=== PATIENT | female | born 1995 | race Caucasian/White ===

== ENCOUNTER 2021-11-15 15:19 | Observation (INO) ==
[~2021-11-15 15:19] MED LIST: SODIUM CHLORIDE 0.9% 1000ML 1,000 ML IV SCH
[2021-11-15] MEDS ORDERED: SODIUM CHLORIDE 0.9% 250 ML IV PRN (15:27)
[2021-11-15] MEDS ORDERED: SODIUM CHLORIDE 0.9% 1000ML 1,000 ML IV ONE (15:27)
--- NOTE | 2021-11-15 15:30 | ED Triage Note ---
Date of Service November 15, 2021 History of Present Illness This patient was briefly evaluated while in triage. An abbreviated physical exam was performed. This patient is a 26-year-old Female who presents to the ED for evaluation of heavy vaginal bleeding. Patient was seen here earlier for a miscarriage. Bleeding has become heavy. She had a syncopal episode in triage. Physical Exam VITALS: Vitals are noted on the nurse's note and reviewed by myself. Vital signs stable. GENERAL: This is a 26-year-old female, pale, diaphoretic. HEART: Tachycardic, rhythm without murmurs gallops or rubs. LUNGS: Clear to auscultation bilaterally without wheezes, rales or rhonchi. NEURO: Patient was alert and oriented to person place and time. Initial orders for labs and / or imaging were placed and patient was placed in the waiting area until a bed is available. Please see further documentation for the full ED course.
[2021-11-15] MEDS ORDERED: SODIUM CHLORIDE 0.9% 1000ML 1,000 ML IV SCH (15:45)
[2021-11-15 16:13] LABS: Partial Thromboplastin Ratio 0.9; Partial Thromboplastin Time 24.7 Seconds (21.0-31.0); Prothrombin Time 10.7 Seconds (9.0-12.0)
--- NOTE | 2021-11-15 16:18 | Emergency Department Note ---
Impression & Plan Vaginal bleeding, Missed , Syncope, Acute hypotension, Anemia ED Provider Note NAME: SAM MCGOWAN AGE: 26 SEX: F : 1995 ARRIVES VIA: Walk-In INFORMANT: Patient, ED PROVIDER(S): Feroz Carmona DO CHIEF COMPLAINT: Vaginal bleeding HPI: Patient is a 26-year-old female who presented to the emergency department f or an evaluation of vaginal bleeding. The patient was seen in our facility earlier today. She was diagnosed with threatened miscarriage. She has an ultrasound from her previous [employer] visit that showed an intrauterine gestation but on her visit to our emergency department today her ultrasound showed a thickened endometrium but no intrauterine gestation. The patient started having worsening bleeding. She started passing clots and became very dizzy. She returned to the emergency department for further evaluation. The patient had a syncopal episode in triage. She was found to be significantly hypotensive. The patient states the bleeding has slowed down but continues. She has pelvic cr amping. ROS: See above HPI for pertinent positives & negatives. A total of 10 systems reviewed and were otherwise negative. PAST MEDICAL HISTORY: See Below PAST SURGICAL HISTORY: See Below FAMILY HISTORY: See Below SOCIAL HISTORY: See Below HOME MEDICATIONS: See Below ALLERGIES: See Below VITALS: See Below PHYSICAL EXAMINATION: GENERAL: The patient is awake and alert. The patient somewhat anxious appearing EYES: The conjunctivae are clear. The pupils are round and reactive. EARS, NOSE, MOUTH AND THROAT: The nose is without any evidence of any deformity. NECK: The neck is nontender and supple. RESPIRATORY: Normal respiratory effort is noted there is no evidence of wheezing rhonchi or rales CARDIOVASCULAR: Regular rate and rhythm noted there no murmurs rubs or gallops normal S1 normal S2. GASTROINTESTINAL: Abdomen is soft and mildly distended. There is no specific tenderness guarding or rigidity. MUSCULOSKELETAL/EXTREMITIES: There is no evidence of gross deformity full range of motion is noted in the hips and shoulders. SKIN: There is no obvious evidence of any rash. There are no petechiae, pallor or cyanosis noted. NEUROLOGIC: Patient is awake alert and oriented x3. MEDICAL DECISION MAKING: The patient is a 26-year-old female who presented to the emergency department for an evaluation of vaginal bleeding. The patient was recently seen in our facility. She was diagnosed with a likely inevitable miscarriage. She was able to be discharged to home last evening. Her case was discussed with [employer]. The patient returns emergency department this evening because of worsening bleeding as well as syncope. The patient was brought directly to a room. She was treated with IV fluids. I discussed the patient's laboratory results with her. She had another syncopal episode with continued vaginal bleeding. For this reason I discussed her case with the on-call [facility] [employer] physician. She was evaluated in the emergency department and was felt to be a better candidate for management in the OR. The patient's hemoglobin was significantly decreased from her hemoglobin last evening. Triage Nursing notes reviewed. Prior medical records reviewed Vital Signs: reviewed and remarkable for elevated blood pressure and tachycardia. The patient was found to have episodes of hypotension as well. Differential diagnosis: Etiologies such as threatened AB, miscarriage, ectopic , dysfunction uterine bleeding, bleeding dyscrasia, trauma, infection, as well as others were entertained. ER treatment provided: See below Diagnostics interpreted by me: ECG: none Cardiac Monitoring: An order was placed for continuous cardiac monitoring. The monitor shows a rate of 96 bpm with sinus rhythm. Laboratory studies: As stated above and show below. Imaging studies: See below Consultation(s): I discussed his case with Dr Vizcaino is on-call for [facility] [employer]. 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 Current Living Situation: Spouse Feels Safe at Home: Yes Assistive Devices: None Allergies Allergies Allergy/AdvReac Type Severity Reaction Status Date / Time No Known Allergies Allergy Mild Unverified 11/15/21 15:33 Home Meds Home Medications Medication Instructions Recorded Confirmed labetalol 100 mg tablet 100 mg PO BID 11/15/21 11/15/21 Previous Rx's Medication Instructions Recorded ferrous sulfate 325 mg (65 mg 325 mg PO DAILY #30 tabs 11/15/21 iron) tablet methylergonovine 0.2 mg tablet 0.2 mg PO QID 24 hours #4 tabs 11/15/21 (Methergine) oxycodone-acetaminophen 5 mg-325 1 tab PO Q4H #12 tabs 11/15/21 mg tablet (Percocet) Results & Data (ED) Vital Signs Vital Signs - 24 hr 11/15/21 15:25 11/15/21 17:22 11/15/21 16:00 Temperature 36 C L Temperature Source Temporal Artery Scan Pulse Rate 107 H Pulse Rate [Apical] Pulse Rate from SpO2 Sensor Pulse Rhythm [Apical] Respiratory Rate 16 Respiratory Effort / Characteristics Non-Labored Respiratory Depth Normal Respiratory Pattern Regular Blood Pressure 65/44 L 140/86 Blood Pressure [Right Arm] Blood Pressure Mean 51 104 Blood Pressure Mean [Right Arm] Blood Pressure Position [Right Arm] Pulse Oximetry 100 98 Oxygen Delivery Method Room Air Room Air Sepsis Recent Fever Within 48 Hours No Sepsis New/Unexplained Change in Mental Status N/A Sepsis Action Taken by Nursing Physician Notified 11/15/21 16:00 11/15/21 16:30 11/15/21 16:30 Temperature Temperature Source Pulse Rate 92 H 97 H Pulse Rate [Apical] Pulse Rate from SpO2 Sensor 95 H 97 H Pulse Rhythm [Apical] Respiratory Rate 18 25 H Respiratory Effort / Characteristics Respiratory Depth Respiratory Pattern Blood Pressure 139/86 Blood Pressure [Right Arm] Blood Pressure Mean 103 Blood Pressure Mean [Right Arm] Blood Pressure Position [Right Arm] Pulse Oximetry 100 100 Oxygen Delivery Method Sepsis Recent Fever Within 48 Hours Sepsis New/Unexplained Change in Mental Status Sepsis Action Taken by Nursing 11/15/21 17:00 11/15/21 17:07 11/15/21 17:10 Temperature Temperature Source Pulse Rate 91 H Pulse Rate [Apical] Pulse Rate from SpO2 Sensor Pulse Rhythm [Apical] Respiratory Rate 27 H Respiratory Effort / Characteristics Respiratory Depth Respiratory Pattern Blood Pressure 136/89 146/79 H Blood Pressure [Right Arm] Blood Pressure Mean 104 101 Blood Pressure Mean [Right Arm] Blood Pressure Position [Right Arm] Pulse Oximetry Oxygen Delivery Method Sepsis Recent Fever Within 48 Hours Sepsis New/Unexplained Change in Mental Status Sepsis Action Taken by Nursing 11/15/21 18:05 11/15/21 18:54 11/15/21 19:20 Temperature 36.9 C 36.5 C Temperature Source Oral Temporal Artery Scan Pulse Rate 88 Pulse Rate [Apical] 110 H 112 H Pulse Rate from SpO2 Sensor Pulse Rhythm [Apical] Regular Regular Respiratory Rate 24 17 20 Respiratory Effort / Characteristics Non-Labored Spontaneous Non-Labored Spontaneous Respiratory Depth Normal Normal Respiratory Pattern Regular Regular Blood Pressure 145/87 H Blood Pressure [Right Arm] 155/79 H 104/39 L Blood Pressure Mean Blood Pressure Mean [Right Arm] 104 60 Blood Pressure Position [Right Arm] Semi-fowlers Semi-fowlers Pulse Oximetry 100 98 100 Oxygen Delivery Method Room Air Sepsis Recent Fever Within 48 Hours Sepsis New/Unexplained Change in Mental Status Sepsis Action Taken by Nursing 11/15/21 19:30 11/15/21 19:40 11/15/21 19:50 Temperature Temperature Source Temporal Artery Scan Temporal Artery Scan Temporal Artery Scan Pulse Rate Pulse Rate [Apical] 103 H 103 H 101 H Pulse Rate from SpO2 Sensor Pulse Rhythm [Apical] Regular Regular Regular Respiratory Rate 25 H 30 H 17 Respiratory Effort / Characteristics Non-Labored Spontaneous Non-Labored Spontaneous Non-Labored Spontaneous Respiratory Depth Normal Normal Normal Respiratory Pattern Regular Regular Regular Blood Pressure Blood Pressure [Right Arm] 132/87 123/87 131/86 Blood Pressure Mean Blood Pressure Mean [Right Arm] 102 99 101 Blood Pressure Position [Right Arm] Semi-fowlers Semi-fowlers Semi-fowlers Pulse Oximetry 100 100 96 Oxygen Delivery Method Room Air Room Air Sepsis Recent Fever Within 48 Hours Sepsis New/Unexplained Change in Mental Status Sepsis Action Taken by Nursing 11/15/21 20:00 11/15/21 20:15 11/15/21 20:30 Temperature 36.5 C Temperature Source Oral Pulse Rate Pulse Rate [Apical] 97 H 98 H 104 H Pulse Rate from SpO2 Sensor Pulse Rhythm [Apical] Regular Regular Regular Respiratory Rate 20 20 20 Respiratory Effort / Characteristics Non-Labored Spontaneous Non-Labored Spontaneous Non-Labored Spontaneous Respiratory Depth Normal Normal Normal Respiratory Pattern Regular Regular Regular Blood Pressure Blood Pressure [Right Arm] 153/88 H 145/91 H 139/93 Blood Pressure Mean Blood Pressure Mean [Right Arm] 109 109 108 Blood Pressure Position [Right Arm] Semi-fowlers Semi-fowlers Semi-fowlers Pulse Oximetry 99 97 99 Oxygen Delivery Method Room Air Room Air Room Air Sepsis Recent Fever Within 48 Hours Sepsis New/Unexplained Change in Mental Status Sepsis Action Taken by Nursing 11/15/21 21:00 Temperature Temperature Source Pulse Rate Pulse Rate [Apical] 99 H Pulse Rate from SpO2 Sensor Pulse Rhythm [Apical] Regular Respiratory Rate 20 Respiratory Effort / Characteristics Non-Labored Spontaneous Respiratory Depth Normal Respiratory Pattern Regular Blood Pressure Blood Pressure [Right Arm] 99/54 L Blood Pressure Mean Blood Pressure Mean [Right Arm] 69 Blood Pressure Position [Right Arm] Semi-fowlers Pulse Oximetry 99 Oxygen Delivery Method Room Air Sepsis Recent Fever Within 48 Hours Sepsis New/Unexplained Change in Mental Status Sepsis Action Taken by Jail Medications Current Medication List: was personally reviewed by me Laboratory Data Attestation: I reviewed the patient's lab results. Result diagrams: 11/16/21 05:36 11/15/21 15:44 Lab Results 11/15/21 11/15/21 11/15/21 Range/Units 15:44 15:44 15:44 WBC 13.09 H (4.8-10.8) K/ul RBC 3.49 L (3.93-5.22) M/uL Hgb 10.8 L D (12.0-16.0) g/dl Hct 30.6 L (34.1-44.9) % MCV 87.7 (80.0-100.0) fL MCH 30.9 (25.0-34.0) pg MCHC 35.3 (32.0-36.0) g/dL RDW Std Deviation 41.2 (36.4-46.3) fL RDW Coeff of [place] 12.9 (11.5-14.5) % Plt Count 342 (130-400) K/uL MPV 9.7 (9.4-12.3) fL Immature Gran % (Auto) 0.4 % Neut % (Auto) 71.8 % Lymph % (Auto) 22.2 % [place] % (Auto) 4.7 % Eos % (Auto) 0.5 % Baso % (Auto) 0.4 % Neut # (Auto) 9.40 H (1.4-6.5) K/uL Lymph # (Auto) 2.91 (1.2-3.4) K/uL [place] # (Auto) 0.61 (0.24-0.82) K/uL Eos # (Auto) 0.07 (0-0.50) K/uL Baso # (Auto) 0.05 (0-0.2) K/uL Immature Gran # (Auto) 0.05 H (0.00-0.02) K/uL PT (9.0-12.0) Seconds INR (0.9-1.1) APTT (21.0-31.0) Seconds PTT Ratio Sodium 129 L (136-145) mmol/L Potassium 3.6 (3.5-5.1) mmol/L Chloride 99 (98-107) mmol/L Carbon Dioxide 21 (21-32) mmol/L Anion Gap 9 (3-11) BUN 6 (6-23) mg/dl Creatinine 0.66 (0.6-1.2) mg/dl Est Cr Clr Drug Dosing Not Reportable Est GFR ( Amer) 140.3 ml/min Est GFR (Non-Af Amer) 121.1 ml/min BUN/Creatinine Ratio 9.1 L (10-20) Glucose 129 H (70-99(Fasting)) mg/dl Calcium 8.9 (8.5-10.1) mg/dl Total Bilirubin 0.4 (0.2-1.0) mg/dl AST 12 L (13-39) U/L ALT 16 (7-52) U/L Alkaline Phosphatase 47 (34-104) U/L Total Protein 6.6 (6.0-8.3) gm/dl Albumin 4.1 (3.4-5.0) gm/dl Globulin 2.5 (2.5-4.0) gm/dl Albumin/Globulin Ratio 1.6 (0.9-2) HCG, Quant 1325 mIU/ml SARS-CoV-2, RNA, NAAT (NEGATIVE) Blood Type Antibody Screen Crossmatch 11/15/21 11/15/21 11/15/21 Range/Units 15:44 16:00 16:21 WBC (4.8-10.8) K/ul RBC (3.93-5.22) M/uL Hgb (12.0-16.0) g/dl Hct (34.1-44.9) % MCV (80.0-100.0) fL MCH (25.0-34.0) pg MCHC (32.0-36.0) g/dL RDW Std Deviation (36.4-46.3) fL RDW Coeff of [place] (11.5-14.5) % Plt Count (130-400) K/uL MPV (9.4-12.3) fL Immature Gran % (Auto) % Neut % (Auto) % Lymph % (Auto) % [place] % (Auto) % Eos % (Auto) % Baso % (Auto) % Neut # (Auto) (1.4-6.5) K/uL Lymph # (Auto) (1.2-3.4) K/uL [place] # (Auto) (0.24-0.82) K/uL Eos # (Auto) (0-0.50) K/uL Baso # (Auto) (0-0.2) K/uL Immature Gran # (Auto) (0.00-0.02) K/uL PT 10.7 (9.0-12.0) Seconds INR 1.0 (0.9-1.1) APTT 24.7 (21.0-31.0) Seconds PTT Ratio 0.9 Sodium (136-145) mmol/L Potassium (3.5-5.1) mmol/L Chloride (98-107) mmol/L Carbon Dioxide (21-32) mmol/L Anion Gap (3-11) BUN (6-23) mg/dl Creatinine (0.6-1.2) mg/dl Est Cr Clr Drug Dosing Est GFR ( Amer) ml/min Est GFR (Non-Af Amer) ml/min BUN/Creatinine Ratio (10-20) Glucose (70-99(Fasting)) mg/dl Calcium (8.5-10.1) mg/dl Total Bilirubin (0.2-1.0) mg/dl AST (13-39) U/L ALT (7-52) U/L Alkaline Phosphatase (34-104) U/L Total Protein (6.0-8.3) gm/dl Albumin (3.4-5.0) gm/dl Globulin (2.5-4.0) gm/dl Albumin/Globulin Ratio (0.9-2) HCG, Quant mIU/ml SARS-CoV-2, RNA, NAAT NEGATIVE (NEGATIVE) Blood Type O Positive Antibody Screen NEGATIVE Crossmatch See Detail 11/15/21 Range/Units 19:46 WBC (4.8-10.8) K/ul RBC (3.93-5.22) M/uL Hgb 10.1 L (12.0-16.0) g/dl Hct 29.6 L (34.1-44.9) % MCV (80.0-100.0) fL MCH (25.0-34.0) pg MCHC (32.0-36.0) g/dL RDW Std Deviation (36.4-46.3) fL RDW Coeff of [place] (11.5-14.5) % Plt Count (130-400) K/uL MPV (9.4-12.3) fL Immature Gran % (Auto) % Neut % (Auto) % Lymph % (Auto) % [place] % (Auto) % Eos % (Auto) % Baso % (Auto) % Neut # (Auto) (1.4-6.5) K/uL Lymph # (Auto) (1.2-3.4) K/uL [place] # (Auto) (0.24-0.82) K/uL Eos # (Auto) (0-0.50) K/uL Baso # (Auto) (0-0.2) K/uL Immature Gran # (Auto) (0.00-0.02) K/uL PT (9.0-12.0) Seconds INR (0.9-1.1) APTT (21.0-31.0) Seconds PTT Ratio Sodium (136-145) mmol/L Potassium (3.5-5.1) mmol/L Chloride (98-107) mmol/L Carbon Dioxide (21-32) mmol/L Anion Gap (3-11) BUN (6-23) mg/dl Creatinine (0.6-1.2) mg/dl Est Cr Clr Drug Dosing Est GFR ( Amer) ml/min Est GFR (Non-Af Amer) ml/min BUN/Creatinine Ratio (10-20) Glucose (70-99(Fasting)) mg/dl Calcium (8.5-10.1) mg/dl Total Bilirubin (0.2-1.0) mg/dl AST (13-39) U/L ALT (7-52) U/L Alkaline Phosphatase (34-104) U/L Total Protein (6.0-8.3) gm/dl Albumin (3.4-5.0) gm/dl Globulin (2.5-4.0) gm/dl Albumin/Globulin Ratio (0.9-2) HCG, Quant mIU/ml SARS-CoV-2, RNA, NAAT (NEGATIVE) Blood Type Antibody Screen Crossmatch Administered Medications Ferrous Sulfate (Ferrous Sulfate 325 Mg Tab) 325 mg PO BIDM MENA Stop: 12/15/21 23:34 Last Admin: 11/16/21 08:00 Dose: 325 mg Documented By: Admin: 11/15/21 23:30 Dose: Not Given Documented By: EMILIANA Lactated Ringer's (Lr) 1,000 mls @ 125 mls/hr IV .Q8H MENA Stop: 12/15/21 22:30 Last Admin: 11/15/21 23:03 Dose: 125 mls/hr Documented By: EMILIANA Ibuprofen (Ibuprofen 600 Mg Tab) 600 mg PO Q6H PRN PRN Reason: Pain Scale 1,2,3,4,5 Stop: 11/16/21 19:12 Last Admin: 11/16/21 08:00 Dose: 600 mg Documented By: AES Discontinued Medications Fentanyl Citrate (Fentanyl Citrate 100 Mcg/2 Ml Vial) 25 mcg IV Q5M PRN PRN Reason: PACU Use Only-Pain Stop: 11/16/21 02:25 Last Admin: 11/15/21 19:47 Dose: 25 mcg Documented By: Admin: 11/15/21 19:42 Dose: 25 mcg Documented By: JOE Sodium Chloride (Nss 1000ml) 1,000 mls @ 999 mls/hr IV .Q1H1M ONE Stop: 11/15/21 16:27 Last Admin: 11/15/21 16:24 Dose: 999 mls/hr Documented By: JAVIER Sodium Chloride (Nss 1000ml) 1,000 mls @ 999 mls/hr IV .Q1H1M MENA Stop: 11/15/21 16:45 Last Infusion: 11/15/21 16:23 Dose: 0 mls/hr Documented By: Admin: 11/15/21 16:23 Dose: 999 mls/hr Documented By: JAVIER Cefazolin Sodium (Ancef 3000mg) 72.5 mls @ 130 mls/hr IV PREOP ONE Stop: 11/15/21 18:12 Last Admin: 11/15/21 18:35 Dose: 130 mls/hr Documented By: [id number] Methylergonovine Maleate (Methylergonovine Maleate 0.2 Mg Tab) 0.2 mg PO NOW STA Stop: 11/15/21 19:38 Last Admin: 11/15/21 21:06 Dose: 0.2 mg Documented By: LB Discharge Plan Visit Data Chief Complaint: Vaginal Bleeding Stated Complaint: WAS HERE EARLIER, STILL BLEEDING HEAVY ED Provider: Feroz Carmona Discharge Problem: Vaginal bleeding, Missed , Syncope, Acute hypotension, Anemia Patient Disposition: Home - Self-Care Discharge Instructions Interventions: ED Discharge Assessment Last Done: 11/15/21 18:54 : Syncope Qualifiers: Syncope type: unspecified Qualified Code(s): R55 - Syncope and collapse Anemia Qualifiers: Anemia type: unspecified type Qualified Code(s): D64.9 - Anemia, unspecified
[2021-11-15 16:21] LABS: Alanine Aminotransferase 16 U/L (7-52); Albumin Globulin Ratio 1.6 (0.9-2); Albumin Level 4.1 gm/dl (3.4-5.0); Alkaline Phosphatase 47 U/L (34-104); Anion Gap 9 (3-11); Aspartate Aminotransferase 12 U/L (13-39); BUN Creatinine Ratio 9.1 (10-20); Bilirubin,Total 0.4 mg/dl (0.2-1.0); Blood Urea Nitrogen 6 mg/dl (6-23); Calcium 8.9 mg/dl (8.5-10.1); Carbon Dioxide 21 mmol/L (21-32); Chloride 99 mmol/L (98-107); Est GFR (African American) 140.3 ml/min; Est GFR (Non-African American) 121.1 ml/min; Globulin 2.5 gm/dl (2.5-4.0); Glucose 129 mg/dl (70-99(Fasting)); Potassium 3.6 mmol/L (3.5-5.1); Sodium 129 mmol/L (136-145); Total Protein 6.6 gm/dl (6.0-8.3)
[2021-11-15 16:22] LABS: Basophils # (auto) 0.05 K/uL (0-0.2); Basophils % (auto) 0.4 %; Eosinophils # (auto) 0.07 K/uL (0-0.50); Eosinophils % (auto) 0.5 %; Hematocrit (blood only) 30.6 % (34.1-44.9); Hemoglobin 10.8 g/dl (12.0-16.0); Immature Granulocytes # (auto) 0.05 K/uL (0.00-0.02); Immature Granulocytes % (auto) 0.4 %; Lymphocytes # (auto) 2.91 K/uL (1.2-3.4); Lymphocytes % (auto) 22.2 %; Mean Corpuscular Hemoglobin 30.9 pg (25.0-34.0); Mean Corpuscular Hgb Conc 35.3 g/dL (32.0-36.0); Mean Corpuscular Volume 87.7 fL (80.0-100.0); Mean Platelet Volume 9.7 fL (9.4-12.3); Monocytes # (auto) 0.61 K/uL (0.24-0.82); Monocytes % (auto) 4.7 %; Neutrophils % (auto) 71.8 %; Platelet Count 342 K/uL (130-400); RDW Coefficient of Variation 12.9 % (11.5-14.5); RDW Standard Deviation 41.2 fL (36.4-46.3); Red Blood Count 3.49 M/uL (3.93-5.22); White Blood Count 13.09 K/ul (4.8-10.8)
[2021-11-15] MEDS ORDERED: NEOSTIGMINE METHYLSULFATE 1 MG/ML 10ML VIAL ONE (17:52)
[2021-11-15] MEDS ORDERED: ROCURONIUM BROMIDE 10 MG/ML 5 ML VIAL IV ONE (17:52)
[2021-11-15] MEDS ORDERED: DEXAMETHASONE SOD INJ 4 MG/ML VIAL ONE (17:52)
[2021-11-15] MEDS ORDERED: SUCCINYLCHOLINE 100MG/5ML SYR IV ONE (17:52)
[2021-11-15] MEDS ORDERED: fentaNYL citrate 100 MCG/2 ML VIAL ONE (17:52)
[2021-11-15] MEDS ORDERED: KETOROLAC 30 MG/ML VIAL ONE (17:52)
[2021-11-15] MEDS ORDERED: ONDANSETRON INJ 2 MG/ML 2 ML VIAL ONE (17:52)
[2021-11-15] MEDS ORDERED: MIDAZOLAM HCL 1 MG/ML 2ML VIAL ONE (17:52)
[2021-11-15] MEDS ORDERED: GLYCOPYRROLATE 0.2 MG/ML VIAL ONE (17:52)
[2021-11-15] MEDS ORDERED: LIDOCAINE 2% MPF LOCAL 5 ML VIAL INFIL ONE (17:52)
[2021-11-15] MEDS ORDERED: PROPOFOL IV EMULSION 10 MG/ML 20 ML VIAL IV ONE (17:52)
--- NOTE | 2021-11-15 17:54 | Anesthesiology Consultation ---
Date of Service November 15, 2021 Assessment & Plan (1) Encounter for pre-operative examination: Chart Review Chart Review: Acceptable Risk for Surgery History Surgery Operation Date: 11/15/21 18:30 Proposed Procedures p Dilation and Evacuation(Not Applicable) - Sandra Barton MD Height/Weight Weight: 122 kg Allergies Allergy/AdvReac Type Severity Reaction Status Date / Time No Known Allergies Allergy Mild Unverified 11/15/21 15:33 Medications Home Medications Medication Instructions Recorded Confirmed Last Taken labetalol 100 mg tablet 100 mg PO BID 11/15/21 11/15/21 Unknown misoprostol 200 mcg tablet 400 mcg vaginal Q4H #4 tabs 11/15/21 11/15/21 Unknown (Cytotec) Past Medical History Medical History (Updated 11/15/21 @ 17:54 by Timo Lagunas MD) COVID-19 11/09/21 No pertinent past medical history Spontaneous in first trimester Past Surgical History Surgical History (Updated 11/15/21 @ 17:54 by Timo Lagunas MD) No significant past surgical history Social History Smoking Status: Never smoker Physical Exam Vital Signs Last Vital Signs Temp 36 C L 11/15/21 15:25 Pulse 91 H 11/15/21 17:10 Resp 27 H 11/15/21 17:10 BP 146/79 H 11/15/21 17:07 Pulse Ox 98 11/15/21 17:22 O2 Del Method 11/15/21 17:22 Testing Laboratory Results 11/15/21 15:44 11/15/21 15:44 PT 10.7 Seconds (9.0-12.0) 11/15/21 15:44 INR 1.0 (0.9-1.1) 11/15/21 15:44 APTT 24.7 Seconds (21.0-31.0) 11/15/21 15:44 HCG, Quant 1325 mIU/ml 11/15/21 15:44 Blood Type O Positive 11/15/21 16:00 Antibody Screen NEGATIVE 11/15/21 16:00 11/15/21 15:44 HCG, Quant 1325
[2021-11-15] MEDS ORDERED: FERRIC SUBSULFATE 8 GM VIAL ONE (18:01)
--- NOTE | 2021-11-15 18:09 | History & Physical Report ---
Date of Service November 15, 2021 Assessment & Plan (1) Episode of heavy vaginal bleeding: Plan: 26-year-old G1, P0 LMP of August 20 and confirmed IUP on October 25, at 11+ weeks by dose, bleeding since yesterday and incomplete , no IUP/gestational sac, retained placenta, heavy vaginal bleeding, status post 3 doses of vaginal misoprostol, Hypotension corrected by IV fluids, Speculum exam revealed large clots and active vaginal bleeding, Discussed the findings and recommended suction D&C under anesthesia, She understood the risks and benefits and signed an informed consent, All questions were answered, See HPI for details. Plan to admit, continue IV fluids, type and cross 2 units of packed red blood cell, cefazolin for preop antibiotic, OR is notified by myself. (2) Incomplete : History of Present Illness Primary Care Provider: Gardenia Fernandez DO Patient is a 26-year-old G1, P0 with LMP of August 20 and confirmed with IUP at 8.6 weeks by transvaginal ultrasound on October 25. She started to have vaginal bleeding yesterday and she came to the ER after midnight. Her bleeding was not heavy and ultrasound showed no IUP, no gestational sac and there were retained products of conception. She was given 400 mcg of misoprostol vaginally and sent home with 2 more doses. She use those doses at 730 and 1:30 PM. Her breathing got more heavier and started to pass large clots and membranes. She started to feel dizzy and lightheaded and came to the ER this afternoon. She denies pain, fever chills, nausea vomiting. She feels dizzy when she sits up in the bed and she was given 2 L of IV fluids to normalize her blood pressures. I performed a bedside ultrasound and saw still retained products of conception in lower uterine segment about 1.5 cm endometrial thickness. There were large blood clots in the vagina. Then I performed a speculum exam and removed at least 200 mL of blood with clots and a piece of tissue and placenta. Discussed the findings and recommended to complete incomplete in the OR with suction and dilatation curettage. She understands the benefits of procedure as completion of incomplete , stop bleeding and understands the risks of procedure as bleeding, infection, uterine perforation, injury to other organs and possible need for further surgeries. Discussed other options as expectant management and continue with Cytotec which may fail and she may keep bleeding. She understands all and she rather wants to proceed with D&C and does not want to try more Cytotec. All questions were answered. Patient was recently diagnosed with COVID 19, symptoms started November 08 and she was tested positive on November 11. She does not have major symptoms, only stuffy nose, no cough, fever chills, chest pain shortness of breath nor difficulty with breathing. 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 She was fully vaccinated and this is her second COVID-19 infection since 2019. Allergies Allergy/AdvReac Type Severity Reaction Status Date / Time No Known Allergies Allergy Mild Unverified 11/15/21 15:33 Home Medications Medication Instructions Recorded Confirmed Type labetalol 100 mg tablet 100 mg PO BID 11/15/21 11/15/21 History misoprostol 200 mcg tablet 400 mcg vaginal Q4H #4 tabs 11/15/21 11/15/21 Rx (Cytotec) Patient History Medical History COVID-19 11/09/21 No pertinent past medical history Spontaneous in first trimester Surgical History No significant past surgical history Social History Smoking Status: Never smoker Preferred Language: Icelandic Feels Safe at Home: Yes Review of Systems as per Subjective / HPI Physical Exam Constitutional: WD/WN, vitals as above well developed, well nourished and comfortable (Worse laying flat due to dizziness when she sits up) Genitourinary: normal external appearance (Covered with blood) Lymphatic: See HPI Results & Data ([facility]) Vital Signs (Past 12 Hours) Vital Signs Temp Pulse Resp BP Pulse Ox O2 Del Method 11/15/21 17:10 91 H 27 H 11/15/21 17:07 146/79 H 11/15/21 17:00 136/89 11/15/21 16:30 97 H 25 H 100 11/15/21 16:30 139/86 11/15/21 16:00 92 H 18 100 11/15/21 16:00 140/86 11/15/21 17:22 98 Room Air 11/15/21 15:25 36 C L 107 H 16 65/44 L 100 Room Air Laboratory Results Lab Results 11/15/21 11/15/21 11/15/21 Range/Units 15:44 15:44 15:44 WBC 13.09 H (4.8-10.8) K/ul RBC 3.49 L (3.93-5.22) M/uL Hgb 10.8 L D (12.0-16.0) g/dl Hct 30.6 L (34.1-44.9) % MCV 87.7 (80.0-100.0) fL MCH 30.9 (25.0-34.0) pg MCHC 35.3 (32.0-36.0) g/dL RDW Std Deviation 41.2 (36.4-46.3) fL RDW Coeff of [place] 12.9 (11.5-14.5) % Plt Count 342 (130-400) K/uL MPV 9.7 (9.4-12.3) fL Immature Gran % (Auto) 0.4 % Neut % (Auto) 71.8 % Lymph % (Auto) 22.2 % [place] % (Auto) 4.7 % Eos % (Auto) 0.5 % Baso % (Auto) 0.4 % Neut # (Auto) 9.40 H (1.4-6.5) K/uL Lymph # (Auto) 2.91 (1.2-3.4) K/uL [place] # (Auto) 0.61 (0.24-0.82) K/uL Eos # (Auto) 0.07 (0-0.50) K/uL Baso # (Auto) 0.05 (0-0.2) K/uL Immature Gran # (Auto) 0.05 H (0.00-0.02) K/uL PT (9.0-12.0) Seconds INR (0.9-1.1) APTT (21.0-31.0) Seconds PTT Ratio Sodium 129 L (136-145) mmol/L Potassium 3.6 (3.5-5.1) mmol/L Chloride 99 (98-107) mmol/L Carbon Dioxide 21 (21-32) mmol/L Anion Gap 9 (3-11) BUN 6 (6-23) mg/dl Creatinine 0.66 (0.6-1.2) mg/dl Est Cr Clr Drug Dosing Not Reportable Est GFR ( Amer) 140.3 ml/min Est GFR (Non-Af Amer) 121.1 ml/min BUN/Creatinine Ratio 9.1 L (10-20) Glucose 129 H (70-99(Fasting)) mg/dl Calcium 8.9 (8.5-10.1) mg/dl Total Bilirubin 0.4 (0.2-1.0) mg/dl AST 12 L (13-39) U/L ALT 16 (7-52) U/L Alkaline Phosphatase 47 (34-104) U/L Total Protein 6.6 (6.0-8.3) gm/dl Albumin 4.1 (3.4-5.0) gm/dl Globulin 2.5 (2.5-4.0) gm/dl Albumin/Globulin Ratio 1.6 (0.9-2) HCG, Quant 1325 mIU/ml SARS-CoV-2, RNA, NAAT (NEGATIVE) Blood Type Antibody Screen Crossmatch 11/15/21 11/15/21 11/15/21 Range/Units 15:44 16:00 16:21 WBC (4.8-10.8) K/ul RBC (3.93-5.22) M/uL Hgb (12.0-16.0) g/dl Hct (34.1-44.9) % MCV (80.0-100.0) fL MCH (25.0-34.0) pg MCHC (32.0-36.0) g/dL RDW Std Deviation (36.4-46.3) fL RDW Coeff of [place] (11.5-14.5) % Plt Count (130-400) K/uL MPV (9.4-12.3) fL Immature Gran % (Auto) % Neut % (Auto) % Lymph % (Auto) % [place] % (Auto) % Eos % (Auto) % Baso % (Auto) % Neut # (Auto) (1.4-6.5) K/uL Lymph # (Auto) (1.2-3.4) K/uL [place] # (Auto) (0.24-0.82) K/uL Eos # (Auto) (0-0.50) K/uL Baso # (Auto) (0-0.2) K/uL Immature Gran # (Auto) (0.00-0.02) K/uL PT 10.7 (9.0-12.0) Seconds INR 1.0 (0.9-1.1) APTT 24.7 (21.0-31.0) Seconds PTT Ratio 0.9 Sodium (136-145) mmol/L Potassium (3.5-5.1) mmol/L Chloride (98-107) mmol/L Carbon Dioxide (21-32) mmol/L Anion Gap (3-11) BUN (6-23) mg/dl Creatinine (0.6-1.2) mg/dl Est Cr Clr Drug Dosing Est GFR ( Amer) ml/min Est GFR (Non-Af Amer) ml/min BUN/Creatinine Ratio (10-20) Glucose (70-99(Fasting)) mg/dl Calcium (8.5-10.1) mg/dl Total Bilirubin (0.2-1.0) mg/dl AST (13-39) U/L ALT (7-52) U/L Alkaline Phosphatase (34-104) U/L Total Protein (6.0-8.3) gm/dl Albumin (3.4-5.0) gm/dl Globulin (2.5-4.0) gm/dl Albumin/Globulin Ratio (0.9-2) HCG, Quant mIU/ml SARS-CoV-2, RNA, NAAT NEGATIVE (NEGATIVE) Blood Type O Positive Antibody Screen NEGATIVE Crossmatch See Detail
[2021-11-15] MEDS ORDERED: ONDANSETRON INJ 2 MG/ML 2 ML VIAL IV PRN (18:25)
[2021-11-15] MEDS ORDERED: PROMETHAZINE HCL 12.5 MG in SODIUM CHLORIDE 0.9% 50 ML IV PRN (18:25)
[2021-11-15] MEDS ORDERED: ATROPINE SULFATE 0.1 MG/ML 10ML SYR IV PRN (18:25)
[2021-11-15] MEDS ORDERED: LABETALOL HCL IV 5 MG/ML 20ML IV PRN (18:25)
[2021-11-15] MEDS ORDERED: OXYTOCIN 10 UNITS/ML 10ML VIAL ONE (18:53)
--- NOTE | 2021-11-15 19:08 | Operative Report ---
Post Operative Report Pre & Post Diagnosis Operation Date: 11/15/21 18:30 <No data on this case meets the specified criteria> I identified the patient and participated in the time-out.: Yes Procedure Operation Date: 11/15/21 18:30 <No data on this case meets the specified criteria> EUA, Suction, D&C Surgeon Sandra Barton MD [employer] OR nurse Estimated Blood Loss 100 Findings Consistent with Post-Op Diagnosis Specimens POC Anesthesia Type General Complications none Description of Procedure See dictated note I attest to the content of the Intraoperative Record and any orders documented therein. Any exceptions are noted below.
[2021-11-15] MEDS ORDERED: MoRPHine SULFATE 4 MG/ML 1 ML CARP\\VIAL IV PRN (19:13)
[2021-11-15] MEDS ORDERED: MoRPHine SULFATE 2 MG/ML CARP IV PRN (19:13)
[2021-11-15] MEDS ORDERED: oxyCODONE/ACETAMINOPHEN 5mg/325mg TAB PO PRN ×2 (19:13)
[2021-11-15] MEDS ORDERED: METHYLERGONOVINE MALEATE 0.2 MG TAB PO STA (19:37)
[2021-11-15] MEDS: fentaNYL citrate 100 MCG/2 ML VIAL IV PRN ×2 (19:42→19:47)
--- NOTE | 2021-11-15 19:57 | Anesthesiology Progress Note ---
Date of Service November 15, 2021 Anesthesia Post Procedure Vital Signs Vital Signs: Temp Pulse Pulse Resp BP BP Pulse Ox 11/15/21 19:50 101 H 17 131/86 96 11/15/21 19:40 103 H 30 H 123/87 100 11/15/21 19:30 103 H 25 H 132/87 100 11/15/21 19:20 36.5 C 112 H 20 104/39 L 100 11/15/21 18:54 88 17 145/87 H 98 11/15/21 18:05 36.9 C 110 H 24 155/79 H 100 11/15/21 17:10 91 H 27 H 11/15/21 17:07 146/79 H 11/15/21 17:00 136/89 11/15/21 16:30 97 H 25 H 100 11/15/21 16:30 139/86 11/15/21 16:00 92 H 18 100 11/15/21 16:00 140/86 11/15/21 17:22 98 11/15/21 15:25 36 C L 107 H 16 65/44 L 100 O2 Del Method 11/15/21 19:50 Room Air 11/15/21 19:40 Room Air 11/15/21 19:30 11/15/21 19:20 11/15/21 18:54 11/15/21 18:05 Room Air 11/15/21 17:10 11/15/21 17:07 11/15/21 17:00 11/15/21 16:30 11/15/21 16:30 11/15/21 16:00 11/15/21 16:00 11/15/21 17:22 Room Air 11/15/21 15:25 Room Air Pain Intensity Abdomen: Pain Intensity: 5 Transfer of Care Handoff Completed per policy Notes Mental Status: alert / awake / arousable Patient Amnestic to Procedure: Yes Nausea / Vomiting: adequately controlled Pain: adequately controlled Airway Patency, RR, SpO2: stable & adequate BP & HR: stable & adequate Hydration State: stable & adequate Anesthetic Complications: no major complications apparent
[2021-11-15 20:34] LABS: Hematocrit (blood only) 29.6 % (34.1-44.9); Hemoglobin 10.1 g/dl (12.0-16.0)
[2021-11-15] MEDS ORDERED: METHYLERGONOVINE MALEATE 0.2 MG TAB PO SCH ×2 (20:52→21:00)
--- NOTE | 2021-11-15 22:39 | Gynecologic Progress Note ---
Date of Service November 15, 2021 Assessment & Plan Admission and Anticipated Discharge Date Admission Date: November 15, 2021 Subjective Late entry from 20:00 Patient is seen and examined in PACU. She feels much better, no more bleeding. She wanted to be discharged tonight. Vital signs were stable afebrile, H&H stable She got up to use the bedside commode but she felt dizzy and lightheaded, She was brought to the bed by nursing team. Discussed about and offered her to stay overnight for observation and repeat H&H. She agreed with the plan. Plan to admit for observation overnight, repeat H&H in 2 hours and in the morning, Continue to monitor closely. Lab Results 11/15/21 11/15/21 11/15/21 Range/Units 15:44 15:44 15:44 WBC 13.09 H (4.8-10.8) K/ul RBC 3.49 L (3.93-5.22) M/uL Hgb 10.8 L D (12.0-16.0) g/dl Hct 30.6 L (34.1-44.9) % MCV 87.7 (80.0-100.0) fL MCH 30.9 (25.0-34.0) pg MCHC 35.3 (32.0-36.0) g/dL RDW Std Deviation 41.2 (36.4-46.3) fL RDW Coeff of [place] 12.9 (11.5-14.5) % Plt Count 342 (130-400) K/uL MPV 9.7 (9.4-12.3) fL Immature Gran % (Auto) 0.4 % Neut % (Auto) 71.8 % Lymph % (Auto) 22.2 % [place] % (Auto) 4.7 % Eos % (Auto) 0.5 % Baso % (Auto) 0.4 % Neut # (Auto) 9.40 H (1.4-6.5) K/uL Lymph # (Auto) 2.91 (1.2-3.4) K/uL [place] # (Auto) 0.61 (0.24-0.82) K/uL Eos # (Auto) 0.07 (0-0.50) K/uL Baso # (Auto) 0.05 (0-0.2) K/uL Immature Gran # (Auto) 0.05 H (0.00-0.02) K/uL PT (9.0-12.0) Seconds INR (0.9-1.1) APTT (21.0-31.0) Seconds PTT Ratio Sodium 129 L (136-145) mmol/L Potassium 3.6 (3.5-5.1) mmol/L Chloride 99 (98-107) mmol/L Carbon Dioxide 21 (21-32) mmol/L Anion Gap 9 (3-11) BUN 6 (6-23) mg/dl Creatinine 0.66 (0.6-1.2) mg/dl Est Cr Clr Drug Dosing Not Reportable Est GFR ( Amer) 140.3 ml/min Est GFR (Non-Af Amer) 121.1 ml/min BUN/Creatinine Ratio 9.1 L (10-20) Glucose 129 H (70-99(Fasting)) mg/dl Calcium 8.9 (8.5-10.1) mg/dl Total Bilirubin 0.4 (0.2-1.0) mg/dl AST 12 L (13-39) U/L ALT 16 (7-52) U/L Alkaline Phosphatase 47 (34-104) U/L Total Protein 6.6 (6.0-8.3) gm/dl Albumin 4.1 (3.4-5.0) gm/dl Globulin 2.5 (2.5-4.0) gm/dl Albumin/Globulin Ratio 1.6 (0.9-2) HCG, Quant 1325 mIU/ml SARS-CoV-2, RNA, NAAT (NEGATIVE) Blood Type Antibody Screen Crossmatch 11/15/21 11/15/21 11/15/21 Range/Units 15:44 16:00 16:21 WBC (4.8-10.8) K/ul RBC (3.93-5.22) M/uL Hgb (12.0-16.0) g/dl Hct (34.1-44.9) % MCV (80.0-100.0) fL MCH (25.0-34.0) pg MCHC (32.0-36.0) g/dL RDW Std Deviation (36.4-46.3) fL RDW Coeff of [place] (11.5-14.5) % Plt Count (130-400) K/uL MPV (9.4-12.3) fL Immature Gran % (Auto) % Neut % (Auto) % Lymph % (Auto) % [place] % (Auto) % Eos % (Auto) % Baso % (Auto) % Neut # (Auto) (1.4-6.5) K/uL Lymph # (Auto) (1.2-3.4) K/uL [place] # (Auto) (0.24-0.82) K/uL Eos # (Auto) (0-0.50) K/uL Baso # (Auto) (0-0.2) K/uL Immature Gran # (Auto) (0.00-0.02) K/uL PT 10.7 (9.0-12.0) Seconds INR 1.0 (0.9-1.1) APTT 24.7 (21.0-31.0) Seconds PTT Ratio 0.9 Sodium (136-145) mmol/L Potassium (3.5-5.1) mmol/L Chloride (98-107) mmol/L Carbon Dioxide (21-32) mmol/L Anion Gap (3-11) BUN (6-23) mg/dl Creatinine (0.6-1.2) mg/dl Est Cr Clr Drug Dosing Est GFR ( Amer) ml/min Est GFR (Non-Af Amer) ml/min BUN/Creatinine Ratio (10-20) Glucose (70-99(Fasting)) mg/dl Calcium (8.5-10.1) mg/dl Total Bilirubin (0.2-1.0) mg/dl AST (13-39) U/L ALT (7-52) U/L Alkaline Phosphatase (34-104) U/L Total Protein (6.0-8.3) gm/dl Albumin (3.4-5.0) gm/dl Globulin (2.5-4.0) gm/dl Albumin/Globulin Ratio (0.9-2) HCG, Quant mIU/ml SARS-CoV-2, RNA, NAAT NEGATIVE (NEGATIVE) Blood Type O Positive Antibody Screen NEGATIVE Crossmatch See Detail 11/15/21 Range/Units 19:46 WBC (4.8-10.8) K/ul RBC (3.93-5.22) M/uL Hgb 10.1 L (12.0-16.0) g/dl Hct 29.6 L (34.1-44.9) % MCV (80.0-100.0) fL MCH (25.0-34.0) pg MCHC (32.0-36.0) g/dL RDW Std Deviation (36.4-46.3) fL RDW Coeff of [place] (11.5-14.5) % Plt Count (130-400) K/uL MPV (9.4-12.3) fL Immature Gran % (Auto) % Neut % (Auto) % Lymph % (Auto) % [place] % (Auto) % Eos % (Auto) % Baso % (Auto) % Neut # (Auto) (1.4-6.5) K/uL Lymph # (Auto) (1.2-3.4) K/uL [place] # (Auto) (0.24-0.82) K/uL Eos # (Auto) (0-0.50) K/uL Baso # (Auto) (0-0.2) K/uL Immature Gran # (Auto) (0.00-0.02) K/uL PT (9.0-12.0) Seconds INR (0.9-1.1) APTT (21.0-31.0) Seconds PTT Ratio Sodium (136-145) mmol/L Potassium (3.5-5.1) mmol/L Chloride (98-107) mmol/L Carbon Dioxide (21-32) mmol/L Anion Gap (3-11) BUN (6-23) mg/dl Creatinine (0.6-1.2) mg/dl Est Cr Clr Drug Dosing Est GFR ( Amer) ml/min Est GFR (Non-Af Amer) ml/min BUN/Creatinine Ratio (10-20) Glucose (70-99(Fasting)) mg/dl Calcium (8.5-10.1) mg/dl Total Bilirubin (0.2-1.0) mg/dl AST (13-39) U/L ALT (7-52) U/L Alkaline Phosphatase (34-104) U/L Total Protein (6.0-8.3) gm/dl Albumin (3.4-5.0) gm/dl Globulin (2.5-4.0) gm/dl Albumin/Globulin Ratio (0.9-2) HCG, Quant mIU/ml SARS-CoV-2, RNA, NAAT (NEGATIVE) Blood Type Antibody Screen Crossmatch Results & Data ([facility]) Vital Signs (Past 12 Hours) Vital Signs Temp Pulse Pulse Resp BP BP Pulse Ox 11/15/21 21:55 99 H 20 134/80 97 11/15/21 21:00 99 H 20 99/54 L 99 11/15/21 20:30 104 H 20 139/93 99 11/15/21 20:15 98 H 20 145/91 H 97 11/15/21 20:00 36.5 C 97 H 20 153/88 H 99 11/15/21 19:50 101 H 17 131/86 96 11/15/21 19:40 103 H 30 H 123/87 100 11/15/21 19:30 103 H 25 H 132/87 100 11/15/21 19:20 36.5 C 112 H 20 104/39 L 100 11/15/21 18:54 88 17 145/87 H 98 11/15/21 18:05 36.9 C 110 H 24 155/79 H 100 11/15/21 17:10 91 H 27 H 11/15/21 17:07 146/79 H 11/15/21 17:00 136/89 11/15/21 16:30 97 H 25 H 100 11/15/21 16:30 139/86 11/15/21 16:00 92 H 18 100 11/15/21 16:00 140/86 11/15/21 17:22 98 11/15/21 15:25 36 C L 107 H 16 65/44 L 100 O2 Del Method 11/15/21 21:55 Room Air 11/15/21 21:00 Room Air 11/15/21 20:30 Room Air 11/15/21 20:15 Room Air 11/15/21 20:00 Room Air 11/15/21 19:50 Room Air 11/15/21 19:40 Room Air 11/15/21 19:30 11/15/21 19:20 11/15/21 18:54 11/15/21 18:05 Room Air 11/15/21 17:10 11/15/21 17:07 11/15/21 17:00 11/15/21 16:30 11/15/21 16:30 11/15/21 16:00 11/15/21 16:00 11/15/21 17:22 Room Air 11/15/21 15:25 Room Air
[2021-11-15 23:00] LABS: Basophils # (auto) 0.03 K/uL (0-0.2); Basophils % (auto) 0.2 %; Eosinophils # (auto) 0.01 K/uL (0-0.50); Eosinophils % (auto) 0.1 %; Hematocrit (blood only) 26.3 % (34.1-44.9); Hemoglobin 9.3 g/dl (12.0-16.0); Immature Granulocytes # (auto) 0.05 K/uL (0.00-0.02); Immature Granulocytes % (auto) 0.4 %; Lymphocytes # (auto) 1.71 K/uL (1.2-3.4); Lymphocytes % (auto) 12.6 %; Mean Corpuscular Hemoglobin 30.7 pg (25.0-34.0); Mean Corpuscular Hgb Conc 35.4 g/dL (32.0-36.0); Mean Corpuscular Volume 86.8 fL (80.0-100.0); Mean Platelet Volume 9.6 fL (9.4-12.3); Monocytes # (auto) 0.17 K/uL (0.24-0.82); Monocytes % (auto) 1.3 %; Neutrophils # (auto) 11.57 K/uL (1.4-6.5); Neutrophils % (auto) 85.4 %; Platelet Count 279 K/uL (130-400); RDW Coefficient of Variation 12.8 % (11.5-14.5); RDW Standard Deviation 40.7 fL (36.4-46.3); Red Blood Count 3.03 M/uL (3.93-5.22); White Blood Count 13.54 K/ul (4.8-10.8)
[2021-11-15] MEDS: LACTATED RINGER'S 1,000 ML IV SCH (23:03)
[2021-11-15] MEDS: FERROUS SULFATE 325 MG TAB PO SCH (23:30)
[2021-11-16 06:04] LABS: Basophils # (auto) 0.04 K/uL (0-0.2); Basophils % (auto) 0.3 %; Hematocrit (blood only) 23.1 % (34.1-44.9); Immature Granulocytes # (auto) 0.05 K/uL (0.00-0.02); Immature Granulocytes % (auto) 0.4 %; Lymphocytes # (auto) 2.96 K/uL (1.2-3.4); Lymphocytes % (auto) 24.6 %; Mean Corpuscular Hemoglobin 30.3 pg (25.0-34.0); Mean Corpuscular Hgb Conc 34.6 g/dL (32.0-36.0); Mean Corpuscular Volume 87.5 fL (80.0-100.0); Mean Platelet Volume 10.5 fL (9.4-12.3); Monocytes # (auto) 0.65 K/uL (0.24-0.82); Monocytes % (auto) 5.4 %; Neutrophils # (auto) 8.33 K/uL (1.4-6.5); Neutrophils % (auto) 69.3 %; Platelet Count 242 K/uL (130-400); RDW Coefficient of Variation 12.9 % (11.5-14.5); RDW Standard Deviation 41.1 fL (36.4-46.3); Red Blood Count 2.64 M/uL (3.93-5.22); White Blood Count 12.03 K/ul (4.8-10.8)
--- NOTE | 2021-11-16 07:55 | Operative Report (OR) ---
DATE OF SURGERY: 11/15/2021. PREOPERATIVE DIAGNOSIS: The patient is a 26-year-old G1, P0 at 12+ weeks by LMP of 08/20/2021, incomplete with heavy vaginal bleeding, passing clots, dropped H and H and retained products of conception. POSTOPERATIVE DIAGNOSIS: The patient is a 26-year-old G1, P0 at 12+ weeks by LMP of 08/20/2021, incomplete with heavy vaginal bleeding, passing clots, dropped H and H and retained products of conception. PROCEDURE: Exam under anesthesia, suction, dilatation and curettage. SURGEON: Sandra Barton MD COMMUNICATIONS EDITOR: OR nurse. ESTIMATED BLOOD LOSS: 100 mL during surgery, the patient lost about 200 mL of clots in the ER during speculum exam and then when she was brought to the OR, she also passed about 300 mL of clot, making the total of 600 estimated blood loss. SPECIMENS: Products of conception, placental membranes. ANESTHESIA: General. ANESTHESIOLOGIST: Dr. Lagunas. COMPLICATIONS: None. FINDINGS: Exam under anesthesia revealed anteverted 8-10 week size uterus, nonpalpable adnexa. Cervix was 1-cm dilated and she was passing large clots as above and the uterus was sounded to be 10 cm. DESCRIPTION OF PROCEDURE: The patient was taken to the operating room where general anesthesia was given without difficulty. She was placed in dorsal lithotomy position, prepared and draped in the usual sterile fashion. Timeout was done, and the bladder was drained with straight catheter. About 1000 mL of clear urine was obtained. Then exam under anesthesia was found with the above findings. Speculum was placed and cervix was visualized, grasped with single tooth tenaculum and the cervix was already 1-cm dilated. Uterus was sounded to be 10 cm and then 8-mm plastic suction tube was introduced from cervix and suction device was started. The uterine cavity was suctioned and the tip was twisted around in a clockwise direction and brought out 3 times. Initially, grayish white tissue was obtained and then just blood with no more tissue. The suction was ended, and uterine cavity was curetted with a small sharp curette on its entirety until uterine cry sensation was felt. Small tissue was obtained and sent to pathology and the bleeding was minimal at that point. The uterus was massaged and found to be firm and contracted. The procedure was ended. All the instruments were removed from the patient's vagina. Cervix was visualized to be hemostatic. It was covered with Monsel solution to prevent oozing later and and the patient's vital signs were stable. No complications happened and I was present during whole procedure. The patient was cleaned and dried, taken out from lithotomy position. She was brought to the recovery room in stable condition. . The patient was given 3 gm of cefazolin before surgery and she was given 0.2 mg of IM Methergine after surgery. Job ID: [id number] [facility] CENTERBeckie
[2021-11-16] MEDS: FERROUS SULFATE 325 MG TAB PO SCH (08:00)
[2021-11-16] MEDS: IBUPROFEN 600 MG TAB PO PRN ×2 (08:00→14:39)
[2021-11-16] MEDS: LACTATED RINGER'S 1,000 ML IV SCH ×2 (08:25→13:30)
[2021-11-16] MEDS ORDERED: LABETALOL HCL 100 MG TAB PO SCH (09:00)
--- NOTE | 2021-11-16 10:13 | Surgery Progress Note ---
Date of Service November 16, 2021 Assessment & Plan (1) Incomplete : Plan discharge home Admission and Anticipated Discharge Date Admission Date: November 15, 2021 Subjective doing well Physical Exam Constitutional: WD/WN, vitals as above Gastrointestinal (Abdomen): abdomen soft and non-tender Musculoskeletal: Extremities: extremities normal to inspection Skin: no rashes, warm and dry Neurologic: patellar DTR's 2+ bilat, sensation intact Psychiatric: A+Ox3, euthymic affect Results & Data ([facility]) Vital Signs (Past 12 Hours) Vital Signs Temp Pulse Resp BP BP Pulse Ox O2 Del Method 11/16/21 07:57 36.9 C 112 H 21 121/64 Room Air 11/16/21 06:00 36.9 C 61 16 130/58 L Room Air 11/16/21 02:00 90 16 135/76 Room Air 11/15/21 22:30 37.0 C 96 H 16 142/83 H Room Air 11/15/21 22:40 Room Air 11/15/21 22:40 37.0 C 96 H 18 142/93 H 99 Room Air Laboratory Results Laboratory Results - last 48 hr 11/15/21 11/15/21 11/15/21 15:44 15:44 15:44 WBC 13.09 H RBC 3.49 L Hgb 10.8 L D Hct 30.6 L MCV 87.7 MCH 30.9 MCHC 35.3 RDW Std Deviation 41.2 RDW Coeff of [place] 12.9 Plt Count 342 MPV 9.7 Immature Gran % (Auto) 0.4 Neut % (Auto) 71.8 Lymph % (Auto) 22.2 [place] % (Auto) 4.7 Eos % (Auto) 0.5 Baso % (Auto) 0.4 Neut # (Auto) 9.40 H Lymph # (Auto) 2.91 [place] # (Auto) 0.61 Eos # (Auto) 0.07 Baso # (Auto) 0.05 Immature Gran # (Auto) 0.05 H PT INR APTT PTT Ratio Sodium 129 L Potassium 3.6 Chloride 99 Carbon Dioxide 21 Anion Gap 9 BUN 6 Creatinine 0.66 Est Cr Clr Drug Dosing Not Reportable Est GFR ( Amer) 140.3 Est GFR (Non-Af Amer) 121.1 BUN/Creatinine Ratio 9.1 L Glucose 129 H Calcium 8.9 Total Bilirubin 0.4 AST 12 L ALT 16 Alkaline Phosphatase 47 Total Protein 6.6 Albumin 4.1 Globulin 2.5 Albumin/Globulin Ratio 1.6 HCG, Quant 1325 SARS-CoV-2, RNA, NAAT Blood Type Antibody Screen Crossmatch 11/15/21 11/15/21 11/15/21 15:44 16:00 16:21 WBC RBC Hgb Hct MCV MCH MCHC RDW Std Deviation RDW Coeff of [place] Plt Count MPV Immature Gran % (Auto) Neut % (Auto) Lymph % (Auto) [place] % (Auto) Eos % (Auto) Baso % (Auto) Neut # (Auto) Lymph # (Auto) [place] # (Auto) Eos # (Auto) Baso # (Auto) Immature Gran # (Auto) PT 10.7 INR 1.0 APTT 24.7 PTT Ratio 0.9 Sodium Potassium Chloride Carbon Dioxide Anion Gap BUN Creatinine Est Cr Clr Drug Dosing Est GFR ( Amer) Est GFR (Non-Af Amer) BUN/Creatinine Ratio Glucose Calcium Total Bilirubin AST ALT Alkaline Phosphatase Total Protein Albumin Globulin Albumin/Globulin Ratio HCG, Quant SARS-CoV-2, RNA, NAAT NEGATIVE Blood Type O Positive Antibody Screen NEGATIVE Crossmatch See Detail 11/15/21 11/15/21 11/16/21 19:46 22:51 05:36 WBC 13.54 H 12.03 H RBC 3.03 L 2.64 L Hgb 10.1 L 9.3 L 8.0 L Hct 29.6 L 26.3 L 23.1 L MCV 86.8 87.5 MCH 30.7 30.3 MCHC 35.4 34.6 RDW Std Deviation 40.7 41.1 RDW Coeff of [place] 12.8 12.9 Plt Count 279 242 MPV 9.6 10.5 Immature Gran % (Auto) 0.4 0.4 Neut % (Auto) 85.4 69.3 Lymph % (Auto) 12.6 24.6 [place] % (Auto) 1.3 5.4 Eos % (Auto) 0.1 0.0 Baso % (Auto) 0.2 0.3 Neut # (Auto) 11.57 H 8.33 H Lymph # (Auto) 1.71 2.96 [place] # (Auto) 0.17 L 0.65 Eos # (Auto) 0.01 0.00 Baso # (Auto) 0.03 0.04 Immature Gran # (Auto) 0.05 H 0.05 H PT INR APTT PTT Ratio Sodium Potassium Chloride Carbon Dioxide Anion Gap BUN Creatinine Est Cr Clr Drug Dosing Est GFR ( Amer) Est GFR (Non-Af Amer) BUN/Creatinine Ratio Glucose Calcium Total Bilirubin AST ALT Alkaline Phosphatase Total Protein Albumin Globulin Albumin/Globulin Ratio HCG, Quant SARS-CoV-2, RNA, NAAT Blood Type Antibody Screen Crossmatch
[2021-11-16 18:30] LABS: Hematocrit (blood only) 22.3 % (34.1-44.9); Hemoglobin 7.7 g/dl (12.0-16.0)
--- NOTE | 2021-11-20 09:22 | Discharge Summary (DS) ---
DATE OF ADMISSION: 11/15/2021. DATE OF DISCHARGE: 11/16/2021. DETAILS OF ADMISSION: The patient is a 26-year-old G1, P0 with LMP of 08/20/2021 and at 12+ weeks wi th incomplete , heavy vaginal bleeding and status post 3 doses of vaginal misoprostol, presen chetan to ER with heavy bleeding and hypotension, which was corrected with IV fluids. Speculum exam rev ealed large clots and active vaginal bleeding. The patient was consented for exam under anesthesia, suction and D and C. She understood the risks and benefits and signed the informed consent. She was typed and crossed 2 units of blood. She was taken to the operating room from ER. There, she had ex am under anesthesia, suction and dilatation and curettage. She lost about 600 mL of blood before claudia matti and total during surgery. Her surgery was uncomplicated. See dictated op note for details. On postop period, the patient desired to go home, but she was seen by myself in PACU. She was feeling dizzy and lightheaded upon ambulation and her blood pressures were on the lower side. Decision was m christopher to keep her overnight for observation, IV fluids and repeat H and H. Her H and H was 10.8/32.6 i n the ER just before surgery. She was taken to fourth floor for observation. Her repeat H and H was 10.1/29.6 after surgery and then 9.3/26.3 at same night around 11 p.m. She was kept overnight, IV f luids were given. She was on regular diet. She was seen by Dr. Moscoso in the morning and her repeat H and H was 10/30. She was discharged home by Dr. Moscoso. Discharge instructions were given. Prescri ptions were written for iron and pain. She is to be seen in the office in a week. All questions wer e answered. Job ID: [id number]
== END 2021-11-16 20:18 | disposition home or self-care (01) ==
LOC: ED 15:19 → 4E1 18:30 → OR 18:30

== ENCOUNTER 2023-05-27 07:38 | Inpatient (IN) ==
--- OUTSIDE RECORDS SUMMARY | 2023-05-27 07:49 | External Medical Summary | Summary of Care ---
Author Name Unknown Organization [facility] Address [address] [place] [address] Phone [phone] Care Team Providers Care Manager Cosmetics Name Role Phone Rebecca Gardenia Palacio DO Primary Care Provider Reason for Visit * Reason Comments Return Visit Non Stress Test Encounter Details Date Type Department Care Team (Late st Contact Info) Description 05/21/2023 2:30 PM EDT Office Visit Gynecology/Obstetric s [facility] [address] [place] [address] Lenka Haley MD [address] [place], [place] [id number] [place] Non Stress Tests Aneta [address] [place] [address] 38 weeks gestation of *; Supervision of high risk in third trimester; Obesity in , antepartum; Chronic hypertension in ; Positive GBS test; Recurrent loss, currently Allergies No known active allergiesdocumented as of this encounter (statuses as of 05/22/2023) Medications Medication Sig Dispensed Refills Start Date End Date Status 19 29-1 MG Oral Tablet Chewable Take by mouth . 0 Active Doxylamine Succinate (Sleep) 25 MG Oral Tablet Take 1 Tablet by mouth at bedtime as needed. 0 Active Aspirin 81 MG Oral Capsule Take by mouth. 0 Active Labetalol HCl 200 MG Oral Tablet (Normodyne)Indication s:HTN, goal below 140/90 Take 1 tablet by mouth twice daily 60 Tablet 11 04/29/2023 Active documented as of this encounter (statuses as of 05/22/2023) Active Problems Problem Noted Date Diagnosed Date Positive GBS test 05/21/2023 , supervision, high-risk 10/31/2022 Obesity in , antepartum 10/31/2022 Overview: Pre gravid BMI: 39.3 Class 2 obesity Lab Results Component Value Date/Time 50-G GESTATIONAL GLUCOSE, 1 HOUR - [facility] 131 (H) 11/15/2022 02:27 PM 100-G GESTATIONAL GLUCOSE, 1 HOUR - [facility] 173 11/29/2022 10:06 AM 100-G GESTATIONAL GLUCOSE, 2 HOUR - [facility] 63 (L) 11/29/2022 11:10 AM 100-G GESTATIONAL GLUCOSE, 3 HOUR - [facility] 63 (L) 11/29/2022 12:05 PM 100-G GESTATIONAL GLUCOSE, FASTING - [facility] 106 (H) 11/29/2022 09:05 AM HEMOGLOBIN A1C - [facility] 5.4 09/05/2021 09:31 AM Baseline Preeclampsia Labs Lab Results Component Value Date/Time PLATELET AUTO - [facility] 263 10/31/2022 02:26 PM CREATININE - [facility] 0.6 10/31/2022 02:26 PM AST - [facility] 15 10/31/2022 02:26 PM ALT - [facility] 20 10/31/2022 02:26 PM PROTEIN/ CREATININE RATIO, URINE - [facility] 113 10/31/2022 02:16 PM Last Assessment & Plan: She presents for follow-up of growth and completion of anatomy secondary to class II obesity and CHTN on medications. Today's ultrasound notes the following: The estimated weight is appropriate for gestational age in the 60th percentile. The visualized anatomy is unremarkable in appearance. The amniotic fluid amount appears normal. Recurrent loss, currently Overview: Miscarriages x 2: Nov 2021 and Feb 2022 Both within first trimester Chronic hypertension in 10/31/2022 Overview: Hypertension diagnosed in August 2021 Labetalol 200 mg PO BID Checking daily BP at home, running 110-120's / 80's Obtain baseline lab work JERICA (if not already done) with assessment of proteinuria (24-hour urine protein or hlxpijv-ym-wzqospgtkn ratio) and CBC, serum AST/ALT/creatinine. If patient has had hypertension for 10 years or more, obtain an EKG and eye exam (if not performed within the past year). Recommend initiation of aspirin (81mg) daily, from 13 weeks until delivery, to decrease the risk of superimposed preeclampsia. Daily home blood pressure monitoring, especially in the second half of the . It may be useful to have the patient validate their home device with their primary OB care provider's office. Patients with BP less than 140/90 maintained with antihypertensives should continue medication during . Discontinuation of ROBIN inhibitors or angiotensin type II receptor antagonists under the guidance of the primary care physician prior to conception of or upon knowledge of . Initiate or adjust antihypertensive medication if BP is 140/90 or greater on at least two occasions at least 4 hours apart and refer patient back to Maternal- Medicine. Titrate medication to maintain blood pressure in a goal range 120-140/70-90. Labetalol and Nifedipine are considered safe for use in and these agents are considered as first-line therapy when indicated. Maternal Medicine ultrasound for anatomy at 19-20 weeks. surveillance as follows: If being treated with anti-hypertensives: Maternal- Medicine ultrasound for growth every 4 weeks starting at 24-26 weeks surveillance weekly starting at 32 weeks gestation Delivery should be individualized based on blood pressure control and assessment of patient risk and is indicated as follows: For those on anti-hypertensive medications: Between 37 0/7 and 39 6/7 weeks Baseline Preeclampsia Labs Lab Results Component Value Date/Time PLATELET AUTO - [facility] 263 10/31/2022 02:26 PM CREATININE - [facility] 0.6 10/31/2022 02:26 PM AST - [facility] 15 10/31/2022 02:26 PM ALT - [facility] 20 10/31/2022 02:26 PM PROTEIN/ CREATININE RATIO, URINE - [facility] 113 10/31/2022 02:16 PM BP Readings from Last 8 Encounters: 10/31/22 128/70 05/07/22 128/80 02/08/22 140/78 11/27/21 124/76 10/25/21 128/82 10/05/21 138/72 09/05/21 140/82 06/12/21 140/82 Last Assessment & Plan: Considerations: Women with chronic hypertension during are at significantly increased risk for morbidity. Signs and symptoms of superimposed pre-eclampsia were reviewed; instructed patient to contact primary OB care provider if these symptoms occur. Recommendations: Obtain baseline lab work JERICA (if not already done) with assessment of proteinuria (24-hour urine protein or fmdiaht-zy-hlugdjvpyd ratio) and CBC, serum AST/ALT/creatinine. If patient has had hypertension for 10 years or more, obtain an EKG and eye exam (if not performed within the past year). Recommend initiation of aspirin (81mg) daily, from 13 weeks until delivery, to decrease the risk of superimposed preeclampsia. Daily home blood pressure monitoring, especially in the second half of the . It may be useful to have the patient validate their home device with their primary OB care provider's office. Patients with BP less than 140/90 maintained with antihypertensives should continue medication during . Discontinuation of ROBIN inhibitors or angiotensin type II receptor antagonists under the guidance of the primary care physician prior to conception of or upon knowledge of . Initiate or adjust antihypertensive medication if BP is 140/90 or greater on at least two occasions at least 4 hours apart and refer patient back to Maternal- Medicine. Titrate medication to maintain blood pressure in a goal range 120-140/70-90. Labetalol and Nifedipine are considered safe for use in and these agents are considered as first-line therapy when indicated. Maternal Medicine ultrasound for anatomy at 19-20 weeks. surveillance as follows: If being treated with anti-hypertensives: Maternal- Medicine ultrasound for growth every 4 weeks starting at 24-26 weeks surveillance weekly starting at 32 weeks gestation Delivery should be individualized based on blood pressure control and assessment of patient risk and is indicated as follows: For those on anti-hypertensive medications: Between 37 0/7 and 39 6/7 weeks Hyperprolactinemia 05/07/2022 Body mass index (BMI) of 40.0 to 44.9 in adult 1 Overview: Per Obesity protocol Estimated Date of Delivery Comme nts Yes 06/03/2023 Based on last me nstrual period of 08/27/2022 documented as of this encounter (statuses as of 05/22/2023) Resolved Problems Problem Noted Date Diagnosed Date Resolved Date Miscarriage 11/14/2022 11/14/2022 Overview: Miscarriages x2 : 11/2021 and Both within first trimester Mar 2022: APS & Lupus anticoagulant testing:negative Chronic hypertension in 02/08/2022 02/08/2022 Overview: Labetalol Obesity in , antepartum 02/08/2022 04/10/2022 Overview: Class 3 Early GTT, preE labs, growth q4 wks Supervision of high-risk pre gnancy, unspecified trimester 10/25/2021 04/10/2022 Obesity, Class III, BMI 40-4 9.9 (morbid obesity) 10/25/2021 11/27/2021 Chronic hypertension in 10/25/2021 04/10/2022 Overview: Weekly NSTs 32 weeks Body mass index (BMI) of 40. 0 to 44.9 in adult 10/15/2021 11/22/2021 Overview: Per Obesity protocol documented as of this encounter (statuses as of 05/22/2023) Immunizations Name Administration Dates Next Due COVID-19 mRNA, LNP-s, No Pre serve, 2-Dose Series ([employer]) 07/01/2020,06/09/2020 COVID-19, LNP-s, No Preserve , Manny-sucrose, Ages 12+ (Pfizer) 01/29/2021 Hepatitis B, 0-19 yrs 09/29/2014,08/29/2014 Hepatitis B, 20+ yrs 03/14/2015 Meningococcal MCV4P Conjugat e Vaccine (Menactra) 10/18/2010 PPD 07/21/2013 Seasonal Influenza Virus Vac cine, Unspecified Formulation 11/30/2019 Seasonal Influenza, PF, 6 M & above, IM , (FluLaval or Fluzone) 12/13/2022,12/19/2021 Seasonal Influenza, Quadriva lent, No Preserve, IM 12/28/2020,12/23/2018,12/09/2017 Seasonal Influenza, Split, I IV3, With Preserve, Inj 11/28/2016,01/04/2015 TB Niurka Test 06/09/2015 TD, Preservative Free 05/10/2016 TDAP (age 10 and older)(Boostrix) 03/12/2023, documented as of this encounter Social History Tobacco Use Types Packs/Day Years Used Date Smoking Tobacco: Never Smokeless Tobacco: Never Alcohol Use Standard Drinks/Week Comments Not Currently 0 (1 standard drink = 0.6 oz pure alcohol) rare, once or twice a month 1-2 drinks AUDIT-C Answer Date Recorded Frequency of Alcohol Consumption Monthly or less 02/24/2019 Average Number of Drinks Not on file 019 Frequency of Binge Drinking Not on file 02/07 PHQ-2 Answer Date Recorded PHQ Adult Total Score 0 10/05/2021 Hunger Vital Sign Answer Date Recorded Within the past 12 months, y ou worried that your food would run out before you got the money to buy more. Never true 01/11/20 23 Within the past 12 months, t he food you bought just didn't last and you didn't have money to get more. Never true 01/10/2023 [place] Depression Scale Answer Date Recorded [facility] Depression Scale Total 3 03/26/2023 The thought of harming myself has occurred to me . Never 03/26/2023 Estimated Date of Delivery Comme nts Yes 06/03/2023 Based on last me nstrual period of 08/27/2022 Sex and Gender Information Value Date Recorded Sex Assigned at Female 08/27/2021 9:03 PM EDT Gender Identity Female 08/27/2021 9:03 PM EDT Sexual Orientation Straight 08/27/2021 9: 03 PM EDT Job Start Date Occupation Industry Not on file Not on file Not on file documented as of this encounter Last Filed Vital Signs Vital Sign Reading Time Taken Comments Blood Pressure 116/64 05/21/2023 2:17 PM EDT Pulse - - Temperature - - Respiratory Rate - - Oxygen Saturation - - Inhaled Oxygen Concentration - - Weight 132.5 kg (292 lb) 05/21/2023 2:17 PM EDT Height 182.9 cm (6') 05/21/2023 2:17 PM EDT Body Mass Index 39.6 05/21/2023 2:17 PM EDT documented in this encounter Progress Notes * Lenka Haley MD - 05/21/2023 2:30 PM EDT Patient is 27 year old at 38 1/7 weeks who presents for DECLAN visit Denies contractions, leaking of fluid, or vaginal bleeding. Noted good movement Denies headache, blurry vision, RUQ or epigastric pain. Last MFM growth 05/01 EFW 2436 g at 27%ile. Notes compliance to meds. Would liked checked today Problem list reviewed BP 116/64 | Ht 1.829 m (6') | Wt 132.5 kg (292 lb) | LMP 08/27/2022 | BMI 39.60 kg/m | BSA 2.59 m Cx: 1-/-3 Metal Roofing Mechanic Documentation Provider requested metal melter. Name of metal melter: Regan Mccurdy LPN ASSESSMENT assessment with Non-stress test completed on 05/21/2023 at 38 1/7 gestation for indication of chronic hypertension heart baseline: 130 bpm Variability: Moderate Accelerations: present Decelerations: absent Contractions: None NST strip reviewed, interpreted, and approved by OB provider, Lynsey Haley. NST strip stored in clinic storage file NST start time: 1417 NST stop time: 1440 Plan: Labor and preeclampsia warnings reviewed IOL 05/26 at [facility] Lynsey Haley MD PhD documented in this encounter Nursing Notes * She Murry LPN - 05/21/2023 2:41 PM EDT 38w1d NST, DECLAN Denies concerns. documented in this encounter Miscellaneous Notes * Addendum Note - She Murry LPN - 05/22/2023 1:21 PM EDT Addended by: SHE MURRY on: 05/22/2023 01:21 PM Modules accepted: Orders documented in this encounter Plan of Treatment Upcoming Encounters Date Type Department Care Team (Late st Contact Info) Description 05/28/2023 1:00 PM EDT Office Visit Gynecology/Obstetrics [facility] [place] [address] [place] [address] Ilene Anderson CRNP [address] [place] [address] Kiki Mustafa Stress Tests An[facility] [address] [place] [address] 06/02/2023 1:00 PM EDT Office Visit Gynecology/Obstetrics [facility]ie Mustafa [address] [place] [address] Ilene Anderson CRNP [address] [place] [address] Kiki Mustafa Stress Tests Aneta [address] [place] [address] Health Maintenance Due Date Last Done Comments Depression Screening 10/05/2022 10/05/2021 COVID-19 Vaccine ( - season) 2022 01/29/2021, 07/01/2020, 06/09/2020 GFR 11/01/2023 10/31/2022, 04/2021, 11/15/2021, Additional history exists Pap Smear 10/31/2025 10/31/2022, 11/09, 12/20/2016 DTaP,Tdap,and Td Vaccines (4 - Td or Tdap) 03/12/2033 03/12/2023, 05/10/2016, 07/23/2013 GARDASIL-HPV IMMUNIZATION SERIES Addressed 01/20/2008, 05/13/2007, 03/10/2007 Overridden with the intention of not completing the topic MENINGOCOCCAL (MENACTRA/MENVEO) Completed 10/18/2010 Hepatitis B Completed 03/14/2015, 09/08, 08/29/2014 Influenza Vaccine (FLU shot) Completed 12/13/2022, 12/19/2021, 12/28/2020, Additional history exists Pneumococcal Vaccine: Pediatrics (0 to 5 Years) and At-Risk Patients (6 to 64 Years) Aged Out No longer eligible based on patient's age to complete this topic documented as of this encounter Medical Devices Not on filedocumented as of this encounter Procedures Procedure Name Priority Date/Time Associated Diagnosis Comments URINALYSIS, POINT OF CARE (ENTER/EDIT) Routine 05/22/2023 Chronic hypertension in documented in this encounter Results * URINALYSIS, POINT OF CARE (ENTER/EDIT) (05/22/2023) Color, Urine Yellow Yellow or Light Yellow Clarity, Urine Clear Clear Glucose, Urine Negative Negative mg/dL Bilirubin, Urine Negative Negative Ketone, Urine Negative Negative mg/dL Specific [place], Urine 1.020 1.003 - 1.030 Blood, Urine Negative Negative pH, Urine 8.0 5.0 - 7.5 units Protein, Urine Negative Negative mg/dL Urobilinogen, Urine 0.2 0.2 - 1.0 mg/dL Nitrite, Urine Negative Negative Esterase, Urine Negative Negative Urine 05/22/2023 Lenka Haley MD LAB POINT OF C ARE TEST ENTER/EDIT ORDERABLES documented in this encounter Visit Diagnoses Diagnosis 38 weeks gestation of - Primary state, incidental Supervision of high risk in third trimester Unspecified high-risk Obesity in , antepartum Obesity complicating , childbirth, or the puerperium, antepartum condition or complication Chronic hypertension in Benign essential hypertension complicating , childbirth, and the puerperium, unspecified as to episode of care Positive GBS test Recurrent loss, currently Recurrent loss, unspecified as to episode of care or not applicable documented in this encounter Care Teams Manager Cosmetics Relationship Specialty Start Date End Date Gardenia Fernandez DO [address] [place] [address] PCP - General Family Medicine 12/24/11 documented as of this encounter"
--- OUTSIDE RECORDS SUMMARY | 2023-05-27 07:50 | External Medical Summary | Summary of Care ---
Author Name Unknown Organization [facility] Address [address] [place] [address] Phone [phone] Care Team Providers Care Manager Sales Support Name Role Phone Lacey Fernandez DO Primary Care Provider Reason for Visit * Reason Comments eRx-Medication Refill Encounter Details Date Type Department Care Team (Late st Contact Info) Description 04/29/2023 Refill Family Practice [facility] [address] [facility] [place] [address] Lacey Fernandez DO [address] [place] [address] HTN, goal below 140/90 Allergies No known active allergiesdocumented as of this encounter (statuses as of 04/29/2023) Medications Medication Sig Dispensed Refills Start Date End Date Status 19 29-1 MG Oral Tablet Chewable Take by mouth . 0 Active Doxylamine Succinate (Sleep) 25 MG Oral Tablet Take 1 Tablet by mouth at bedtime as needed. 0 Active Aspirin 81 MG Oral Capsule Take by mouth. 0 Active Labetalol HCl 200 MG Oral Tablet (Normodyne)Indica tions:HTN, goal below 140/90 Take 1 tablet by mouth twice daily 60 Tablet 11 04/29/2023 Active Labetalol HCl 200 MG Oral Tablet (Normodyne)Indica tions:HTN, goal below 140/90 Take 1 Tablet by mouth in the morning and 1 Tablet before bedtime. 60 Tablet 11 05/07/2022 04/29/2023 Discontinued documented as of this encounter (statuses as of 04/29/2023) Active Problems Problem Noted Date Diagnosed Date , supervision, high-risk 10/31/2022 Obesity in , [...] assessment of proteinuria (24-hour urine protein or ikwqovi-ne-ircexbevkw ratio) and CBC, serum AST/ALT/creatinine. If patient [...] assessment of proteinuria (24-hour urine protein or pabdkeg-cf-dnteupwxzr ratio) and CBC, serum AST/ALT/creatinine. If patient [...] as of this encounter (statuses as of 04/29/2023) Resolved Problems Problem Noted Date Diagnosed Date [...] as of this encounter (statuses as of 04/29/2023) Immunizations Name Administration Dates Next Due COVID-19 mRNA, LNP-s, No Pre serve, 2-Dose Series ([employer]izz) 07/01/2020,06/09/2020 COVID-19, LNP-s, No Preserve , Manny-sucrose, [...] money to get more. Never true 01/10/2023 [place] Depression Scale Answer Date Recorded [place] Depression Scale Total 3 03/26/2023 The thought [...] on file documented as of this encounter Miscellaneous Notes * Telephone Encounter - Lacey Fernandez DO - 04/29/2023 2:33 PM EST Signed Prescriptions: Disp Refills Labetalol HCl 200 MG Oral Tablet (Normodyn*60 Tab*11 Sig: Take 1 tablet by mouth twice daily Authorizing Provider: LACEY FERNANDEZ * Telephone Encounter - Carrie De Dios [facility] - 04/29/2023 2:10 PM ESTPending Prescriptions: Disp Refills Labetalol HCl 200 MG Oral Tablet (Normodyn*60 Tab*11 Sig: Take 1 tablet by mouth twice daily * Telephone Encounter - Carrie De Dios [facility] - 04/29/2023 2:10 PM EST Unable to authorize medication refills for pended medication(s) at this time. Part of the protocol criteria used for refill authorization was not satisfied. Patient is . Please approve if appropriate. Thanks, Carrie De Dios Clinical Pharmacist [facility] [phone] 04/29/2023, 2:10 PM * Telephone Encounter - Carrie De Dios [facility] - 04/29/2023 2:10 PM EST Did you pend patient's preferred pharmacy and medication before forwarding?yes Pharmacy: [facility] [address] [address] [address] Pending Prescriptions: Disp Refills Labetalol HCl 200 MG Oral Tablet (Normody*60 Tab*11 Sig: Take 1 tablet by mouth twice daily Last Visit: 05/07/2022 (in office), Visit date not found (telemedicine) Next Visit: Visit date not found If no future appointments scheduled, and last appointment is greater than a year ago, please schedule patient for a follow-up appointment Last date the medication was ordered: 05/07/22 Is this request for a controlled substance?No Urine Drug Screen:No results found for this or any previous visit. Patient Phone Numbers Labs: Lab Results Component Value Date/Time CREAT 0.6 10/31/2022 02:26 PM CREAT 0.54 (L) 11/15/2021 12:00 AM POTASSIUM 4.5 02/08/2022 10:20 AM POTASSIUM 3.7 11/15/2021 12:00 AM TSH 1.54 04/09/2022 11:04 AM LDLCALC 95 09/05/2021 09:31 AM LDLCALC 86 03/07/2017 07:36 AM LDLDIRECT NOT APPLICABLE 03/07/2017 07:36 AM ALT 20 10/31/2022 02:26 PM HGBA1C 5.4 09/05/2021 09:31 AM documented in this encounter Plan of Treatment Upcoming Encounters Date Type Department Care Team (Late st Contact Info) Description 04/30/2023 1:00 PM EST Office Visit Gynecology/Obstetrics Goldie Mustafa [address] [place] [address] Ilene Anderson CRNP [address] [place] [address] Kiki Mustafa Stress Tests [place] [address] 05/01/2023 9:30 AM EST Imaging Maternal Medicine Imaging, Aneta Mustafa [address] [place] [phone] 05/07/2023 2:30 PM EST Office Visit Gynecology/Obstetrics Goldie Mustafa [address] [place] [address] Devon Sparks MD [address] [place] [address] Mustafa, Non Stress Tests Aneta [address] [place] [address] 05/14/2023 2:30 PM EST Office Visit Gynecology/Obstetrics Goldie Brewers [address] [place] [address] Madisyn Marino CRNP [address] [place] [address] Mustafa, Non Stress Tests Aneta [address] [place] [address] 05/21/2023 2:30 PM EDT Office Visit Gynecology/Obstetrics Goldie Mustafa [address] [place] [address] Lenka Haley MD [address] [place] [address] [place] [address] Mustafa, Non Stress Tests Aneta [address] [place] [address] 05/28/2023 1:00 PM EDT Office Visit Gynecology/Obstetrics Goldie Mustafa [address] [place] [address] Ilene Anderson CRNP [address] [place] [address] Mustafa, Non Stress Tests Aneta [address] [place] [address] 06/02/2023 1:00 PM EDT Office Visit Gynecology/Obstetrics [facility] Must[facility] [address] [place] [address] Ilene Anderson CRNP [address] [place] [address] Mustafa, Non Stress Tests Aneta [address] [place] [address] Health Maintenance Due Date Last Done Comments Depression Screening 10/05/2022 10/05/2021 COVID-19 Vaccine (4 - 2022- season) 2022 01/29/2021, 07/01/2020, 06/09/2020 GFR 11/01/2023 10/31/2022, 1204/2021, 11/15/2021, Additional history exists Pap Smear 10/31/2025 [...] Not on filedocumented as of this encounter Visit Diagnoses Diagnosis HTN, goal below 140/90 Unspecified essential hypertension documented in this encounter Care Teams Manager Sales Support Relationship Specialty Start Date End Date Lacey Fernandez DO [address] [place] [address] PCP - General Family Medicine 12/24/11 documented as of this encounter
--- OUTSIDE RECORDS SUMMARY | 2023-05-27 07:50 | External Medical Summary ---
Author Name Unknown Address Unknown Organization K01:[facility] [place] [address] [place] [address] Laboratory Report Ordering Provider Test Date Status LEXY PERALES 04/16/2023 13:32:55 Final Normal: <150 mg/ g creatinine
High: 150-500 mg/g creatinine
Very High: >500 mg/g creatinine
Nephrotic: >3000 mg/g creatinine Observation Date Value Abnormality Reference (Units ) Status Protein/Creatinine [Ratio] in Urine 04/16/2023 13:32:55 75 <150 (mg/g ) Final Protein, Urine 04/16/2023 13:32:55 15 (mg/dL) Final Creatinine, Urine 04/16/2023 13:32:55 201 (mg/dL) Final Performing Location [facility] [place] [facility] [address] [place] [address]
--- OUTSIDE RECORDS SUMMARY | 2023-05-27 07:50 | External Medical Summary | Summary of Care ---
Author Name Unknown Organization [facility] Address [address] [place] [address] Phone [phone] Care Team Providers Care Manager Track Name Role Phone Rebecca Gardenia Palacio DO Primary Care Provider Reason for Visit * Reason Comments Non Stress Test Encounter Details Date Type Department Care Team (Late st Contact Info) Description 04/16/2023 1:00 PM EST Office Visit Gynecology/Obstetric s [facility] [address] [facility] [place] [address] Ilene Anderson CRNP [address] [facility] [place] [address] Ramsey Non Stress Tests An[facility] [address] [place] [address] Supervision of high risk in third trimester*; Obesity in , antepartum; Recurrent loss, currently ; Chronic hypertension in Allergies No known active allergiesdocumented as of this encounter (statuses as of 04/16/2023) Medications Medication Sig Dispensed Refills Start Date End Date Status 19 29-1 MG Oral Tablet Chewable Take by mouth . 0 Active Labetalol HCl 200 MG Oral Tablet (Normodyne)Indication s:HTN, goal below 140/90 Take 1 Tablet by mouth in the morning and 1 Tablet before bedtime. 60 Tablet 11 05/07/2022 Active Doxylamine Succinate (Sleep) 25 MG Oral Tablet Take 1 Tablet by mouth at bedtime as needed. 0 Active Aspirin 81 MG Oral Capsule Take by mouth. 0 Active documented as of this encounter (statuses as of 04/16/2023) Active Problems Problem Noted Date Diagnosed Date [...] assessment of proteinuria (24-hour urine protein or bncxcaw-wy-yfbflxrdau ratio) and CBC, serum AST/ALT/creatinine. If patient [...] assessment of proteinuria (24-hour urine protein or hrnxtxw-kh-sscxadlgqx ratio) and CBC, serum AST/ALT/creatinine. If patient [...] as of this encounter (statuses as of 04/16/2023) Resolved Problems Problem Noted Date Diagnosed Date [...] as of this encounter (statuses as of 04/16/2023) Immunizations Name Administration Dates Next Due COVID-19 mRNA, LNP-s, No Pre serve, 2-Dose Series ([employer]) 07/01/2020,06/09/2020 COVID-19, LNP-s, No Preserve , Manny-sucrose, [...] money to get more. Never true 01/10/2023 [place] Depression Scale Answer Date Recorded [place] Depression Scale Total 3 03/26/2023 The thought [...] Sign Reading Time Taken Comments Blood Pressure 140/80 04/16/2023 12:57 PM EST Pulse - - Temperature - - Respiratory Rate - - Oxygen Saturation - - Inhaled Oxygen Concentration - - Weight 129.2 kg (284 lb 12.8 oz) 2023 12:57 PM EST Height - - Body Mass Index 38.63 04/08/2023 1:00 PM EST documented in this encounter Progress Notes * Ilene Anderson CRNP - 04/16/2023 1:16 PM EST ASSESSMENT assessment with Non-stress Test completed on 04/16/2023 at 33.1 weeks gestation for indication of chronic hypertension heart baseline: 130 bpm Variability: Moderate Decelerations: absent Accelerations: present Contractions: None NST start time: 1258 NST stop time: 1323 NST strip reviewed, interpreted, and approved by OB provider, MEHDI Comer. NST strip stored in clinic storage file +1 proteinuria, no symptoms of preE. BP stable. Will send urine for P/C ratio. documented in this encounter Nursing Notes * Jacinta Mccrary LPN - 04/16/2023 1:17 PM EST 33w1d Denies vaginal bleeding/rom + movement Denies CALLAHAN/vision changes Taking labetalol as prescribed Labor instructions given today documented in this encounter Plan of Treatment Upcoming Encounters Date Type Department Care Team (Late st Contact Info) Description 04/23/2023 1:00 PM EST Office Visit Gynecology/Obstetrics [facility] Mustafa [address] [place] [address] Ilene Anderson CRNP [address] [place] [address] Ramsey Non Stress Tests Aneta [address] [place] [address] 04/30/2023 1:00 PM EST Office Visit Gynecology/Obstetrics Goldie Mustafa [address] [place] [address] Ilene Anderson CRNP [address] [place] [address] Mustafa, Non Stress Tests Aneta [address] [place] [address] 05/01/2023 9:30 AM EST Imaging Maternal Medicine Imaging, Aneta Mustafa [address] [place] [phone] 05/07/2023 2:30 PM EST Office Visit Gynecology/Obstetrics [facility] Mustafa [address] [place] [address] Devon Sparks MD [address] [place] [address] Ramsey, Non Stress Tests Aneta [address] [place] [address] 05/14/2023 2:30 PM EST Office Visit Gynecology/Obstetrics [facility] [address] [place] [address] Madisyn Marino CRNP [address] [place] [address] Mustafa, Non Stress Tests Aneta [address] [place] [address] 05/21/2023 2:30 PM EDT Office Visit Gynecology/Obstetrics [facility] [address] [place] [address] Lenka Haley MD [address] [place] [address] [place] [address] Mustafa, Non Stress Tests Aneta [address] [place] [address] 05/28/2023 1:00 PM EDT Office Visit Gynecology/Obstetrics Goldie Mustafa [address] [place], [place] [address] Ilene Anderson CRNP [address] [place], [place] [address] Ramsey, Non Stress Tests Aneta [address] [place] [address] 06/02/2023 1:00 PM EDT Office Visit Gynecology/Obstetrics Goldie Mustafa [address] [place] [address] Ilene Anderson CRNP [address] [place], [place] [address] aRmsey Non Stress Tests Aneta [address] [place] [address] Pending Results Name Type Priority Associated Diagnoses Date /Time PROTEIN/ CREATININE RATIO, URINE Lab Routine Supervision of high risk in third trimester Chronic hypertension in 04/16/2023 1:32 PM EST Health Maintenance Due Date Last Done Comments Depression Screening 10/05/2022 10/05/2021 COVID-19 Vaccine ( season) 2022 01/29/2021, 07/01/2020, 06/09/2020 GFR 11/01/2023 [...] Comments URINALYSIS, POINT OF CARE (ENTER/EDIT) Routine 04/16/2023 Supervision of high risk in third trimester Chronic hypertension in documented in this encounter Results * URINALYSIS, POINT OF CARE (ENTER/EDIT) (04/16/2023) Color, Urine Yellow Yellow or Light Yellow Clarity, Urine Clear Clear Glucose, Urine Negative Negative mg/dL Bilirubin, Urine Negative Negative Ketone, Urine Trace Negative mg/dL Specific [place], Urine 1.025 1.003 - 1.030 Blood, Urine Negative Negative pH, Urine 7.5 5.0 - 7.5 units Protein, Urine 30 Negative mg/dL Urobilinogen, Urine 1.0 0.2 - 1.0 mg/dL Nitrite, Urine Negative Negative Esterase, Urine Negative Negative Urine 04/16/2023 Ilene [facility] POINT O F CARE TEST ENTER/EDIT ORDERABLES documented in this encounter Visit Diagnoses Diagnosis Supervision of high risk in third trimester- Primary Unspecified high-risk Obesity in , antepartum Obesity complicating , childbirth, or the puerperium, antepartum condition or complication Recurrent loss, currently Recurrent loss, unspecified as to episode of care or not applicable Chronic hypertension in Benign essential hypertension complicating , childbirth, and the puerperium, unspecified as to episode of care documented in this encounter Care Teams Manager Track Relationship Specialty Start Date End Date Gardenia Fernandez DO [address] [place] [address] PCP - General Family Medicine 12/24/11 documented as of this encounter
--- OUTSIDE RECORDS SUMMARY | 2023-05-27 07:50 | External Medical Summary | Summary of Care ---
Author Name Unknown Organization [facility] Address [address] [place] [address] Phone [phone] Care Team Providers Care Small Business Representative Name Role Phone Rebecca Gardenia Palacio DO Primary Care Provider Reason for Visit * Reason Comments Non Stress Test Encounter Details Date Type Department Care Team (Late st Contact Info) Description 04/30/2023 1:00 PM EST Office Visit Gynecology/Obstetric s [facility] [address] [facility] [place] [address] Ilene Anderson CRNP [address] [facility] [place] [address] Ramsey Non Stress Tests Aneta [address] [place] [address] Supervision of high risk in third trimester*; Obesity in , antepartum; Recurrent loss, currently ; Chronic hypertension in Allergies No known active allergiesdocumented as of this encounter (statuses as of 04/30/2023) Medications Medication Sig Dispensed Refills Start Date [...] as of this encounter (statuses as of 04/30/2023) Active Problems Problem Noted Date Diagnosed Date [...] assessment of proteinuria (24-hour urine protein or ihouykb-ee-wsrnxxciby ratio) and CBC, serum AST/ALT/creatinine. If patient [...] assessment of proteinuria (24-hour urine protein or tpylpfi-gr-pmkxiwtyyd ratio) and CBC, serum AST/ALT/creatinine. If patient [...] as of this encounter (statuses as of 04/30/2023) Resolved Problems Problem Noted Date Diagnosed Date [...] as of this encounter (statuses as of 04/30/2023) Immunizations Name Administration Dates Next Due COVID-19 mRNA, LNP-s, No Pre serve, 2-Dose Series ([employer]) 07/01/2020,06/09/2020 COVID-19, LNP-s, No Preserve , Manny-sucrose, [...] money to get more. Never true 01/10/2023 [place] Depression Scale Answer Date Recorded [place] Depression Scale Total 3 03/26/2023 The thought [...] Sign Reading Time Taken Comments Blood Pressure 118/68 04/30/2023 12:43 PM EST Pulse - - Temperature - - Respiratory Rate - - Oxygen Saturation - - Inhaled Oxygen Concentration - - Weight 131.4 kg (289 lb 9.6 oz) 024 12:43 PM EST Height - - Body Mass Index 39.28 04/08/2023 1:00 PM EST documented in this encounter Progress Notes * Ilene Anderson CRNP - 04/30/2023 12:45 PM EST ASSESSMENT assessment with Non-stress Test completed on 04/30/2023 at 35.1 weeks gestation for indicationof chronic hypertension heart baseline: 140 bpm Variability: Moderate Decelerations: absent Accelerations: present Contractions: None NST start time: 1242 NST stop time: 1313 NST strip reviewed, interpreted, and approved by OB provider, MEHDI Comer . NST strip stored in clinic storage file Discussed delivery recommendations per MFM, pt agreeable to 39 wk induction. Aware sooner delivery may be advised if BP becomes unstable or other concerns arise. documented in this encounter Plan of Treatment Upcoming Encounters Date Type Department Care Team (Late st Contact Info) Description 05/01/2023 9:30 AM EST Imaging Maternal Medicine Imaging, Aneta [address] [place] [phone] 05/01/2023 9:30 AM EST Office Visit Mica Plate Layer Obstetrics Maternal Medicine, Aneta Mustafa [address] [place] [address] Meeta Pimentel, DO [address] [place] [address] 05/07/2023 2:30 PM EST Office Visit Gynecology/Obstetrics Goldie Mustafa [address] [place] [address] Devon Sparks MD [address] [place] [address] Kiki Mustafa Stress Tests Aneta [address] [place] [address] 05/14/2023 2:30 PM EST Office Visit Gynecology/Obstetrics Goldie Mustafa [address] [place] [address] Madisyn Marino CRNP [address] [place] [address] Ramsey, Non Stress Tests Aneta [address] [place] [address] 05/21/2023 2:30 PM EDT Office Visit Gynecology/Obstetrics Goldie Mustafa [address] [place] [address] Lenka Haley MD [address] [place] [address] [place] [address] Ramsey Non Stress Tests Aneta [address] [place] [address] 05/28/2023 1:00 PM EDT Office Visit Gynecology/Obstetrics Goldie Mustafa [address] [place] [address] Ilene Anderson CRNP [address] [place] [address] Ramsey Non Stress Tests Aneta [address] [place] [address] 06/02/2023 1:00 PM EDT Office Visit Gynecology/Obstetrics Goldie Mustafa [address] [place] [address] Ilene Anderson CRNP [address] [place] [address] Ramsey Non Stress Tests Aneta [address] [place] [address] Health Maintenance Due Date Last Done Comments Depression Screening 10/05/2022 10/05/2021 COVID-19 Vaccine (4 - season) 2022 01/29/2021, 07/01/2020, 06/09/2020 GFR [...] Comments URINALYSIS, POINT OF CARE (ENTER/EDIT) Routine 04/30/2023 Supervision of high risk in third trimester Chronic hypertension in documented in this encounter Results * URINALYSIS, POINT OF CARE (ENTER/EDIT) (04/30/2023) Color, Urine Yellow Yellow or Light Yellow Clarity, Urine Clear Clear Glucose, Urine Negative Negative mg/dL Bilirubin, Urine Negative Negative Ketone, Urine Negative Negative mg/dL Specific [place], Urine 1.025 1.003 - 1.030 Blood, Urine Trace-intact Negative pH, Urine 7.5 5.0 - 7.5 units Protein, Urine Negative Negative mg/dL Urobilinogen, Urine 0.2 0.2 - 1.0 mg/dL Nitrite, Urine Negative Negative Esterase, Urine Negative Negative Urine 04/30/2023 Ilene Sadler Backer [facility] POINT O F CARE TEST ENTER/EDIT [...] care documented in this encounter Care Teams Small Business Representative Relationship Specialty Start Date End Date Gardenia Fernandez DO [facility] [place] [address] [place] [address] PCP - General Family Medicine 12/24/11 documented as of this encounter
--- OUTSIDE RECORDS SUMMARY | 2023-05-27 07:50 | External Medical Summary | Summary of Care ---
Author Name Unknown Organization [facility] Address [address] [place] [address] Phone [phone] Care Team Providers Care Cool Roofing Installer Name Role Phone Rebecca Gardenia Palacio DO Primary Care Provider Reason for Visit * Reason Comments Non Stress Test Encounter Details Date Type Department Care Team (Late st Contact Info) Description 04/16/2023 1:00 PM EST Office Visit Gynecology/Obstetric s [facility] [address] [facility] [place] [address] Ilene Anderson CRNP [address] [facility] [place] [address] Ramsey Non Stress Tests Aneta [address] [place] [address] Supervision of high risk in third trimester*; [...] assessment of proteinuria (24-hour urine protein or quhskbx-zt-akwmjzrdoj ratio) and CBC, serum AST/ALT/creatinine. If patient [...] assessment of proteinuria (24-hour urine protein or mcqvlhq-rx-ubweygtxvm ratio) and CBC, serum AST/ALT/creatinine. If patient [...] mRNA, LNP-s, No Pre serve, 2-Dose Series ([employer]) 07/01/2020,06/09/2020 COVID-19, LNP-s, No Preserve , Manny-sucrose, [...] money to get more. Never true 01/10/2023 [place] Depression Scale Answer Date Recorded [place] Depression Scale Total 3 03/26/2023 The thought [...] Mustafa [address] [place] [address] Ilene Anderson CRNP [address] [place] [address] Ramsey Non Stress Tests Aneta [address] [place] [address] 04/30/2023 1:00 PM EST Office Visit Gynecology/Obstetrics Goldie Mustafa [address] [place] [address] Ilene Anderson CRNP [address] [place] [address] Mustafa, Non Stress Tests Aneta [address] [place] [address] 05/01/2023 9:30 AM EST Imaging Maternal Medicine Imaging, Aneta Mustafa [address] [place] [phone] 05/07/2023 2:30 PM EST Office Visit Gynecology/Obstetrics [facility] Mustafa [address] [place] [address] Devon Sparks MD [address] [place] [address] Ramsey, Non Stress Tests Aneta [address] [place] [address] 05/14/2023 2:30 PM EST Office Visit Gynecology/Obstetrics [facility] [address] [place] [address] Madisyn Marino CRNP [address] [place] [address] Mustafa, Non Stress Tests Aneta [address] [place] [address] 05/21/2023 2:30 PM EDT Office Visit Gynecology/Obstetrics [facility] [address] [place] [address] Lenka Haley MD [address] [place] [address] [place] [address] Mustafa, Non Stress Tests Aneta [address] [place] [address] 05/28/2023 1:00 PM EDT Office Visit Gynecology/Obstetrics Goldie Mustafa [address] [place], [place] [address] Ilene Anderson CRNP [address] [place], [place] [address] Ramsey, Non Stress Tests Aneta [address] [place] [address] 06/02/2023 1:00 PM EDT Office Visit Gynecology/Obstetrics Goldie Mustafa [address] [place] [address] Ilene Anderson CRNP [address] [place], [place] [address] Ramsey Non Stress Tests Aneta [address] [place] [address] Pending Results Name Type Priority Associated Diagnoses [...] Negative Ketone, Urine Trace Negative mg/dL Specific [place], Urine 1.025 1.003 - 1.030 Blood, Urine [...] care documented in this encounter Care Teams Cool Roofing Installer Relationship Specialty Start Date End Date Gardenia Fernandez DO [address] [place] [address] PCP - General Family Medicine 12/24/11 documented as of this encounter
--- OUTSIDE RECORDS SUMMARY | 2023-05-27 07:50 | External Medical Summary | Summary of Care ---
Author Name Unknown Organization [facility] Address [address] [place] [address] Phone [phone] Care Team Providers Care Engineer Fishing Vessel Name Role Phone Rebecca Gardenia Palacio DO Primary Care Provider Reason for Visit * Reason Comments Non Stress Test Encounter Details Date Type Department Care Team (Late st Contact Info) Description 04/23/2023 1:00 PM EST Office Visit Gynecology/Obstetric s [facility] [address] [facility] [place] [address] Ilene Anderson CRNP [address] [place] [address] Ramsey Non Stress Tests Aneta [address] [place] [address] Supervision of high risk in third trimester*; Obesity in , antepartum; Recurrent loss, currently ; Chronic hypertension in Allergies No known active allergiesdocumented as of this encounter (statuses as of 04/23/2023) Medications Medication Sig Dispensed Refills Start Date [...] as of this encounter (statuses as of 04/23/2023) Active Problems Problem Noted Date Diagnosed Date [...] assessment of proteinuria (24-hour urine protein or dpistmk-ze-panlvluswo ratio) and CBC, serum AST/ALT/creatinine. If patient [...] assessment of proteinuria (24-hour urine protein or crxffof-xc-haplydsula ratio) and CBC, serum AST/ALT/creatinine. If patient [...] as of this encounter (statuses as of 04/23/2023) Resolved Problems Problem Noted Date Diagnosed Date [...] as of this encounter (statuses as of 04/23/2023) Immunizations Name Administration Dates Next Due COVID-19 mRNA, LNP-s, No Pre serve, 2-Dose Series ([employer]) 07/01/2020,06/09/2020 COVID-19, LNP-s, No Preserve , Manny-sucrose, [...] money to get more. Never true 01/10/2023 [place] Depression Scale Answer Date Recorded [place] Depression Scale Total 3 03/26/2023 The thought [...] Sign Reading Time Taken Comments Blood Pressure 118/70 04/23/2023 12:49 PM EST Pulse - - Temperature - - Respiratory Rate - - Oxygen Saturation - - Inhaled Oxygen Concentration - - Weight 129.3 kg (285 lb) 04/23/2023 12:49 PM EST Height - - Body Mass Index 38.65 04/08/2023 1:00 PM EST documented in this encounter Progress Notes * Ilene Anderson CRNP - 04/23/2023 12:53 PM EST 34w1d Baby is moving well. No regular ctx, occasional BH. No leaking/bleeding. Reviewed labor instructions. She has a growth ultrasound scheduled with [facility] next week. ASSESSMENT assessment with Non-stress Test completed on 04/23/2023 at 34.1 weeks gestation for indicationof chronic hypertension heart baseline: 140 bpm Variability: Moderate Decelerations: absent Accelerations: present Contractions: None NST start time: 1251 NST stop time: 1315 NST strip reviewed, interpreted, and approved by OB provider, MEHDI Comer. NST strip stored in clinic storage file documented in this encounter Plan of Treatment Upcoming Encounters Date Type Department Care Team (Late st Contact Info) Description 04/30/2023 1:00 PM EST Office Visit Gynecology/Obstetrics Goldie Mustafa [address] [place] [address] Ilene Anderson CRNP [address] [place] [address] Ramsey, Non Stress Tests Aneta [address] [place] [address] 05/01/2023 9:30 AM EST Imaging Maternal Medicine Imaging, Aneta Mustafa [address] [place] [phone] 05/07/2023 2:30 PM EST Office Visit Gynecology/Obstetrics Goldie Mustafa [address] [place] [address] Devon Sparks MD [address] [place] [address] Mustafa, Non Stress Tests Aneta [address] [place] [address] 05/14/2023 2:30 PM EST Office Visit Gynecology/Obstetrics Goldie Mustafa [address] [place] [address] Madisyn Marino CRNP [address] [place] [address] Ramsey Non Stress Tests Aneta [address] [place] [address] 05/21/2023 2:30 PM EDT Office Visit Gynecology/Obstetrics Goldie Mustafa [address] [place] [address] Lenka Haley MD [address] [place] [address] [place] [address] Kiki Mustafa Stress Tests Aneta [address] [place] [address] 05/28/2023 1:00 PM EDT Office Visit Gynecology/Obstetrics Goldie Mustafa [address] [place] [address] Ilene Anderson CRNP [address] [place] [address] Kiki Mustafa Stress Tests Aneta [address] [place] [address] 06/02/2023 1:00 PM EDT Office Visit Gynecology/Obstetrics Goldie Mustafa [address] [place] [address] BackerIlene CRNP [address] [place] [address] Ramsey Non Stress Tests Aneta [address] [place] [address] Health Maintenance Due Date Last Done Comments [...] Comments URINALYSIS, POINT OF CARE (ENTER/EDIT) Routine 04/23/2023 Supervision of high risk in third trimester Chronic hypertension in documented in this encounter Results * URINALYSIS, POINT OF CARE (ENTER/EDIT) (04/23/2023) Color, Urine Yellow Yellow or Light Yellow Clarity, Urine Clear Clear Glucose, Urine Negative Negative mg/dL Bilirubin, Urine Negative Negative Ketone, Urine Negative Negative mg/dL Specific [place], Urine 1.030 1.003 - 1.030 Blood, Urine Negative Negative pH, Urine 7.0 5.0 - 7.5 units Protein, Urine Trace Negative mg/dL Urobilinogen, Urine 0.2 0.2 - 1.0 mg/dL Nitrite, Urine Negative Negative Esterase, Urine Negative Negative Urine 04/23/2023 Ilene [facility] POINT O F CARE [...] care documented in this encounter Care Teams Engineer Fishing Vessel Relationship Specialty Start Date End Date Gardenia Fernandez DO [facility] [place] [address] [place] [address] PCP - General Family Medicine 12/24/11 documented as of this encounter
--- OUTSIDE RECORDS SUMMARY | 2023-05-27 07:50 | External Medical Summary | Summary of Care ---
Author Name Unknown Organization [facility] Address [address] [place] [address] Phone [phone] Care Team Providers Care Top Dyeing Machine Tender Name Role Phone Rebecca Gardenia Palacio DO Primary Care Provider Reason for Visit * Reason Comments Non Stress Test Encounter Details Date Type Department Care Team (Late st Contact Info) Description 04/30/2023 1:00 PM EST Office Visit Gynecology/Obstetric s [facility] [address] [facility] [place] [address] Ilene Anderson CRNP [address] [facility] [place] [address] Ramsey Non Stress Tests Aneta [address] [place] [address] Supervision of high risk in third trimester*; [...] assessment of proteinuria (24-hour urine protein or fbropgt-fz-qckmzbgxxr ratio) and CBC, serum AST/ALT/creatinine. If patient [...] assessment of proteinuria (24-hour urine protein or fgzzebs-xn-lewysccomb ratio) and CBC, serum AST/ALT/creatinine. If patient [...] mRNA, LNP-s, No Pre serve, 2-Dose Series ([employer]) 07/01/2020,06/09/2020 COVID-19, LNP-s, No Preserve , Manny-sucrose, [...] money to get more. Never true 01/10/2023 [place] Depression Scale Answer Date Recorded [place] Depression Scale Total 3 03/26/2023 The thought [...] Medicine Imaging, Aneta [address] [place] [id number] 05/01/2023 9:30 AM EST Office Visit Communication Lecturer Obstetrics Maternal Medicine, Aneta Mustafa [address] [place] [address] Meeta Pimentel, DO [address] [place] [address] 05/07/2023 2:30 PM EST Office Visit Gynecology/Obstetrics Goldie Mustafa [address] [place] [address] Devon Sparks MD [address] [place] [address] Kiki Mustafa Stress Tests Aneta [address] [place] [address] 05/14/2023 2:30 PM EST Office Visit Gynecology/Obstetrics Goldie Mustafa [address] [place] [address] Madisyn Marino CRNP [address] [place] [address] Ramsey, Non Stress Tests Aneta [address] [place] [address] 05/21/2023 2:30 PM EDT Office Visit Gynecology/Obstetrics Goldie Mustafa [address] [place] [address] Lenka Haley MD [address] [place] [address] [place] [address] Ramsey Non Stress Tests Aneta [address] [place] [address] 05/28/2023 1:00 PM EDT Office Visit Gynecology/Obstetrics Goldie Mustafa [address] [place] [address] Ilene Anderson CRNP [address] [place] [address] Ramsey Non Stress Tests Aneta [address] [place] [address] 06/02/2023 1:00 PM EDT Office Visit Gynecology/Obstetrics Goldie Mustafa [address] [place] [address] Ilene Anderson CRNP [address] [place] [address] Ramsey Non Stress Tests Aneta [address] [place] [address] Health Maintenance Due Date Last Done Comments [...] Negative Ketone, Urine Negative Negative mg/dL Specific [place], Urine 1.025 1.003 - 1.030 Blood, Urine [...] care documented in this encounter Care Teams Top Dyeing Machine Tender Relationship Specialty Start Date End Date Gardenia Fernandez DO [facility] [place] [address] PCP - General Family Medicine 12/24/11 documented as of this encounter
--- OUTSIDE RECORDS SUMMARY | 2023-05-27 07:50 | External Medical Summary | Summary of Care ---
Author Name Unknown Organization [facility] Address [address] [place] [address] Phone [phone] Care Team Providers Care Maintenance Assistant Name Role Phone Rebecca Varnermaia Palacio Primary Care Provider Encounter Details Date Type Department Care Team (Late st Contact Info) Description 05/01/2023 9:30 AM EST Office Visit Staying Machine Operator Obstetrics Maternal Medicine, [address] [place] [address] Meeta Pimentel DO [address] [place] [address] Chronic hypertension in *; Obesity in , antepartum; Ultrasound for screening for growth restriction; 35 weeks gestation of Allergies No known active allergiesdocumented as of this encounter (statuses as of 05/01/2023) Medications Medication Sig Dispensed Refills Start Date [...] as of this encounter (statuses as of 05/01/2023) Active Problems Problem Noted Date Diagnosed Date [...] assessment of proteinuria (24-hour urine protein or fjzkxfi-lc-cquirbndyz ratio) and CBC, serum AST/ALT/creatinine. If patient [...] assessment of proteinuria (24-hour urine protein or lpvyexk-ol-krjlqhmxqs ratio) and CBC, serum AST/ALT/creatinine. If patient [...] as of this encounter (statuses as of 05/01/2023) Resolved Problems Problem Noted Date Diagnosed Date [...] as of this encounter (statuses as of 05/01/2023) Immunizations Name Administration Dates Next Due COVID-19 mRNA, LNP-s, No Pre serve, 2-Dose Series ([employer]) 07/01/2020,06/09/2020 COVID-19, LNP-s, No Preserve , Manny-sucrose, [...] money to get more. Never true 01/10/2023 [place] Depression Scale Answer Date Recorded [place] Depression Scale Total 3 03/26/2023 The thought [...] on file documented as of this encounter Progress Notes * Meeta Pimentel, DO - 05/01/2023 10:42 AM EST Fernanda presented today at 35w2d for an ultrasound for the following indications: Chronic hypertension in Obesity in , antepartum Ultrasound for screening for growth restriction 35 weeks gestation of Ultrasound summary: Patient presented at 35w 2d for growth assessment. Normal growth with EFW 2436 g at 27%ile. Normal SUE at 9.6 cm. Cephalic presentation. I reviewed the ultrasound images. Fernanda was given the opportunity to meet with me if she had any questions. Please refer to the ultrasound report for additional details about today's ultrasound examination. RECOMMENDATIONS: Follow up with MFM for ultrasound as clinically indicated. Weekly NSTs. See prior formal MFM consultation note. Thank you for allowing us to participate in the care of this patient. Please call with any questions. Meeta Pimentel DO 05/01/2023 10:42 AM documented in this encounter Plan of Treatment Upcoming Encounters Date Type Department Care Team (Late st Contact Info) Description 05/07/2023 2:30 PM EST Office Visit Gynecology/Obstetrics [facility] [address] [place] [address] Devon Sparks MD [address] [place] [address] Ramsey Non Stress Tests Aneta [address] [place] [address] 05/14/2023 2:30 PM EST Office Visit Gynecology/Obstetrics [facility] [address] [place] [address] Madisyn Marino CRNP [address] [place] [address] Ramsey Non Stress Tests Aneta [address] [place] [address] 05/21/2023 2:30 PM EDT Office Visit Gynecology/Obstetrics [facility] [address] [place] [address] Lenka Haley MD [address] [place] [address] [place] [address] Ramsey, Non Stress Tests Aneta [address] [place] [address] 05/28/2023 1:00 PM EDT Office Visit Gynecology/Obstetrics Goldie Mustafa [address] [place] [address] Ilene Anderson CRNP [address] [place] [address] Kiki Mustafa Stress Tests Aneta [address] [place] [address] 06/02/2023 1:00 PM EDT Office Visit Gynecology/Obstetrics Goldie Mustafa [address] [place] [address] Ilene Anderson CRNP [address] [place] [address] Kiki Mustafa Stress Tests Aneta [address] [place] [address] Health Maintenance Due Date Last Done Comments Depression Screening 10/05/2022 10/05/2021 COVID-19 Vaccine ( - 2022- season) 2022 01/29/2021, 07/01/2020, 06/09/2020 [...] as of this encounter Visit Diagnoses Diagnosis Chronic hypertension in - Primary Benign essential hypertension complicating , childbirth, and the puerperium, unspecified as to episode of care Obesity in , antepartum Obesity complicating , childbirth, or the puerperium, antepartum condition or complication Ultrasound for screening for growth restriction screening for growth retardation using ultrasonics 35 weeks gestation of state, incidental documented in this encounter Care Teams Maintenance Assistant Relationship Specialty Start Date End Date Gardenia Fernandez DO [address] [place] [address] PCP - General Family Medicine 12/24/11 documented as of this encounter
--- OUTSIDE RECORDS SUMMARY | 2023-05-27 07:50 | External Medical Summary | Summary of Care ---
Author Name Unknown Organization [facility] Address [address] [place] [address] Phone [phone] Care Team Providers Care Configurator Name Role Phone Rebecca Gardenia Palacio DO Primary Care Provider Reason for Visit * Reason Comments Return Visit Encounter Details Date Type Department Care Team (Late st Contact Info) Description 05/14/2023 2:30 PM EST Office Visit Gynecology/Obstetric s [facility]afa [address] [facility] [place] [address] Madisyn Marino CRNP [address] [place] [address] Ramsey Non Stress Tests Aneta [address] [facility] [place] [address] Supervision of high risk in third trimester*; Obesity in , antepartum; Recurrent loss, currently ; Chronic hypertension in Allergies No known active allergiesdocumented as of this encounter (statuses as of 05/14/2023) Medications Medication Sig Dispensed Refills Start Date [...] as of this encounter (statuses as of 05/14/2023) Active Problems Problem Noted Date Diagnosed Date [...] assessment of proteinuria (24-hour urine protein or mjdoovs-go-xqonxdzrce ratio) and CBC, serum AST/ALT/creatinine. If patient [...] 128/70 05/07/22 128/80 02/08/22 140/78 11/27/21 124/76 08/18/22 128/82 10/05/21 138/72 09/05/21 140/82 06/12/21 140/82 Last Assessment & Plan: Considerations: Women with chronic hypertension during are at significantly increased risk for morbidity. Signs and symptoms of superimposed pre-eclampsia were reviewed; instructed patient to contact primary OB care provider if these symptoms occur. Recommendations: Obtain baseline lab work JERICA (if not already done) with assessment of proteinuria (24-hour urine protein or gefikdz-tz-fbyxtywbtg ratio) and CBC, serum AST/ALT/creatinine. If patient [...] as of this encounter (statuses as of 05/14/2023) Resolved Problems Problem Noted Date Diagnosed Date [...] as of this encounter (statuses as of 05/14/2023) Immunizations Name Administration Dates Next Due COVID-19 mRNA, LNP-s, No Pre serve, 2-Dose Series ([employer]) 07/01/2020,06/09/2020 COVID-19, LNP-s, No Preserve , Manny-sucrose, [...] money to get more. Never true 01/10/2023 Strong Depression Scale Answer Date Recorded Strong Depression Scale Total 3 03/26/2023 The thought [...] Sign Reading Time Taken Comments Blood Pressure 124/72 05/14/2023 2:52 PM EST Pulse - - Temperature - - Respiratory Rate - - Oxygen Saturation - - Inhaled Oxygen Concentration - - Weight 132.5 kg (292 lb) 05/14/2023 2:52 PM EST Height 182.9 cm (6') 05/14/2023 2:52 PM EST Body Mass Index 39.6 05/14/2023 2:52 PM EST documented in this encounter Progress Notes * Madisyn Marino CRNP - 05/14/2023 3:15 PM EST 37w1d No concerns. Baby is active. No contractions or bleeding. IOL scheduled. ASSESSMENT assessment with Non-stress Test completed on 05/14/2023 at 37.1 weeks gestation for indication of chronic hypertension heart baseline: 140 bpm Variability: Moderate Decelerations: absent Accelerations: present Contractions: None NST start time: 1426 NST stop time: 1508 NST strip reviewed, interpreted, and approved by OB provider, MEHDI Heath . NST strip stored in clinic storage file documented in this encounter Plan of Treatment Upcoming Encounters Date Type Department Care Team (Late st Contact Info) Description 05/21/2023 2:30 PM EDT Office Visit Gynecology/Obstetrics Goldie Mustafa [address] [place] [address] Lenka Haley MD [address] [place] [address] [place] [address] Kiki Mustafa Stress Tests Aneta [address] [place] [address] 05/28/2023 1:00 PM EDT Office Visit Gynecology/Obstetrics Goldie Mustafa [address] [place] [address] Ilene Anderson CRNP [address] [place] [address] Ramsey Non Stress Tests Aneta [address] [place] [address] 06/02/2023 1:00 PM EDT Office Visit Gynecology/Obstetrics [facility] [address] [place] [address] Backer, Ilene Lambnett, LINER INSTALLER [address] [place] [address] Mustafa, Non Stress Tests Aneta [address] [place] [address] Health Maintenance Due Date Last Done Comments [...] as of this encounter Visit Diagnoses Diagnosis Supervision of [...] care documented in this encounter Care Teams Configurator Relationship Specialty Start Date End Date Gardenia Fernandez DO [address] [place] [address] PCP - General Family Medicine 12/24/11 documented as of this encounter
--- OUTSIDE RECORDS SUMMARY | 2023-05-27 07:50 | External Medical Summary | Summary of Care ---
Author Name Unknown Organization [facility] Address [address] [place] [address] Phone [phone] Care Team Providers Care Miller Helper Name Role Phone Rebecca Gardenia Palacio DO Primary Care Provider Reason for Visit * Reason Comments Return Visit Non Stress Test Encounter Details Date Type Department Care Team (Late st Contact Info) Description 05/21/2023 2:30 PM EDT Office Visit Gynecology/Obstetric s [facility]afa [address] [place] [address] Lenka Haley MD [address] [place], [place] [id number] Ramsey Non Stress Tests Aneta [address] [place] [address] 38 weeks gestation of *; Supervision of high risk in third trimester; Obesity in , antepartum; Chronic hypertension in ; Positive GBS test; Recurrent loss, currently Allergies No known active allergiesdocumented as of this encounter (statuses as of 05/21/2023) Medications Medication Sig Dispensed Refills Start Date [...] as of this encounter (statuses as of 05/21/2023) Active Problems Problem Noted Date Diagnosed Date [...] assessment of proteinuria (24-hour urine protein or aisussk-ji-rdcfyxasbi ratio) and CBC, serum AST/ALT/creatinine. If patient [...] assessment of proteinuria (24-hour urine protein or olethpt-um-fsosjoofeo ratio) and CBC, serum AST/ALT/creatinine. If patient [...] as of this encounter (statuses as of 05/21/2023) Resolved Problems Problem Noted Date Diagnosed Date [...] as of this encounter (statuses as of 05/21/2023) Immunizations Name Administration Dates Next Due COVID-19 mRNA, LNP-s, No Pre serve, 2-Dose Series ([employer]) 07/01/2020,06/09/2020 COVID-19, LNP-s, No Preserve , Manny-sucrose, [...] money to get more. Never true 01/10/2023 [place] Depression Scale Answer Date Recorded [place] Depression Scale Total 3 03/26/2023 The thought [...] kg/m | BSA 2.59 m Cx: 1-/-3 Bulb Weeder Documentation Provider requested fruit canner. Name of fruit canner: Regan Mccurdy LPN ASSESSMENT assessment with Non-stress [...] and preeclampsia warnings reviewed IOL 05/26 at [facility] RTC Lynsey Haley MD PhD documented in this encounter Nursing Notes * Nalini Murry LPN - 05/21/2023 2:41 PM EDT 38w1d NST, DECLAN Denies concerns. documented in this encounter Plan of Treatment Upcoming Encounters Date Type Department Care Team (Late st Contact Info) Description 05/28/2023 1:00 PM EDT Office Visit Gynecology/Obstetrics Goldie Mustafa [address] [place] [address] Ilene Anderson CRNP [address] [place] [address] Ramsey Non Stress Tests Aneta [address] [place] [address] 06/02/2023 1:00 PM EDT Office Visit Gynecology/Obstetrics Goldie Mustafa [address] [place] [address] Ilene Anderson CRNP [address] [place] [address] Kiki Mustafa Stress Tests Aneta [address] [place] [address] Health Maintenance Due Date Last Done Comments [...] as of this encounter Visit Diagnoses Diagnosis 38 weeks [...] applicable documented in this encounter Care Teams Miller Helper Relationship Specialty Start Date End Date Gardenia Fernandez DO [address] [place] [address] PCP - General Family Medicine 12/24/11 documented as of this encounter"
--- OUTSIDE RECORDS SUMMARY | 2023-05-27 07:50 | External Medical Summary | Summary of Care ---
Author Name Unknown Organization [facility] Address [address] [place] [address] Phone [phone] Care Team Providers Care Certified Alcohol And Drug Counselor Name Role Phone Rebecca Gardenia Palacio DO Primary Care Provider Reason for Visit * Reason Comments Non Stress Test Encounter Details Date Type Department Care Team (Late st Contact Info) Description 04/16/2023 1:00 PM EST Office Visit Gynecology/Obstetric s [facility] [address] [facility] [place] [address] Ilene Anderson CRNP [address] [facility] [place] [address] Ramsey Non Stress Tests Aneta [address] [place] [address] Supervision of high risk in third trimester*; [...] assessment of proteinuria (24-hour urine protein or ycaejwq-gv-ufujwabkal ratio) and CBC, serum AST/ALT/creatinine. If patient [...] assessment of proteinuria (24-hour urine protein or srvmexr-qh-hcmzjxofyu ratio) and CBC, serum AST/ALT/creatinine. If patient [...] mRNA, LNP-s, No Pre serve, 2-Dose Series ([employer]) 07/01/2020,06/09/2020 COVID-19, LNP-s, No Preserve , Manny-sucrose, [...] money to get more. Never true 01/10/2023 [place] Depression Scale Answer Date Recorded [place] Depression Scale Total 3 03/26/2023 The thought [...] Sign Reading Time Taken Comments Blood Pressure - - Pulse - - Temperature - - Respiratory [...] Goldie Mustafa [address] [place] [address] Ilene Anderson CRNP [address] [place] [address] Ramsey Non Stress Tests Aneta [address] [place] [address] 04/30/2023 1:00 PM EST Office Visit Gynecology/Obstetrics Goldie Mustafa [address] [place] [address] Ilene Anderson CRNP [address] [place] [address] Mustafa, Non Stress Tests Aneta [address] [place] [address] 05/01/2023 9:30 AM EST Imaging Maternal Medicine Imaging, Aneta Mustafa [address] [place] [address] 05/07/2023 2:30 PM EST Office Visit Gynecology/Obstetrics [facility] Mustafa [address] [place] [address] Devon Sparks MD [address] [place] [address] Ramsey, Non Stress Tests Aneta [address] [place] [address] 05/14/2023 2:30 PM EST Office Visit Gynecology/Obstetrics Goldie Mustafa [address] [place] [address] Madisyn Marino CRNP [address] [place] [address] Ramsey, Non Stress Tests Aneta [address] [place] [address] 05/21/2023 2:30 PM EDT Office Visit Gynecology/Obstetrics Goldie Mustafa [address] [place] [address] Lenka Haley MD [address] [place] [address] [place] [address] Mustafa, Non Stress Tests Aneta [address] [place] [address] 05/28/2023 1:00 PM EDT Office Visit Gynecology/Obstetrics [facility] Mustafa [address] [place] [address] BackerIlene CRNP [address] [place] [address] Ramsey, Non Stress Tests Aneta [address] [place] [address] 06/02/2023 1:00 PM EDT Office Visit Gynecology/Obstetrics Goldie Mustafa [address] [place] [address] Bhaskarer, MEHDI Seals [address] [place] [address] Ramsey Non Stress Tests Aneta [address] [place] [address] Pending Results Name Type Priority Associated Diagnoses [...] Negative Ketone, Urine Trace Negative mg/dL Specific [place], Urine 1.025 1.003 - 1.030 Blood, Urine [...] care documented in this encounter Care Teams Certified Alcohol And Drug Counselor Relationship Specialty Start Date End Date Gardenia Fernandez DO [address] [place] [address] PCP - General Family Medicine 12/24/11 documented as of this encounter
--- OUTSIDE RECORDS SUMMARY | 2023-05-27 07:50 | External Medical Summary | Summary of Care ---
Author Name Unknown Organization [facility] Address [address] [place] [address] Phone [phone] Care Team Providers Care Felt Tipping Machine Tender Name Role Phone Rebecca Gardenia Palacio DO Primary Care Provider Reason for Visit * Reason Comments Return Visit Non Stress Test Encounter Details Date Type Department Care Team (Late st Contact Info) Description 05/21/2023 2:30 PM EDT Office Visit Gynecology/Obstetric s [facility] [address] [place] [address] Lenka Haley MD [address] [place], [place] [id number] Ramsey Non Stress Tests Aneta [address] [place] [address] 38 weeks gestation of *; Supervision of [...] assessment of proteinuria (24-hour urine protein or mcxbdcn-mw-khgbzialea ratio) and CBC, serum AST/ALT/creatinine. If patient [...] assessment of proteinuria (24-hour urine protein or shloard-hw-oleinaruhf ratio) and CBC, serum AST/ALT/creatinine. If patient [...] mRNA, LNP-s, No Pre serve, 2-Dose Series ([employer]) 07/01/2020,06/09/2020 COVID-19, LNP-s, No Preserve , Manny-sucrose, [...] money to get more. Never true 01/10/2023 [place] Depression Scale Answer Date Recorded [place] Depression Scale Total 3 03/26/2023 The thought [...] kg/m | BSA 2.59 m Cx: 1-/-3 Medicine Assistant Documentation Provider requested division head. Name of division head: Regan Mccurdy LPN ASSESSMENT assessment with Non-stress [...] and preeclampsia warnings reviewed IOL 05/26 at [facility] RTC Lynsey Haley MD PhD documented in this encounter Nursing Notes * Nalini Murry LPN - 05/21/2023 2:41 PM EDT 38w1d NST, DECLAN Denies concerns. documented in this encounter Plan of Treatment Upcoming Encounters Date Type Department Care Team (Late st Contact Info) Description 05/28/2023 1:00 PM EDT Office Visit Gynecology/Obstetrics Goldie Mustafa [address] [place] [address] Ilene Anderson CRNP [address] [place] [address] Ramsey Non Stress Tests Aneta [address] [place] [address] 06/02/2023 1:00 PM EDT Office Visit Gynecology/Obstetrics Goldie Mustafa [address] [place] [address] Ilene Anderson CRNP [address] [place] [address] Kiki Mustafa Stress Tests Aneta [address] [place] [address] Health Maintenance Due Date Last Done Comments [...] applicable documented in this encounter Care Teams Felt Tipping Machine Tender Relationship Specialty Start Date End Date Gardenia Fernandez DO [address] [place] [address] PCP - General Family Medicine 12/24/11 documented as of this encounter"
--- OUTSIDE RECORDS SUMMARY | 2023-05-27 07:50 | External Medical Summary | Summary of Care ---
Author Name Unknown Organization [facility] Address [address] [place] [address] Phone [phone] Care Team Providers Care Corrosion Control Fitter Name Role Phone RebeccaGardenia DO Primary Care Provider Reason for Visit * Reason Comments Return Visit Encounter Details Date Type Department Care Team (Late st Contact Info) Description 05/07/2023 2:30 PM EST Office Visit Gynecology/Obstetric s Ovidio[facility]adolph Mustafa [address] [facility] [place] [address] Devon Sparks MD [address] [facility] [place] [place] [address] Kiki Mustafa Stress Tests Aneta [address] [place] [address] Supervision of high risk in third trimester*; Obesity in , antepartum; Recurrent loss, currently ; Chronic hypertension in Allergies No known active allergiesdocumented as of this encounter (statuses as of 05/07/2023) Medications Medication Sig Dispensed Refills Start Date [...] as of this encounter (statuses as of 05/07/2023) Active Problems Problem Noted Date Diagnosed Date [...] assessment of proteinuria (24-hour urine protein or pvgtmuq-uk-rivkjofvso ratio) and CBC, serum AST/ALT/creatinine. If patient [...] assessment of proteinuria (24-hour urine protein or xwyfkwj-rl-vshvhujhhp ratio) and CBC, serum AST/ALT/creatinine. If patient [...] as of this encounter (statuses as of 05/07/2023) Resolved Problems Problem Noted Date Diagnosed Date [...] as of this encounter (statuses as of 05/07/2023) Immunizations Name Administration Dates Next Due COVID-19 mRNA, LNP-s, No Pre serve, 2-Dose Series ([employer]) 07/01/2020,06/09/2020 COVID-19, LNP-s, No Preserve , Manny-sucrose, [...] money to get more. Never true 01/10/2023 [place] Depression Scale Answer Date Recorded [place] Depression Scale Total 3 03/26/2023 The thought [...] Sign Reading Time Taken Comments Blood Pressure 134/78 05/07/2023 2:28 PM EST Pulse - - Temperature - - Respiratory Rate - - Oxygen Saturation - - Inhaled Oxygen Concentration - - Weight 131.5 kg (290 lb) 05/07/2023 2:28 PM EST Height 182.9 cm (6') 05/07/2023 2:28 PM EST Body Mass Index 39.33 05/07/2023 2:28 PM EST documented in this encounter Progress Notes * Devon Sparks MD - 05/07/2023 3:08 PM EST Pt doing well No complaints GBS done documented in this encounter Plan of Treatment Upcoming Encounters Date Type Department Care Team (Late st Contact Info) Description 05/14/2023 2:30 PM EST Office Visit Gynecology/Obstetrics [facility] Mustafa [address] [place] [address] Madisyn Marino CRNP [address] [place] [address] Mustafa, Non Stress Tests Aneta [address] [place] [address] 05/21/2023 2:30 PM EDT Office Visit Gynecology/Obstetrics [facility] [address] [place] [address] Lenka Haley MD [address] [place] [address] [place] [address] Mustafa, Non Stress Tests Aneta [address] [place] [address] 05/28/2023 1:00 PM EDT Office Visit Gynecology/Obstetrics [facility] [address] [place] [address] Ilene Anderson CRNP [address] [place] [address] Mustafa, Non Stress Tests Aneta [address] [place] [address] 06/02/2023 1:00 PM EDT Office Visit Gynecology/Obstetrics Goldie Mustafa [address] [place] [address] Ilene Anderson CRNP [address] [place] [address] Ramsey, Non Stress Tests Aneta [address] [place] [address] Pending Results Name Type Priority Associated Diagnoses Date /Time GROUP B STREP CULTURE/PCR Lab Routine Supervision of high risk in third trimester 05/07/2023 3:31 PM EST Scheduled Orders Name Type Priority Associated Diagnoses Orde r Schedule GROUP B STREP CULTURE/PCR Lab Routine Supervision of high risk in third trimester Expected: 05/07/2023, Expires: 05/07/2024 Health Maintenance Due Date Last Done Comments [...] care documented in this encounter Care Teams Corrosion Control Fitter Relationship Specialty Start Date End Date Gardenia Feranndez DO [address] [place] [address] PCP - General Family Medicine 12/24/11 documented as of this encounter
--- OUTSIDE RECORDS SUMMARY | 2023-05-27 07:50 | External Medical Summary | Summary of Care ---
Author Name Unknown Organization [facility] Address [address] [place] [address] Phone [phone] Care Team Providers Care Job Specification Writer Name Role Phone Rebecca Varnermaia Palacio Primary Care Provider Encounter Details Date Type Department Care Team (Late st Contact Info) Description 05/01/2023 9:30 AM EST Office Visit Test Borer Helper Obstetrics Maternal Medicine, [address] [place] [address] Meeta Pimentel DO [address] [place] [address] Chronic hypertension in *; Obesity [...] assessment of proteinuria (24-hour urine protein or fvirsvh-kr-ipfdaywsez ratio) and CBC, serum AST/ALT/creatinine. If patient [...] assessment of proteinuria (24-hour urine protein or kwyjieh-gg-jzadohpltz ratio) and CBC, serum AST/ALT/creatinine. If patient [...] mRNA, LNP-s, No Pre serve, 2-Dose Series ([employer]) 07/01/2020,06/09/2020 COVID-19, LNP-s, No Preserve , Manny-sucrose, [...] money to get more. Never true 01/10/2023 [place] Depression Scale Answer Date Recorded [place] Depression Scale Total 3 03/26/2023 The thought [...] Mustafa [address] [place] [address] Devon Sparks MD [address] [place] [address] Ramsey Non Stress Tests Aneta [address] [place] [address] 05/14/2023 2:30 PM EST Office Visit Gynecology/Obstetrics [facility] [address] [place] [address] Madisyn Marino CRNP [address] [place] [address] Ramsey Non Stress Tests Aneta [address] [place] [address] 05/21/2023 2:30 PM EDT Office Visit Gynecology/Obstetrics [facility] [address] [place] [address] Lenka Haley MD [address] [place] [address] [place] [address] Ramsey, Non Stress Tests Aneta [address] [place] [address] 05/28/2023 1:00 PM EDT Office Visit Gynecology/Obstetrics Goldie Mustafa [address] [place] [address] Ilene Anderson CRNP [address] [place] [address] Kiki Mustafa Stress Tests Aneta [address] [place] [address] 06/02/2023 1:00 PM EDT Office Visit Gynecology/Obstetrics Goldie Mustafa [address] [place] [address] Ilene Anderson CRNP [address] [place] [address] Kiki Mustafa Stress Tests Aneta [address] [place] [address] Health Maintenance Due Date Last Done Comments [...] incidental documented in this encounter Care Teams Job Specification Writer Relationship Specialty Start Date End Date Gardenia Fernandez DO [address] [place] [address] PCP - General Family Medicine 12/24/11 documented as of this encounter
--- OUTSIDE RECORDS SUMMARY | 2023-05-27 07:50 | External Medical Summary ---
Author Name Unknown Address Unknown Organization [id number]:LABORATORY [facility] [place] - [address] [place] [address] Laboratory Report Ordering Provider Test Date Status CRYSTAL RICK 05/07/2023 15:31:54 Final Observation Date Value Abnormality Reference (Units ) Status Streptococcus agalactiae DNA [Presence] in Specimen by JOVANNA with probe detection 05/07/2023 15:31:54 Positive Abnormal Negative Final Group B Streptococcus detect ed by culture-enhanced PCR (amplified probe).
The collection of vaginal/rectal swab specimen combinations (FDA approved specimen type) is optimal for the detection of Group B Streptococcus. Single source collection (vaginal only or rectal only) or alternate specimen sources may lead to false negative results. Performing Location LABORATORY [facility] [place] - [address] [place] [address]
--- OUTSIDE RECORDS SUMMARY | 2023-05-27 07:51 | External Medical Summary ---
Author Name Unknown Address Unknown Organization K01:[facility] [place] [address] [facility] [address] Laboratory Report Ordering Provider Test Date Status LEXY PERALES 03/12/2023 10:10:55 Final Observation Date Value Abnormality Reference (Units ) Status Treponema pallidum Ab [Presence] in Serum by Immunoassay 03/12/2023 10:10:55 Nonreactive Nonreactive Final No serologic evidence of syp hilis. No additional testing clinicially indicated at this time. Consider repeat testing in 2-4 weeks if acute or primary syphilis is suspected. Performing Location [facility] [place] [address] [place] [address]
--- OUTSIDE RECORDS SUMMARY | 2023-05-27 07:51 | External Medical Summary ---
Author Name Unknown Address Unknown Organization K0G:[facility] [place] [facility] - [address] [place] [address] Laboratory Report Ordering Provider Test Date Status ANGELLABACKER 03/12/2023 10:10:55 Final Observation Date Value Abnormality Reference (Units ) Status WBC, Total 03/12/2023 10:10:55 12.71 Above high normal 4 .00-10.80 (K/uL) Final RBC 03/12/2023 10:10:55 4.14 3.85-5.15 (M/uL) Final Hemoglobin 03/12/2023 10:10:55 12.9 12.0-15.3 (g/dL) Final Anemia reflex testing trigge rs on a HGB < 12.0 for Females and HGB < 13.0 for Males in accordance with the WHO Anemia Guidelines
Anemia reflex testing triggers on a HGB < 12.0 for Females and HGB < 13.0 for Males in accordance with the WHO Anemia Guidelines HCT 03/12/2023 10:10:55 37.8 36.0-45.2 (%) Final MCV 03/12/2023 10:10:55 91.3 81.5-97.5 (fL) Final MCH 03/12/2023 10:10:55 31.2 27.0-34.0 (pg) Final MCHC 03/12/2023 10:10:55 34.1 32.0-36.0 (g/dL) Final RDW 03/12/2023 10:10:55 13.0 11.5-15.5 (%) Final Platelets 03/12/2023 10:10:55 262 140-400 (K /uL) Final MPV 03/12/2023 10:10:55 10.4 6.6-11.1 ( fL) Final Performing Location [facility]ORY [facility] [place] [facility] 0 - [address] [place] [address]
--- OUTSIDE RECORDS SUMMARY | 2023-05-27 07:51 | External Medical Summary ---
Author Name Unknown Address Unknown Organization K0G:[facility] [facility] - [address] [place] [address] Laboratory Report Ordering Provider Test Date Status LEXY PERALES 03/12/2023 13:14:49 Final Observation Date Value Abnormality Reference (Units ) Status Glucose [Mass/volume] in Serum or Plasma --3 hours post dose glucose 03/12/2023 13:14:49 56 Below low normal 70-139 (mg/dL) Final Performing Location LAB[facility]ATORY [facility] [address] - [address] [place] [address]
--- OUTSIDE RECORDS SUMMARY | 2023-05-27 07:51 | External Medical Summary | Summary of Care ---
Author Name Unknown Organization [facility] Address [address] [place] [address] Phone [phone] Care Team Providers Care Steeplechase Jockey Name Role Phone Guycristy Gardenia Palacio DO Primary Care Provider Reason for Visit * Reason Comments Return Visit Encounter Details Date Type Department Care Team (Late st Contact Info) Description 02/07/2023 1:30 PM EST Office Visit Gynecology/Obstetric s Goldie Mustafa [address] [place] [address] BackIlene gonzalez CRNP [address] [facility] [place] [address] Supervision of high risk in third trimester*; Obesity in , antepartum; Recurrent loss, currently ; Chronic hypertension in Allergies No known active allergiesdocumented as of this encounter (statuses as of 02/07/2023) Medications Medication Sig Dispensed Refills Start Date [...] Oral Capsule Take by mouth. 0 Active Promethazine HCl 25 MG Oral Tablet (Phenergan)Indica tions:Nausea/vomi ting in Take 1 Tablet by mouth every 6 hours as needed for Nausea. 30 Tablet 3 10/31/2022 02/07/2023 Discontinued documented as of this encounter (statuses as of 02/07/2023) Active Problems Problem Noted Date Diagnosed Date [...] assessment of proteinuria (24-hour urine protein or ubpygtb-jc-hdvhocmczs ratio) and CBC, serum AST/ALT/creatinine. If patient [...] Readings from Last 8 Encounters: 10/31/22 128/70 02/28/23 128/80 02/08/22 140/78 11/27/21 124/76 10/25/21 128/82 [...] assessment of proteinuria (24-hour urine protein or jmuavrl-bm-imymjsixst ratio) and CBC, serum AST/ALT/creatinine. If patient [...] as of this encounter (statuses as of 02/07/2023) Resolved Problems Problem Noted Date Diagnosed Date [...] as of this encounter (statuses as of 02/07/2023) Immunizations Name Administration Dates Next Due COVID-19 mRNA, LNP-s, No Pre serve, 2-Dose Series ([employer]) 07/01/2020,06/09/2020 COVID-19, LNP-s, No Preserve , Manny-sucrose, Ages 12+ (Pfizer) 01/29/2021 Hepatitis B, 0-19 yrs 09/29/2014,08/29/2014 Hepatitis B, 20+ yrs 03/14/2015 Meningococcal MCV4P Conjugat e Vaccine (Menactra) 10/18/2010 PPD 07/21/2013 SEASONAL INFLUENZA, PF, 6 M & Above, IM , (FLULAVAL or FLUZONE) 12/13/2022,12/19/2021 Seasonal Influenza Virus Vac cine, Unspecified Formulation 11/30/2019 Seasonal Influenza, Quadriva lent, No Preserve, IM 12/28/2020,12/23/2018,12/09/2017 Seasonal Influenza, Split, I IV3, With Preserve, Inj 11/28/2016,01/04/2015 TB Niurka Test 06/09/2015 TD, Preservative Free 05/10/2016 TDAP (age 10 and older)(Bo[employer]) 07/23/2013 documented as of this encounter Social History [...] money to get more. Never true 01/10/2023 [place] Depression Scale Answer Date Recorded [place] Depression Scale Total 1 05/07/2022 The thought of harming myself has occurred to me . Never 05/07/2022 Estimated Date of Delivery Comme nts Yes [...] Sign Reading Time Taken Comments Blood Pressure 140/86 02/07/2023 1:27 PM EST Pulse - - Temperature - - Respiratory Rate - - Oxygen Saturation - - Inhaled Oxygen Concentration - - Weight 131.1 kg (289 lb) 02/07/2023 1:27 PM EST Height - - Body Mass Index 39.2 01/10/2023 1:40 PM EDT documented in this encounter Progress Notes * Ilene Anderson CRNP - 02/07/2023 1:28 PM EST 23w3d + movement. No ctx or bleeding. Saw MFM last week, normal growth u/s. Taking labetalol BID, BP stable. States BPs at home are slightly lower - 110s-120s systolic, 70s-80s diastolic. Labs and 3 hr GTT with next visit, return in 4 weeks. She is aware to fast prior to GTT. MEHDI Comer * Jacinta Mccrary LPN - 02/07/2023 1:27 PM EST 23w3d Denies vaginal bleeding/rom + movement documented in this encounter Plan of Treatment Upcoming Encounters Date Type Department Care Team (Late st Contact Info) Description 03/12/2023 10:00 AM EST Laboratory Laboratory, [facility] [address] [place] [address] [facility] [place] [address] 03/12/2023 10:30 AM EST Office Visit Gynecology/Obstetrics [facility] [address] [place] [address] Madisyn Marino CRNP [address] [place] [address] 03/13/2023 1:45 PM EST Office Visit Behavioral Health Specialist Obstetrics Maternal Medicine, [facility] [address] [place] [address] Meeta Pimentel, DO [address] [place] [address] 03/13/2023 1:45 PM EST Imaging Maternal Medicine Imaging, Aneta Burnett [place] [address] 04/03/2023 8:00 AM EST Imaging Maternal Medicine Imaging, Aneta [address] [place] [address] Scheduled Orders Name Type Priority Associated Diagnoses Orde r Schedule GESTATIONAL GLUCOSE TOLERANCE, 3 HOUR Lab Routine Supervision of high risk in third trimester Expected: 03/10/2023 (Approximate), Expires: 02/08/2024 SYPHILIS ANTIBODY SCREEN WITH REFLEX TO RPR Lab Routine Supervision of high risk in third trimester Expected: 03/10/2023 (Approximate), Expires: 02/08/2024 CBC WITH WBC DIFFERENTIAL AND ANEMIA REFLEX WORKUP Lab Routine Supervision of high risk in third trimester Expected: 03/10/2023 (Approximate), Expires: 02/08/2024 Health Maintenance Due Date Last Done Comments Depression Screening 10/05/2022 10/05/2021 COVID-19 Vaccine ( season) 2022 01/29/2021, 07/01/2020, 06/09/2020 GFR 11/01/2023 10/31/2022, 04/2021, 11/15/2021, Additional history exists Pap Smear 10/31/2025 10/31/2022, 11/09, 12/20/2016 DTaP,Tdap,and Td Vaccines (3 - Td or Tdap) 05/10/2026 05/10/2016, 07/23/2013 GARDASIL-HPV IMMUNIZATION SERIES Addressed 01/20/2008, [...] Comments URINALYSIS, POINT OF CARE (ENTER/EDIT) Routine 02/07/2023 Supervision of high risk in third trimester Chronic hypertension in documented in this encounter Results * URINALYSIS, POINT OF CARE (ENTER/EDIT) (02/07/2023) Color, Urine Yellow Yellow or Light Yellow Clarity, Urine Clear Clear Glucose, Urine Negative Negative mg/dL Bilirubin, Urine Negative Negative Ketone, Urine Negative Negative mg/dL Specific Holland, Urine 1.015 1.003 - 1.030 Blood, Urine Negative Negative pH, Urine 7.0 5.0 - 7.5 units Protein, Urine Negative Negative mg/dL Urobilinogen, Urine 0.2 0.2 - 1.0 mg/dL Nitrite, Urine Negative Negative Esterase, Urine Negative Negative Urine 02/07/2023 Ilene [facility] [...] care documented in this encounter Care Teams Steeplechase Jockey Relationship Specialty Start Date End Date Gardenia Fernandez DO [address] [place] [address] PCP - General Family Medicine 12/24/11 documented as of this encounter
--- OUTSIDE RECORDS SUMMARY | 2023-05-27 07:51 | External Medical Summary | Summary of Care ---
Author Name Unknown Organization [facility] Address [address] [place] [address] Phone [phone] Care Team Providers Care Clam Bed Laborer Name Role Phone Rebecca Varnermaia Palacio Primary Care Provider Encounter Details Date Type Department Care Team (Late st Contact Info) Description 03/13/2023 1:45 PM EST Office Visit Channel Business Manager Obstetrics Maternal Medicine, [address] [place] [address] Meeta Pimentel DO [address] [place] [address] Chronic hypertension in *; Obesity in , antepartum; Ultrasound for screening for growth restriction; 28 weeks gestation of Allergies No known active allergiesdocumented as of this encounter (statuses as of 03/14/2023) Medications Medication Sig Dispensed Refills Start Date [...] as of this encounter (statuses as of 03/14/2023) Active Problems Problem Noted Date Diagnosed Date [...] assessment of proteinuria (24-hour urine protein or kuxkiug-wm-flhvubwlrk ratio) and CBC, serum AST/ALT/creatinine. If patient [...] assessment of proteinuria (24-hour urine protein or xzkftiv-kh-yhtiznfpij ratio) and CBC, serum AST/ALT/creatinine. If patient [...] as of this encounter (statuses as of 03/14/2023) Resolved Problems Problem Noted Date Diagnosed Date [...] as of this encounter (statuses as of 03/14/2023) Immunizations Name Administration Dates Next Due COVID-19 mRNA, LNP-s, No Pre serve, 2-Dose Series ([employer]) 07/01/2020,06/09/2020 COVID-19, LNP-s, No Preserve , Manny-sucrose, Ages 12+ ([employer]) 01/29/2021 Hepatitis B, 0-19 yrs 09/29/2014,08/29/2014 Hepatitis [...] money to get more. Never true 01/10/2023 [place] Depression Scale Answer Date Recorded [place] Depression Scale Total 1 05/07/2022 The thought [...] this encounter Progress Notes * Meeta Pimentel, - 03/14/2023 9:19 AM EST Fernanda presented for an ultrasound for the following indications: Chronic hypertension in Obesity in , antepartum Ultrasound for screening for growth restriction 28 weeks gestation of Ultrasound summary: Patient presented at 28w 2d for growth assessment. Normal growth with EFW 1368 g at 74%ile. Normal SUE at 15.7 cm. Cephalic presentation. I reviewed the ultrasound images. Fernanda was given the opportunity to meet with me if she had any questions. Please refer to the ultrasound report for additional details about today's ultrasound examination. RECOMMENDATIONS: Recommend follow up ultrasound with MFM in 4-6 weeks for growth secondary to above indications. See prior formal MFM consultation note. Thank you for allowing us to participate in the care of this patient. Please call with any questions. Meeta Pimentel DO 03/14/2023 9:19 AM documented in this encounter Plan of Treatment Upcoming Encounters Date Type Department Care Team (Late st Contact Info) Description 03/26/2023 1:30 PM EST Office Visit Gynecology/Obstetrics Nolanjules Brewers [address] [place] [address] Ilene Anderson CRNP [address] [place] [address] 04/03/2023 8:00 AM EST Imaging Maternal Medicine Imaging, Aneta Mustafa [address] [place] [address] 04/08/2023 1:15 PM EST Office Visit Gynecology/Obstetrics Goldie Brewers [address] [place] [address] Ilene Anderson CRNP [address] [place] [address] [place], Non Stress Tests Aneta [address] [place] [address] 04/16/2023 1:00 PM EST Office Visit Gynecology/Obstetrics Goldie Brewers [address] [place] [address] Ilene Anderson CRNP [address] [place] [address] [place], Non Stress Tests Aneta [address] [place] [address] 04/23/2023 1:00 PM EST Office Visit Gynecology/Obstetrics Ovidio'adolph Brewers [address] [place] [address] Ilene Anderson CRNP [address] [place] [address] Ramsey, Non Stress Tests Aneta [address] [place] [address] 04/30/2023 1:00 PM EST Office Visit Gynecology/Obstetrics Goldie Brewers [address] [place] [address] Ilene Anderson CRNP [address] [place] [address] [place] Non Stress Tests Aneta [address] [place] [address] 05/01/2023 9:30 AM EST Imaging Maternal Medicine Imaging, Aneta Mustafa [address] [place] [address] 05/07/2023 2:30 PM EST Office Visit Gynecology/Obstetrics Goldie Mustafa [address] [place], [place] [address] Devon Sparks MD [address] [place] [address] Mustafa, Non Stress Tests Aneta [address] [place] [address] 05/14/2023 2:30 PM EST Office Visit Gynecology/Obstetrics Sult[facility] Mustafa [address] [place] [address] Madisyn Marino CRNP [address] [place] [address] Ramsey, Non Stress Tests Aneta [address] [place] [address] 05/21/2023 2:30 PM EDT Office Visit Gynecology/Obstetrics Goldie Mustafa [address] [place] [address] Lenka Haley MD [address] [place] [address] [place] [address] [place] Non Stress Tests Aneta [address] [place] [address] 05/28/2023 1:00 PM EDT Office Visit Gynecology/Obstetrics Goldie Mustafa [address] [place] [address] Ilene Anderson CRNP [address] [place] [address] [place] Non Stress Tests Aneta [address] [place] [address] 06/02/2023 1:00 PM EDT Office Visit Gynecology/Obstetrics Goldie Mustafa [address] [place] [address] Ilene Anderson CRNP [address] [place] [address] [place] Non Stress Tests Aneta [address] [place] [address] Health Maintenance Due Date Last Done Comments Depression Screening 10/05/2022 10/05/2021 COVID-19 Vaccine ( season) 2022 01/29/2021, 07/01/2020, 06/09/2020 GFR 11/01/2023 10/31/2022, 12/0 04/2021, 11/15/2021, Additional history exists Pap Smear [...] restriction screening for growth retardation using ultrasonics 28 weeks gestation of state, incidental documented in this encounter Care Teams Clam Bed Laborer Relationship Specialty Start Date End Date Gardenia Fernandez DO [address] [place] [address] PCP - General Family Medicine 12/24/11 documented as of this encounter
--- OUTSIDE RECORDS SUMMARY | 2023-05-27 07:51 | External Medical Summary ---
Author Name Unknown Address Unknown Organization K0G:[facility] [place] [facility] - [address] [place] [address] Laboratory Report Ordering Provider Test Date Status LEXY PERALES 03/12/2023 10:10:55 Final Based on ACOG guideline, ges tational diabetes mellitus is diagnosed when any of the following is met:
Fasting is greater than or equal to 95 mg/dL
1 hour is greater than or equal to 180 mg/dL
2 hour is greater than or equal to 155 mg/dL
3 hour is greater than or equal to 140 mg/dL Observation Date Value Abnormality Reference (Units ) Status Glucose, fasting 03/12/2023 10:10:55 98 Above high no rmal 70-94 (mg/dL) Final Performing Location [facility] - [address] [place] [address]
--- OUTSIDE RECORDS SUMMARY | 2023-05-27 07:51 | External Medical Summary | Summary of Care ---
Author Name Unknown Organization [facility] Address [address] [place] [address] Phone [phone] Care Team Providers Care School Services Officer Name Role Phone Gardenia Fernandez Primary Care Provider Encounter Details Date Type Department Care Team (Late st Contact Info) Description 04/03/2023 8:00 AM EST Office Visit Biztalk Consultant Obstetrics Maternal Medicine, [address] [place] [address] Meeta Pimentel DO [address] [place] [address] Chronic hypertension in *; Obesity in , antepartum; Ultrasound for screening for growth restriction; 31 weeks gestation of Allergies No known active allergiesdocumented as of this encounter (statuses as of 04/04/2023) Medications Medication Sig Dispensed Refills Start Date [...] as of this encounter (statuses as of 04/04/2023) Active Problems Problem Noted Date Diagnosed Date [...] assessment of proteinuria (24-hour urine protein or ucmmeuz-ce-fjtubnfzmk ratio) and CBC, serum AST/ALT/creatinine. If patient [...] assessment of proteinuria (24-hour urine protein or mhcjrhd-cc-aesrnrzxyb ratio) and CBC, serum AST/ALT/creatinine. If patient [...] as of this encounter (statuses as of 04/04/2023) Resolved Problems Problem Noted Date Diagnosed Date [...] as of this encounter (statuses as of 04/04/2023) Immunizations Name Administration Dates Next Due COVID-19 mRNA, LNP-s, No Pre serve, 2-Dose Series (ELENZA) 07/01/2020,06/09/2020 COVID-19, LNP-s, No Preserve , Manny-sucrose, Ages 12+ (ELENZA) 01/29/2021 Hepatitis B, 0-19 yrs 09/29/2014,08/29/2014 Hepatitis [...] money to get more. Never true 01/10/2023 [place] Depression Scale Answer Date Recorded [place] Depression Scale Total 3 03/26/2023 The thought [...] encounter Progress Notes * Meeta Pimentel, - 04/04/2023 8:14 AM EST Fernanda presented for an ultrasound for the following indications: Chronic hypertension in Obesity in , antepartum Ultrasound for screening for growth restriction 31 weeks gestation of Ultrasound summary: Patient presented at 31w 2d for growth assessment. Normal growth with EFW 2069 g at 86%ile. Normal SUE at 13.4 cm. Cephalic presentation. I reviewed the ultrasound [...] call with any questions. Meeta Pimentel DO 04/04/2023 8:14 AM documented in this encounter Plan of Treatment Upcoming Encounters Date Type Department Care Team (Late st Contact Info) Description 04/08/2023 1:15 PM EST Office Visit Gynecology/Obstetrics [facility] [address] [place] [address] Ilene Anderson CRNP [address] [place] [address] Ramsey, Non Stress Tests [facility] [address] [place] [address] 04/16/2023 1:00 PM EST Office Visit Gynecology/Obstetrics [facility] [address] [place] [address] BackIlene gonzalez CRNP [address] [place] [address] Ramsey, Non Stress Tests Aneta [address] [place] [address] 04/23/2023 1:00 PM EST Office Visit Gynecology/Obstetrics [facility] [address] [place] [address] BackIlene gonzalez CRNP [address] [place] [address] Ramsey, Non Stress Tests Aneta [address] [place] [address] 04/30/2023 1:00 PM EST Office Visit Gynecology/Obstetrics [facility] [address] [place] [address] Ilene Anderson CRNP [address] [place] [address] Mustafa, Non Stress Tests Aneta [address] [place] [address] 05/01/2023 9:30 AM EST Imaging Maternal Medicine Imaging, Aneta Mustafa [address] [place] [id number] 05/07/2023 2:30 PM EST Office Visit Gynecology/Obstetrics [facility] Mustafa [address] [place] [address] Devon Sparks MD [address] [place] [address] Mustafa, Non Stress Tests Aneta [address] [place] [address] 05/14/2023 2:30 PM EST Office Visit Gynecology/Obstetrics [facility]ie Mustafa [address] [place] [address] Madisyn Marino CRNP [address] [place] [address] Mustafa, Non Stress Tests Aneta [address] [place] [address] 05/21/2023 2:30 PM EDT Office Visit Gynecology/Obstetrics [facility] [address] [place] [address] Lenka Haley MD [address] [place] [address] [place] [address] Ramsey, Non Stress Tests Aneta [address] [place] [address] 05/28/2023 1:00 PM EDT Office Visit Gynecology/Obstetrics [facility]afa [address] [place] [address] Ilene Anderson CRNP [address] [place] [address] Ramsey Non Stress Tests Aneta [address] [place] [address] 06/02/2023 1:00 PM EDT Office Visit Gynecology/Obstetrics Goldie Mustafa [address] [place] [address] Ilene Anderson CRNP [address] [place] [address] MustafaKiki farfan Stress Tests Aneta [address] [place] [address] Health Maintenance Due Date Last Done Comments Depression Screening 10/05/2022 10/05/2021 COVID-19 Vaccine (2022- season) 2022 01/29/2021, 07/01/2020, 06/09/2020 GFR 11/01/2023 [...] restriction screening for growth retardation using ultrasonics 31 weeks gestation of state, incidental documented in this encounter Care Teams School Services Officer Relationship Specialty Start Date End Date Gardenia Fernandez DO [address] [place] [address] PCP - General Family Medicine 12/24/11 documented as of this encounter
--- OUTSIDE RECORDS SUMMARY | 2023-05-27 07:51 | External Medical Summary ---
Author Name Unknown Address Unknown Organization [facility] [place] [address] [place] [address] Laboratory Report Ordering Provider Test Date Status SUDHAKAR PERALESER 03/12/2023 10:10:55 Final Observation Date Value Abnormality Reference (Units ) Status SYNC LEUKOCYTES IN BLOOD BY AUTOMATED COUNT 03/12/2023 10:10:55 12.71 Above high normal 4.00-10.80 (K/uL) Final Segs 03/12/2023 10:10:55 66.5 40.0-75.0 (%) Final Lymphs % 03/12/2023 10:10:55 26.5 18.0-42.0 (%) Final Monos 03/12/2023 10:10:55 5.4 1.0-11.0 (%) Final Eosinophils 03/12/2023 10:10:55 1.4 0.0-6.0 (%) Final Basos 03/12/2023 10:10:55 0.2 0.0-2.0 (%) Final Absolute Segs 03/12/2023 10:10:55 8.45 Above high normal 1.80-7.70 (K/uL) Final Lymphs, absolute 03/12/2023 10:10:55 3.37 1.00-4.80 (K/ul) Final Monos, Abs 03/12/2023 10:10:55 0.69 0.00-1.10 (K/uL) Final Eos, Abs 03/12/2023 10:10:55 0.18 0.00-0.70 (K/uL) Final Basos, Abs 03/12/2023 10:10:55 0.02 0.00-0.20 (K/uL) Final Performing Location [facility]ATORY [facility] [place] [address] [place] [address]
--- OUTSIDE RECORDS SUMMARY | 2023-05-27 07:51 | External Medical Summary | Summary of Care ---
Author Name Unknown Organization [facility] Address [address] [place] [address] Phone [phone] Care Team Providers Care New Home Sales Consultant Name Role Phone Guycristy Gardenia Palacio DO Primary Care Provider Reason for Visit * Reason Comments Return Visit Encounter Details Date Type Department Care Team (Late st Contact Info) Description 03/26/2023 1:30 PM EST Office Visit Gynecology/Obstetric s [facility] Mustafa [address] [place] [address] Ilene Anderson CRNP [address] [place] [address] Supervision of high risk in third trimester*; Obesity in , antepartum; Recurrent loss, currently ; Chronic hypertension in Allergies No known active allergiesdocumented as of this encounter (statuses as of 03/26/2023) Medications Medication Sig Dispensed Refills Start Date [...] as of this encounter (statuses as of 03/26/2023) Active Problems Problem Noted Date Diagnosed Date [...] assessment of proteinuria (24-hour urine protein or jzlazpa-pk-bbvhaplgrh ratio) and CBC, serum AST/ALT/creatinine. If patient [...] assessment of proteinuria (24-hour urine protein or nimhmfp-rj-rzqmebovzi ratio) and CBC, serum AST/ALT/creatinine. If patient [...] as of this encounter (statuses as of 03/26/2023) Resolved Problems Problem Noted Date Diagnosed Date [...] as of this encounter (statuses as of 03/26/2023) Immunizations Name Administration Dates Next Due COVID-19 mRNA, LNP-s, No Pre serve, 2-Dose Series ([employer]) 07/01/2020,06/09/2020 COVID-19, LNP-s, No Preserve , Manny-sucrose, [...] money to get more. Never true 01/10/2023 [place] Depression Scale Answer Date Recorded [place] Depression Scale Total 3 03/26/2023 The thought [...] Sign Reading Time Taken Comments Blood Pressure 126/76 03/26/2023 1:31 PM EST Pulse - - Temperature - - Respiratory Rate - - Oxygen Saturation - - Inhaled Oxygen Concentration - - Weight 129.3 kg (285 lb) 03/26/2023 1:31 PM EST Height - - Body Mass Index 38.65 03/12/2023 10:15 AM EST documented in this encounter Progress Notes * Ilene Anderson CRNP - 03/26/2023 1:36 PM EST 30w1d Baby moving well. No regular ctx, leaking, bleeding. Reports good BP control at home. No symptoms of preE. Has a breast pump. Considering POPs - didn't love her IUD and got migraines with COCs. Up to date with growth u/s. Will start weekly NSTs at 32 weeks. 2 week return MEHDI Comer * Jacinta Mccrary LPN - 03/26/2023 1:34 PM EST 30w1d Denies vaginal bleeding/rom + movement No new concerns documented in this encounter Plan of Treatment Upcoming Encounters Date Type Department Care Team (Late st Contact Info) Description 04/03/2023 8:00 AM EST Imaging Maternal Medicine Imaging, Aneta Mustafa [address] [place] [phone] 04/08/2023 1:15 PM EST Office Visit Gynecology/Obstetrics Goldie Mustafa [address] [place] [address] Ilene Anderson CRNP [address] [place] [address] Ramsey Non Stress Tests Aneta [address] [place] [address] 04/16/2023 1:00 PM EST Office Visit Gynecology/Obstetrics Goldie Mustafa [address] [place] [address] Ilene Anderson CRNP [address] [place] [address] Ramsey Non Stress Tests Aneta [address] [place] [address] 04/23/2023 1:00 PM EST Office Visit Gynecology/Obstetrics [facility] [address] [place] [address] Ilene Anderson CRNP [address] [place] [address] Mustafa, Non Stress Tests Aneta [address] [place] [address] 04/30/2023 1:00 PM EST Office Visit Gynecology/Obstetrics Goldie Brewers [address] [place] [address] Ilene Anderson CRNP [address] [place] [address] Ramsey Non Stress Tests Aneta [address] [place] [address] 05/01/2023 9:30 AM EST Imaging Maternal Medicine Imaging, Aneta Mustafa [address] [place] [address] 05/07/2023 2:30 PM EST Office Visit Gynecology/Obstetrics [facility] [address] [place] [address] Devon Sparks MD [address] [place] [address] Ramsey, Non Stress Tests Aneta [address] [place] [address] 05/14/2023 2:30 PM EST Office Visit Gynecology/Obstetrics [facility] [address] [place] [address] Madisyn Marino CRNP [address] [place] [address] Mustafa, Non Stress Tests Aneta [address] [place] [address] 05/21/2023 2:30 PM EDT Office Visit Gynecology/Obstetrics Goldie Mustafa [address] [place] [address] Lenka Haley MD [address] [place] [address] [place] [address] Ramsey Non Stress Tests Aneta [address] [place] [address] 05/28/2023 1:00 PM EDT Office Visit Gynecology/Obstetrics Goldie Mustafa [address] [place] [address] Ilene Anderson CRNP [address] [place] [address] Ramsey Non Stress Tests Aneta [address] [place] [address] 06/02/2023 1:00 PM EDT Office Visit Gynecology/Obstetrics Goldie Mustafa [address] [place] [address] Ilene Anderosn CRNP [address] [place] [address] Ramsey Non Stress Tests Aneta [address] [place] [address] Health Maintenance Due Date Last Done Comments [...] Comments URINALYSIS, POINT OF CARE (ENTER/EDIT) Routine 03/26/2023 Supervision of high risk in third trimester Chronic hypertension in documented in this encounter Results * URINALYSIS, POINT OF CARE (ENTER/EDIT) (03/26/2023) Color, Urine Yellow Yellow or Light Yellow Clarity, Urine Clear Clear Glucose, Urine Negative Negative mg/dL Bilirubin, Urine Negative Negative Ketone, Urine Negative Negative mg/dL Specific [place], Urine 1.025 1.003 - 1.030 Blood, Urine Negative Negative pH, Urine 8.0 5.0 - 7.5 units Protein, Urine Trace Negative mg/dL Urobilinogen, Urine 1.0 0.2 - 1.0 mg/dL Nitrite, Urine Negative Negative Esterase, Urine Trace Negative Urine 03/26/2023 Ilene Sadler Backer [facility] [...] care documented in this encounter Care Teams New Home Sales Consultant Relationship Specialty Start Date End Date Gardenia Fernandez DO [address] [place] [address] PCP - General Family Medicine 12/24/11 documented as of this encounter
--- OUTSIDE RECORDS SUMMARY | 2023-05-27 07:51 | External Medical Summary | Summary of Care ---
Author Name Unknown Organization [facility] Address [address] [place] [address] Phone [phone] Care Team Providers Care Account Liaison Hospice Name Role Phone Rebecca Gardenia Palacio DO Primary Care Provider Reason for Visit * Reason Comments Non Stress Test Return Visit Encounter Details Date Type Department Care Team (Late st Contact Info) Description 04/08/2023 1:15 PM EST Office Visit Gynecology/Obstetric s [facility] [place] [address] [facility] [place] [address] Ilene Anderson CRNP [address] [place] [address] Ramsey Non Stress Tests Aneta [address] [place] [address] Supervision of high risk in third trimester*; Obesity in , antepartum; Recurrent loss, currently ; Chronic hypertension in Allergies No known active allergiesdocumented as of this encounter (statuses as of 04/08/2023) Medications Medication Sig Dispensed Refills Start Date [...] as of this encounter (statuses as of 04/08/2023) Active Problems Problem Noted Date Diagnosed Date [...] assessment of proteinuria (24-hour urine protein or byeachk-mt-varsqxyrvd ratio) and CBC, serum AST/ALT/creatinine. If patient [...] assessment of proteinuria (24-hour urine protein or zxihumf-yo-ihwfpoyotv ratio) and CBC, serum AST/ALT/creatinine. If patient [...] as of this encounter (statuses as of 04/08/2023) Resolved Problems Problem Noted Date Diagnosed Date [...] as of this encounter (statuses as of 04/08/2023) Immunizations Name Administration Dates Next Due COVID-19 mRNA, LNP-s, No Pre serve, 2-Dose Series ([employer]) 07/01/2020,06/09/2020 COVID-19, LNP-s, No Preserve , Manny-sucrose, [...] money to get more. Never true 01/10/2023 [place] Depression Scale Answer Date Recorded [place] Depression Scale Total 3 03/26/2023 The thought [...] Reading Time Taken Comments Blood Pressure 116/64 04/08/2023 1:00 PM EST Pulse - - Temperature - - Respiratory Rate - - Oxygen Saturation - - Inhaled Oxygen Concentration - - Weight 129.7 kg (286 lb) 04/08/2023 1:00 PM EST Height 182.9 cm (6') 04/08/2023 1:00 PM EST Body Mass Index 38.79 04/08/2023 1:00 PM EST documented in this encounter Progress Notes * Ilene Anderson CRNP - 04/08/2023 1:28 PM EST 32w0d Good movement. No ctx, leaking, bleeding. Followed by MFM, up to date with growth scans. NST today and weekly. MEHDI Comer ASSESSMENT assessment with Non-stress Test completed on 04/08/2023 at 32 weeks gestation for indication of chronic hypertension heart baseline: 140 bpm Variability: Moderate Decelerations: absent Accelerations: present Contractions: None NST start time: 1301 NST stop time: 1327 NST strip reviewed, interpreted, and approved by OB provider, MEHDI Comer. NST strip stored in clinic storage file documented in this encounter Plan of Treatment Upcoming Encounters Date Type Department Care Team (Late st Contact Info) Description 04/16/2023 1:00 PM EST Office Visit Gynecology/Obstetrics Goldie Mustafa [address] [place] [address] Ilene Anderson CRNP [address] [place] [address] Mustafa, Non Stress Tests Aneta [address] [place] [address] 04/23/2023 1:00 PM EST Office Visit Gynecology/Obstetrics Goldie Mustafa [address] [place] [address] Ilene Anderson CRNP [address] [place] [address] Mustafa, Non Stress Tests Aneta [address] [place] [address] 04/30/2023 1:00 PM EST Office Visit Gynecology/Obstetrics [facility] Brewers [address] [place] [address] Ilene Anderson CRNP [address] [place] [address] Mustafa, Non Stress Tests Aneta [address] [place] [address] 05/01/2023 9:30 AM EST Imaging Maternal Medicine Imaging, Aneta Mustafa [address] [place] [id number] 05/07/2023 2:30 PM EST Office Visit Gynecology/Obstetrics Goldie Mustafa [address] [place] [address] Devon Sparks MD [address] [place] [address] Mustafa, Non Stress Tests Aneta [address] [place] [address] 05/14/2023 2:30 PM EST Office Visit Gynecology/Obstetrics Goldie Mustafa [address] [place] [address] Madisyn Marino CRNP [address] [place] [address] Mustafa, Non Stress Tests Aneta [address] [place] [address] 05/21/2023 2:30 PM EDT Office Visit Gynecology/Obstetrics Goldie Mustafa [address] [place] [address] Lenka Haley MD [address] [place] [address] [place] [address] Ramsey, Non Stress Tests Aneta [address] [place] [address] 05/28/2023 1:00 PM EDT Office Visit Gynecology/Obstetrics Goldie Mustafa [address] [place] [address] Ilene Anderson CRNP [address] [place] [address] Ramsey Non Stress Tests Aneta [address] [place] [address] 06/02/2023 1:00 PM EDT Office Visit Gynecology/Obstetrics Goldie Mustafa [address] [place] [address] Ilene Anderson CRNP [address] [place] [address] [place] Non Stress Tests Aneta [address] [place] [address] Health Maintenance Due Date Last Done Comments [...] Comments URINALYSIS, POINT OF CARE (ENTER/EDIT) Routine 04/08/2023 Chronic hypertension in documented in this encounter Results * URINALYSIS, POINT OF CARE (ENTER/EDIT) (04/08/2023) Color, Urine Yellow Yellow or Light Yellow Clarity, Urine Clear Clear Glucose, Urine Negative Negative mg/dL Bilirubin, Urine Negative Negative Ketone, Urine Negative Negative mg/dL Specific [place], Urine 1.025 1.003 - 1.030 Blood, Urine Negative Negative pH, Urine 6.5 5.0 - 7.5 units Protein, Urine Negative Negative mg/dL Urobilinogen, Urine 0.2 0.2 - 1.0 mg/dL Nitrite, Urine Negative Negative Esterase, Urine Negative Negative Urine 04/08/2023 Ilene [facility] [...] care documented in this encounter Care Teams Account Liaison Hospice Relationship Specialty Start Date End Date Gardenia Fernandez DO [address] [place] [address] PCP - General Family Medicine 12/24/11 documented as of this encounter
--- OUTSIDE RECORDS SUMMARY | 2023-05-27 07:51 | External Medical Summary ---
Author Name Unknown Address Unknown Organization [facility] [place] [address] [place] [address] Laboratory Report Ordering Provider Test Date Status LEXY PERALES 03/12/2023 11:13:21 Final Observation Date Value Abnormality Reference (Units ) Status Glucose [Mass/volume] in Serum or Plasma --1 hour post dose glucose 03/12/2023 11:13:21 163 70-179 (mg/dL) Final Performing Location [facility]ORY [facility] [place] [address] [place] [address]
--- OUTSIDE RECORDS SUMMARY | 2023-05-27 07:51 | External Medical Summary | Summary of Care ---
Author Name Unknown Organization [facility] Address [address] [place] [address] Phone [phone] Care Team Providers Care Final Assembler Name Role Phone GuycristyGardenia DO Primary Care Provider Reason for Visit * Reason Comments Outpatient Testing Encounter Details Date Type Department Care Team (Late st Contact Info) Description 03/12/2023 10:00 AM [facility] Laboratory Laboratory, [facility] [address] [place] [phone] [facility] [address] [place] [address] Supervision of high risk in third trimester Allergies No known active allergiesdocumented as of this encounter (statuses as of 03/12/2023) Medications Medication Sig Dispensed Refills Start Date [...] as of this encounter (statuses as of 03/12/2023) Active Problems Problem Noted Date Diagnosed Date [...] assessment of proteinuria (24-hour urine protein or choitan-yt-tdffetnfdj ratio) and CBC, serum AST/ALT/creatinine. If patient [...] assessment of proteinuria (24-hour urine protein or bjuwsap-lw-oxoblqhtrq ratio) and CBC, serum AST/ALT/creatinine. If patient [...] as of this encounter (statuses as of 03/12/2023) Resolved Problems Problem Noted Date Diagnosed Date [...] as of this encounter (statuses as of 03/12/2023) Immunizations Name Administration Dates Next Due COVID-19 mRNA, LNP-s, No Pre serve, 2-Dose Series ([place]) 07/01/2020,06/09/2020 COVID-19, LNP-s, No Preserve , Manny-sucrose, [...] money to get more. Never true 01/10/2023 [place] Depression Scale Answer Date Recorded [place] Depression Scale Total 1 05/07/2022 The thought [...] as of this encounter Miscellaneous Notes * Addendum Note - Dev Portillo TECH - 03/12/2023 4:57 PM ESTAddended by: DEV PORTILLO on: 03/12/2023 04:57 PM Modules accepted: Orders documented in this encounter Plan of Treatment Upcoming Encounters Date Type Department Care Team (Late st Contact Info) Description 03/13/2023 1:45 PM EST Office Visit Ghost Writer Obstetrics Maternal Medicine, Aneta Mustafa [address] [place] [address] Meeta Pimentel Nationi, DO [address] [facility], [place] [address] 03/13/2023 1:45 PM EST Imaging Maternal Medicine Imaging, Aneta Mustafa [address] [place] [address] 03/26/2023 1:30 PM EST Office Visit Gynecology/Obstetrics [facility] [address] [place] [address] BackerIlene CRNP [address] [place] [address] 04/03/2023 8:00 AM EST Imaging Maternal Medicine Imaging, Aneta Brewers [address] [place] [address] 04/08/2023 1:15 PM EST Office Visit Gynecology/Obstetrics [facility] Mustafa [address] [place] [address] Backer, MEHDI Seals [address] [place] [address] Ramsey, Non Stress Tests Aneta [address] [place] [address] 04/16/2023 1:00 PM EST Office Visit Gynecology/Obstetrics [facility] [address] [place] [address] BackerIlene CRNP [address] [place] [address] Mustafa, Non Stress Tests Aneta [address] [place] [address] 04/23/2023 1:00 PM EST Office Visit Gynecology/Obstetrics [facility] [address] [place] [address] Backer, MEHDI Seals [address] [place] [address] Mustafa, Non Stress Tests Aneta [address] [place] [address] 04/30/2023 1:00 PM EST Office Visit Gynecology/Obstetrics [facility] [address] [place] [address] Bhaskarer, MEHDI Seals [address] [place] [address] Ramsey, Non Stress Tests Aneta [address] [place] [address] 05/07/2023 2:30 PM EST Office Visit Gynecology/Obstetrics [facility] [address] [place] [address] Devon Sparks MD [address] [place] [address] Ramsey, Non Stress Tests Aneta [address] [place] [address] 05/14/2023 2:30 PM EST Office Visit Gynecology/Obstetrics [facility] [address] [place] [address] Madisyn Marino CRNP [address] [place] [address] Mustafa, Non Stress Tests Aneta [address] [place] [address] 05/21/2023 2:30 PM EDT Office Visit Gynecology/Obstetrics [facility] [address] [place] [address] Lenka Haley MD [address] [place] [address] [place] [address] Ramsey, Non Stress Tests Aneta [address] [place] [address] 05/28/2023 1:00 PM EDT Office Visit Gynecology/Obstetrics God[facility] Mustafa [address] [place] [address] BackerIlene CRNP [address] [place] [address] Mustafa Non Stress Tests Aneta [address] [place] [address] 06/02/2023 1:00 PM EDT Office Visit Gynecology/Obstetrics Goldie Mustafa [address] [place], [place] [address] BackerIlene CRNP [address] [place] [address] Mustafa Non Stress Tests Aneta [address] [place] [address] Pending Results Name Type Priority Associated Diagnoses Date /Time SYPHILIS ANTIBODY SCREEN WITH REFLEX TO RPR Lab Routine Supervision of high risk in third trimester 03/12/2023 10:10 AM EST CBC WITH WBC DIFFERENTIAL AND ANEMIA REFLEX WORKUP Lab Routine Supervision of high risk in third trimester 03/12/2023 10:10 AM EST SYPHILIS ANTIBODY SCREEN Lab Routine Supervision of high risk in third trimester 03/12/2023 10:10 AM EST ANEMIA REFLEX CHEMISTRY HOLD Lab Routine Supervision of high risk in third trimester 03/12/2023 10:10 AM EST Scheduled Orders Name Type Priority Associated Diagnoses Orde r Schedule EXTRA TUBES Lab Routine Ordered: 05/2023 EXTRA GOLD TOP Lab Routine Ordered: 0 03/12/2023 Health Maintenance Due Date Last Done Comments [...] Procedure Name Priority Date/Time Associated Diagnosis Comments 100-G GESTATIONAL GLUCOSE, 3 HOUR Routine 03/12/2023 1:14 PM EST Supervision of high risk in third trimester 100-G GESTATIONAL GLUCOSE, 2 HOUR Routine 03/12/2023 12:14 PM EST Supervision of high risk in third trimester 100-G GESTATIONAL GLUCOSE, 1 HOUR Routine 03/12/2023 11:13 AM EST Supervision of high risk in third trimester GESTATIONAL GLUCOSE TOLERANCE, 3 HOUR Routine 03/12/2023 10:10 AM EST Supervision of high risk in third trimester ANEMIA CBC Routine 03/12/2023 10:10 AM EST Supervision of high risk in third trimester DIFFERENTIAL, AUTOMATED Routine 03/12/2023 10:10 AM EST Supervision of high risk in third trimester 100-G GESTATIONAL GLUCOSE, FASTING Routine 03/12/2023 10:10 AM EST Supervision of high risk in third trimester documented in this encounter Results * (ABNORMAL) 100-G GESTATIONAL GLUCOSE, 3 HOUR (03/12/2023 1:14 PM EST) 100-g Gestational Glucose, 3 Hour 56(L) 70 - 139 mg/dL 03/12/2023 1:50 PM EST LABORATORY [place] 57-10 Blood Venous blood specimen / Unknown Venipuncture / Unknown 03/12/2023 1:14 PM EST 03/12/2023 1:15 PM EST Ilene HARDING LAB BLOOD O RDERABLES LABORATORY [place] 57-10 [facility] [place] [address] * 100-G GESTATIONAL GLUCOSE, 2 HOUR (03/12/2023 12:14 PM EST) 100-g Gestational Glucose, 2 Hour 108 70 - 154 mg/dL 03/12/2023 1:27 PM EST LABORATORY [place] 57-10 Blood Venous blood specimen / Unknown Venipuncture / Unknown 03/12/2023 12:14 PM EST 03/12/2023 12:14 PM EST Ilene HARDING LAB BLOOD O RDERABLES LABORATORY [place] 57-10 [facility] [place] [address] * 100-G GESTATIONAL GLUCOSE, 1 HOUR (03/12/2023 11:13 AM EST) 100-g Gestational Glucose, 1 Hour 163 70 - 179 mg/dL 03/12/2023 12:17 PM EST LABORATORY [facility] [place] 57-10 Blood Venous blood specimen / Unknown Venipuncture / Unknown 03/12/2023 11:13 AM EST 03/12/2023 11:13 AM EST Ilene Sadler Backer FURNACE MASON LAB BLOOD O RDERABLES LABORATORY [facility] 57-10 [address] [place] [address] * (ABNORMAL) DIFFERENTIAL, AUTOMATED (03/12/2023 10:10 AM EST) Pathologist [facility] WBC 12.71(H) 4.00 - 10.80 K/uL 03/12/2023 10:37 AM EST [facility] Neutrophils % 66.5 40.0 - 75.0 % 03/12/2023 10:37 AM EST LABORATORY [place] 57-10 Lymphocytes % 26.5 18.0 - 42.0 % 03/12/2023 10:37 AM EST LABORATORY [place] 57-10 Monocytes % 5.4 1.0 - 11.0 % 03/12/2023 10:37 AM EST LAB[facility]ATORY [place] 57-10 Eosinophils % 1.4 0.0 - 6.0 % 03/12/2023 10:37 AM EST LABORATORY [place] 57-10 Basophils % 0.2 0.0 - 2.0 % 03/12/2023 10:37 AM EST LAB[facility]ATORY [place] 57-10 Absolute Neutrophils 8.45(H) 1.80 - 7.70 K/uL 03/12/2023 10:37 AM EST LABORATORY [place] 57-10 Absolute Lymphocytes 3.37 1.00 - 4.80 K/ul 03/12/2023 10:37 AM EST LABORATORY [place] 57-10 Absolute Monocytes 0.69 0.00 - 1.10 K/uL 03/12/2023 10:37 AM EST LABORATORY [place] 57-10 Absolute Eosinophils 0.18 0.00 - 0.70 K/uL 03/12/2023 10:37 AM EST LABORATORY [place] 57-10 Absolute Basophils 0.02 0.00 - 0.20 K/uL 03/12/2023 10:37 AM EST LABORATORY [facility] 57-10 Blood Venous blood specimen / Unknown Venipuncture / Unknown 03/12/2023 10:10 AM EST 03/12/2023 10:10 AM EST Ilene Sadler Backer FURNACE MASON LAB BLOOD O RDERABLES LABORATORY [facility] 57-10 [address] [place] [address] * (ABNORMAL) ANEMIA CBC (03/12/2023 10:10 AM EST) WBC 12.71(H) 4.00 - 10.80 K/uL 03/12/2023 10:37 AM EST LABORATORY [facility] 57-10 RBC 4.14 3.85 - 5.15 M/uL 03/12/2023 10:37 AM EST LABORATORY [facility] 57-10 HGB 12.9 12.0 - 15.3 g/dL 03/12/2023 10:37 AM EST LABORATORY [facility] 57-10 Comment: Anemia reflex testing triggers on a HGB < 12.0 for Females and HGB < 13.0 for Males in accordance with the WHO Anemia Guidelines Anemia reflex testing triggers on a HGB < 12.0 for Females and HGB < 13.0 for Males in accordance with the WHO Anemia Guidelines HCT 37.8 36.0 - 45.2 % 03/12/2023 10:37 AM EST LABORATORY [facility] 57-10 MCV 91.3 81.5 - 97.5 fL 03/12/2023 10:37 AM EST LABORATORY [facility] 57-10 MCH 31.2 27.0 - 34.0 pg 03/12/2023 10:37 AM EST LABORATORY [facility] 57-10 MCHC 34.1 32.0 - 36.0 g/dL 03/12/2023 10:37 AM EST LABORATORY [facility] 57-10 RDW 13.0 11.5 - 15.5 % 03/12/2023 10:37 AM EST LABORATORY [place] 57-10 PLT 262 140 - 400 K/uL 03/12/2023 10:37 AM EST LABORATORY [place] 57-10 MPV 10.4 6.6 - 11.1 fL 03/12/2023 10:37 AM EST LABORATORY [place] 57-10 Blood Venous blood specimen / Unknown Venipuncture / Unknown 03/12/2023 10:10 AM EST 03/12/2023 10:10 AM EST Ilene HARDING LAB BLOOD O RDERABLES Performing Organization Address City/[facility]/ZIP Co de Phone Number LABORATORY [place] [phone] [place] [address] * (ABNORMAL) 100-G GESTATIONAL GLUCOSE, FASTING (03/12/2023 10:10 AM EST) 100-g Gestational Glucose, Fasting 98(H) 70 - 94 mg/dL 03/12/2023 11:55 AM EST LAB[facility]ATORY [place]10 Blood Venous blood specimen / Unknown Venipuncture / Unknown 03/12/2023 10:10 AM EST 03/12/2023 10:10 AM EST Narrative LABORATORY [place] 57-10 - 03/12/2023 11:55 AM EST Based on ACOG guideline, gestational diabetes mellitus is diagnosed when any of the following is met: Fasting is greater than or equal to 95 mg/dL 1 hour is greater than or equal to 180 mg/dL 2 hour is greater than or equal to 155 mg/dL 3 hour is greater than or equal to 140 mg/dL Ilene HARDING LAB BLOOD O RDERABLES Performing Organization Address City/[facility]/ZIP Co de Phone Number [facility] [place] [id number] [place] [address] documented in this encounter Visit Diagnoses Diagnosis Supervision of high risk in third trimester Unspecified high-risk documented in this encounter Care Teams Final Assembler Relationship Specialty Start Date End Date Gardenia Fernandez DO [address] [place] [address] PCP - General Family Medicine 12/24/11 documented as of this encounter
--- OUTSIDE RECORDS SUMMARY | 2023-05-27 07:51 | External Medical Summary | Summary of Care ---
Author Name Unknown Organization [facility] Address [address] [place] [address] Phone [phone] Care Team Providers Care Propeller Inspector Name Role Phone GuycristyGardenia DO Primary Care Provider Reason for Visit * Reason Comments Outpatient Testing Encounter Details Date Type Department Care Team (Late st Contact Info) Description 03/12/2023 10:00 AM [facility] Laboratory Laboratory, [facility] [address] [place] [phone] [facility] [address] [place] [address] Supervision of high risk in third trimester [...] assessment of proteinuria (24-hour urine protein or svuqeyx-vr-qswjyysykl ratio) and CBC, serum AST/ALT/creatinine. If patient [...] assessment of proteinuria (24-hour urine protein or ydpkdtw-ml-xejktfbxpf ratio) and CBC, serum AST/ALT/creatinine. If patient [...] mRNA, LNP-s, No Pre serve, 2-Dose Series ([facility]) 07/01/2020,06/09/2020 COVID-19, LNP-s, No Preserve , Manny-sucrose, [...] money to get more. Never true 01/10/2023 [place] Depression Scale Answer Date Recorded [place] Depression Scale Total 1 05/07/2022 The thought [...] on file documented as of this encounter Plan of Treatment Upcoming Encounters Date Type Department Care Team (Late st Contact Info) Description 03/13/2023 1:45 PM EST Office Visit Damage Adjuster Obstetrics Maternal Medicine, Aneta Mustafa [address] [place] [address] Meeta Pimentel, [facility] [address] [facility] [address] 03/13/2023 1:45 PM EST Imaging Maternal Medicine Imaging, Aneta Mustafa [address] [place] [address] 03/26/2023 1:30 PM EST Office Visit Gynecology/Obstetrics Goldie Mustafa [address] [place], [place] [address] BackerIlene CRNP [address] [place], [place] [address] 04/03/2023 8:00 AM EST Imaging Maternal Medicine Imaging, Aneta Mustafa [address] [place] [address] 04/08/2023 1:15 PM EST Office Visit Gynecology/Obstetrics Goldie Mustafa [address] [place] [address] BackerIlene CRNP [address] [place] [address] Mustafa, Non Stress Tests Aneta [address] [place] [address] 04/16/2023 1:00 PM EST Office Visit Gynecology/Obstetrics Goldie Mustafa [address] [place] [address] BackerIlene CRNP [address] [place], [place] [address] Mustafa, Non Stress Tests Aneta [address] [place] [address] 04/23/2023 1:00 PM EST Office Visit Gynecology/Obstetrics Goldie Mustafa [address] [place] [address] BackerIlene CRNP [address] [place], [place] [address] Mustafa, Non Stress Tests Aneta [address] [place] [address] 04/30/2023 1:00 PM EST Office Visit Gynecology/Obstetrics Ovidio'adolph Brewers [address] [place] [address] Ilene Anderson CRNP [address] [place] [address] Ramsey Non Stress Tests Aneta [address] [place] [address] 05/07/2023 2:30 PM EST Office Visit Gynecology/Obstetrics Goldie Mustafa [address] [place] [address] Devon Sparks MD [address] [place] [address] Ramsey Non Stress Tests Aneta [address] [place] [address] 05/14/2023 2:30 PM EST Office Visit Gynecology/Obstetrics Goldie Mustafa [address] [place] [address] Madisyn Marino CRNP [address] [place] [address] Ramsey Non Stress Tests Aneta [address] [place] [address] 05/21/2023 2:30 PM EDT Office Visit Gynecology/Obstetrics Goldie Mustafa [address] [place] [address] Lenka Haley MD [address] [place] [address] [place] [address] Mustafa, Non Stress Tests Aneta [address] [place] [address] 05/28/2023 1:00 PM EDT Office Visit Gynecology/Obstetrics Goldie Mustafa [address] [place], [place] [address] Ilene Anderson CRNP [address] [place] [address] Ramsey Non Stress Tests Aneta [address] [place] [address] 06/02/2023 1:00 PM EDT Office Visit Gynecology/Obstetrics Goldie Mustafa [address] [place] [address] Ilene Anderson CRNP [address] [place] [address] RamseyKiki Stress Tests Aneta [address] [place] [address] Pending Results Name Type Priority Associated Diagnoses Date /Time GESTATIONAL GLUCOSE TOLERANCE, 3 HOUR Lab Routine Supervision of high risk in third trimester 03/12/2023 10:10 AM EST SYPHILIS ANTIBODY SCREEN WITH REFLEX TO RPR [...] in third trimester 03/12/2023 10:10 AM EST 100-G GESTATIONAL GLUCOSE, 3 HOUR Lab Routine Supervision of high risk in third trimester 03/12/2023 1:14 PM EST Health Maintenance Due Date Last [...] Date/Time Associated Diagnosis Comments 100-G GESTATIONAL GLUCOSE, 2 HOUR Routine 03/12/2023 [...] trimester documented in this encounter Results * 100-G GESTATIONAL GLUCOSE, 2 HOUR (03/12/2023 12:14 PM EST) 100-g Gestational Glucose, 2 Hour 108 70 - 154 mg/dL 03/12/2023 1:27 PM EST LAB[facility]ATORY [place] [facility]-10 Blood Venous blood specimen / Unknown Venipuncture / Unknown 03/12/2023 12:14 PM EST 03/12/2023 12:14 PM EST Ilene Sadler Backer POWER BUILDER DEVELOPER LAB BLOOD O RDERABLES LABORATORY [facility] [place] [address] [facility] [place] [address] * 100-G GESTATIONAL GLUCOSE, 1 HOUR (03/12/2023 11:13 AM EST) 100-g Gestational Glucose, 1 Hour 163 70 - 179 mg/dL 03/12/2023 12:17 PM EST LAB[facility]ATORY [place]10 Blood Venous blood specimen / Unknown Venipuncture / Unknown 03/12/2023 11:13 AM EST 03/12/2023 11:13 AM EST Ilene Lambreba Muroer POWER BUILDER DEVELOPER LAB BLOOD O RDERABLES [facility] [place] 57-10 [address] [place] [address] * (ABNORMAL) DIFFERENTIAL, AUTOMATED (03/12/2023 10:10 AM EST) WBC 12.71(H) 4.00 - 10.80 K/uL 03/12/2023 10:37 AM EST LABORATORY [place] 57-10 Neutrophils % 66.5 40.0 - 75.0 [...] 2.0 % 03/12/2023 10:37 AM EST LABORATORY [place] 57-10 Absolute Neutrophils 8.45(H) 1.80 - 7.70 K/uL 03/12/2023 10:37 AM EST LABORATORY [place] 57-10 Absolute Lymphocytes 3.37 1.00 - 4.80 K/ul 03/12/2023 10:37 AM EST LABORATORY [place] 57-10 Absolute Monocytes 0.69 0.00 - 1.10 K/uL 03/12/2023 10:37 AM EST LABORATORY [place] 57-10 Absolute Eosinophils 0.18 0.00 - 0.70 K/uL 03/12/2023 10:37 AM EST LABORATORY [place] 57-10 Absolute Basophils 0.02 0.00 - 0.20 K/uL 03/12/2023 10:37 AM EST LABORATORY [place] 57-10 Blood Venous blood specimen / Unknown Venipuncture / Unknown 03/12/2023 10:10 AM EST 03/12/2023 10:10 AM EST Ilene Sadler Backer POWER BUILDER DEVELOPER LAB BLOOD O RDERABLES [facility] 57-10 [address] [place] [address] * (ABNORMAL) ANEMIA CBC (03/12/2023 10:10 AM EST) WBC 12.71(H) 4.00 - 10.80 K/uL 03/12/2023 10:37 AM EST LABORATORY [place] 57-10 RBC 4.14 3.85 - 5.15 M/uL 03/12/2023 10:37 AM EST LABORATORY [place] 57-10 HGB 12.9 12.0 - 15.3 g/dL 03/12/2023 10:37 AM EST LABORATORY [place] 57-10 Comment: Anemia reflex testing triggers on a HGB < 12.0 for Females and HGB < 13.0 for Males in accordance with the WHO Anemia Guidelines Anemia reflex testing triggers on a HGB < 12.0 for Females and HGB < 13.0 for Males in accordance with the WHO Anemia Guidelines HCT 37.8 36.0 - 45.2 % 03/12/2023 10:37 AM EST LABORATORY [place] 57-10 MCV 91.3 81.5 - 97.5 fL 03/12/2023 10:37 AM EST LABORATORY [place] 57-10 MCH 31.2 27.0 - 34.0 pg 03/12/2023 10:37 AM EST LABORATORY [place] 57-10 MCHC 34.1 32.0 - 36.0 g/dL 03/12/2023 10:37 AM EST LABORATORY [place] 57-10 RDW 13.0 11.5 - 15.5 % 03/12/2023 10:37 AM EST LABORATORY [place] 57-10 PLT 262 140 - 400 K/uL 03/12/2023 10:37 AM EST LABORATORY [place] 57-10 MPV 10.4 6.6 - 11.1 fL 03/12/2023 10:37 AM EST LABORATORY [place] 57-10 Blood Venous blood specimen / Unknown Venipuncture / Unknown 03/12/2023 10:10 AM EST 03/12/2023 10:10 AM EST Ilene Doroteo HARDING LAB BLOOD O RDERABLES LABORATORY [place] 57-[address] [place] [address] * (ABNORMAL) 100-G GESTATIONAL GLUCOSE, FASTING (03/12/2023 10:10 AM EST) 100-g Gestational Glucose, Fasting 98(H) 70 - 94 mg/dL 03/12/2023 11:55 AM EST LABORATORY [place] 57-10 Blood Venous blood specimen / Unknown Venipuncture / Unknown 03/12/2023 10:10 AM EST 03/12/2023 10:10 AM EST Narrative LABORATORY [place] 57-10 - 03/12/2023 11:55 AM EST Based on ACOG guideline, gestational diabetes mellitus is diagnosed when any of the following is met: Fasting is greater than or equal to 95 mg/dL 1 hour is greater than or equal to 180 mg/dL 2 hour is greater than or equal to 155 mg/dL 3 hour is greater than or equal to 140 mg/dL Ilene Sadler Monica HARDING LAB BLOOD O RDERABLES LABORATORY [place] 57-[address] [place] [address] documented in this encounter Visit Diagnoses Diagnosis Supervision of high risk in third trimester Unspecified high-risk documented in this encounter Care Teams Propeller Inspector Relationship Specialty Start Date End Date Gardenia Fernandez DO [address] [place] [address] PCP - General Family Medicine 12/24/11 documented as of this encounter
--- OUTSIDE RECORDS SUMMARY | 2023-05-27 07:51 | External Medical Summary | Summary of Care ---
Author Name Unknown Organization [facility] Address [address] [place] [address] Phone [phone] Care Team Providers Care Retail Parts Professional Name Role Phone Rebecca Gardenia Palacio DO Primary Care Provider Reason for Visit * Reason Comments Return Visit Encounter Details Date Type Department Care Team (Late st Contact Info) Description 03/12/2023 10:30 AM EST Office Visit Gynecology/Obstetric s Goldie Mustafa [address] [place] [address] Madisyn Marino CRNP [address] [place] [address] Supervision of high risk in third trimester*; Obesity in , antepartum; Recurrent loss, currently ; Chronic hypertension in ; Need for tatbgyrlcx-cdeqsdv-fp rtussis (Tdap) vaccine Allergies No known active allergiesdocumented as of [...] assessment of proteinuria (24-hour urine protein or klqmams-us-evtvdqbtvk ratio) and CBC, serum AST/ALT/creatinine. If patient [...] assessment of proteinuria (24-hour urine protein or zktdnxz-dh-xucyzkvhbw ratio) and CBC, serum AST/ALT/creatinine. If patient [...] mRNA, LNP-s, No Pre serve, 2-Dose Series (Unyqe) 07/01/2020,06/09/2020 COVID-19, LNP-s, No Preserve , Manny-sucrose, [...] money to get more. Never true 01/10/2023 [place] Depression Scale Answer Date Recorded [place] Depression Scale Total 1 05/07/2022 The thought [...] Sign Reading Time Taken Comments Blood Pressure 130/76 03/12/2023 10:15 AM EST Pulse - - Temperature - - Respiratory Rate - - Oxygen Saturation - - Inhaled Oxygen Concentration - - Weight 128.4 kg (283 lb) 03/12/2023 10:15 AM EST Height 182.9 cm (6') 03/12/2023 10:15 AM EST Body Mass Index 38.38 03/12/2023 10:15 AM EST documented in this encounter Progress Notes * Madisyn Marino CRNP - 03/12/2023 10:38 AM EST 28w1d Feeling well overall. Baby is active. No contractions, bleeding, or LOF. Completing 3hr GTT today. TDAP today Growth u/s with MFM tomorrow. To begin NSTs at 32w. [place] * Ivonne Conte LPN - 03/12/2023 10:15 AM EST 28W1D documented in this encounter Nursing Notes * Ivonne Conte LPN - 03/12/2023 10:35 AM EST Patient here for tdap injection. Patient doing well no complaints. Injection given IM as ordered. Patient tolerated well. Patient to follow up as directed. Patient instructed to call if any complications. Patient verbalized understanding of instructions given and her follow up appt for 2 weeks Injection site: Left Deltoid Medication Source: Dispensed stock medication documented in this encounter Plan of Treatment Upcoming Encounters Date Type Department Care Team (Late st Contact Info) Description 03/13/2023 1:45 PM EST Office Visit Flatbed Press Operator Obstetrics Maternal Medicine, [address] [place] [address] Meeta Pmientel, DO [address] [place] [address] 03/13/2023 1:45 PM EST Imaging Maternal Medicine Imaging, [address] [place] [phone] 03/26/2023 1:30 PM EST Office Visit Gynecology/Obstetrics [address] [place] [address] Backer, MEHDI Seals [address] [place] [address] 04/03/2023 8:00 AM EST Imaging Maternal Medicine Imaging, Aneta Mustafa [address] [place] [address] Health Maintenance Due Date Last Done Comments [...] puerperium, unspecified as to episode of care Need for tbfsrzupyg-uquokox-jxstvgjbi (Tdap) vaccine Need for prophylactic vaccination with combined qxprojhjfw-manspro-iyamesasm (DTP) vaccine documented in this encounter Care Teams Retail Parts Professional Relationship Specialty Start Date End Date Gardenia Fernandez DO [address] [place] [address] PCP - General Family Medicine 12/24/11 documented as of this encounter
--- OUTSIDE RECORDS SUMMARY | 2023-05-27 07:51 | External Medical Summary | Summary of Care ---
Author Name Unknown Organization [facility] Address [address] [place] [address] Phone [phone] Care Team Providers Care Packaging Machine Operator Name Role Phone Rebecca Varnermaia Palacio Primary Care Provider Encounter Details Date Type Department Care Team (Late st Contact Info) Description 03/13/2023 1:45 PM EST Office Visit Laborer General Obstetrics Maternal Medicine, [address] [place] [address] Meeta Pimentel DO [address] [place] [address] Chronic hypertension in *; Obesity [...] assessment of proteinuria (24-hour urine protein or scvjkuo-uv-cuhcynamlr ratio) and CBC, serum AST/ALT/creatinine. If patient [...] assessment of proteinuria (24-hour urine protein or yjnnonc-ml-babtfrgjbb ratio) and CBC, serum AST/ALT/creatinine. If patient [...] mRNA, LNP-s, No Pre serve, 2-Dose Series (Moodswing) 07/01/2020,06/09/2020 COVID-19, LNP-s, No Preserve , Manny-sucrose, Ages 12+ (Moodswing) 01/29/2021 Hepatitis B, 0-19 yrs 09/29/2014,08/29/2014 Hepatitis [...] money to get more. Never true 01/10/2023 [place] Depression Scale Answer Date Recorded [place] Depression Scale Total 1 05/07/2022 The thought [...] Nolanjules Brewers [address] [place] [address] Ilene Anderson CRNP [address] [place] [address] 04/03/2023 8:00 AM EST Imaging Maternal Medicine Imaging, Aneta Mustafa [address] [place] [address] 04/08/2023 1:15 PM EST Office Visit Gynecology/Obstetrics Goldie Brewers [address] [place] [address] Ilene Anderson CRNP [address] [place] [address] [place], Non Stress Tests Aneta [address] [place] [address] 04/16/2023 1:00 PM EST Office Visit Gynecology/Obstetrics Goldie Brewers [address] [place] [address] Ilene Anderson CRNP [address] [place] [address] [place], Non Stress Tests Aneta [address] [place] [address] 04/23/2023 1:00 PM EST Office Visit Gynecology/Obstetrics Ovidio'adolph Brewers [address] [place] [address] Ilene Anderson CRNP [address] [place] [address] [place], Non Stress Tests Aneta [address] [place] [address] 04/30/2023 1:00 PM EST Office Visit Gynecology/Obstetrics Goldie Brewers [address] [place] [address] Ilene Anderson CRNP [address] [place] [address] [place] Non Stress Tests Aneta [address] [place] [address] 05/01/2023 9:30 AM EST Imaging Maternal Medicine Imaging, Aneta Mustafa [address] [place] [address] 05/07/2023 2:30 PM EST Office Visit Gynecology/Obstetrics Goldie Mustafa [address] [place], [place] [address] Devon Sparks MD [address] [place] [address] Mustafa, Non Stress Tests Aneta [address] [place] [address] 05/14/2023 2:30 PM EST Office Visit Gynecology/Obstetrics Sultanas Mustafa [address] [place] [address] Madisyn Marino CRNP [address] [place] [address] [place], Non Stress Tests Aneta [address] [place] [address] 05/21/2023 2:30 PM EDT Office Visit Gynecology/Obstetrics Goldie Mustafa [address] [place] [address] Lenka Haley MD [address] [place] [address] [place] [address] [place] Non Stress Tests Aneta [address] [place] [address] 05/28/2023 1:00 PM EDT Office Visit Gynecology/Obstetrics Goldie Mustafa [address] [place] [address] Ilene Anderson CRNP [address] [place] [address] [place] Non Stress Tests Aneta [address] [place] [address] 06/02/2023 1:00 PM EDT Office Visit Gynecology/Obstetrics Goldie Mustafa [address] [place] [address] Ilene Anderson CRNP [address] [place] [address] [place] Non Stress Tests Aneta [address] [place] [address] Health Maintenance Due Date Last Done Comments [...] incidental documented in this encounter Care Teams Packaging Machine Operator Relationship Specialty Start Date End Date Gardenia Fernandez DO [address] [place] [address] PCP - General Family Medicine 12/24/11 documented as of this encounter
--- OUTSIDE RECORDS SUMMARY | 2023-05-27 07:51 | External Medical Summary | Summary of Care ---
Author Name Unknown Organization [facility] Address [address] [place] [address] Phone [phone] Care Team Providers Care Ambulance Dispatcher Name Role Phone Gardenia Fernandez DO Primary Care Provider Encounter Details Date Type Department Care Team (Late st Contact Info) Description 02/24/2023 Orders Only Outcomes Research Department [address] [place], [place] [id number] Pia Costa CHRA [facility] Research Other*[id number] Allergies No known active allergiesdocumented as of this encounter (statuses as of 02/24/2023) Medications Medication Sig Dispensed Refills Start Date [...] as of this encounter (statuses as of 02/24/2023) Active Problems Problem Noted Date Diagnosed Date [...] assessment of proteinuria (24-hour urine protein or kmspkyw-cn-texskpxzju ratio) and CBC, serum AST/ALT/creatinine. If patient [...] assessment of proteinuria (24-hour urine protein or acsrzvw-mo-szirweqefd ratio) and CBC, serum AST/ALT/creatinine. If patient [...] as of this encounter (statuses as of 02/24/2023) Resolved Problems Problem Noted Date Diagnosed Date [...] as of this encounter (statuses as of 02/24/2023) Immunizations Name Administration Dates Next Due COVID-19 mRNA, LNP-s, No Pre serve, 2-Dose Series ([employer]) 07/01/2020,06/09/2020 COVID-19, LNP-s, No Preserve , Manny-sucrose, [...] money to get more. Never true 01/10/2023 [place] Depression Scale Answer Date Recorded [place] Depression Scale Total 1 05/07/2022 The thought [...] Description 03/12/2023 10:00 AM EST [facility] [address] [place] [phone] MustafaShahbaz farfan [facility] [address] [place] [address] 03/12/2023 10:30 AM EST Office Visit Gynecology/Obstetrics Goldie Mustafa [address] [place] [address] Madisyn Marino CRNP [address] [place] [address] 03/13/2023 1:45 PM EST Office Visit Restaurant Cashier Obstetrics Maternal Medicine, [facility] [place] [address] Meeta Pimentel, DO [address] [facility] [address] 03/13/2023 1:45 PM EST Imaging Maternal Medicine Imaging, Aneta Brewers [facility] [place] [address] 04/03/2023 8:00 AM EST Imaging [facility] Medicine [facility] [place] [address] Scheduled Orders Name Type Priority Associated Diagnoses Orde r Schedule MYCODE SUBSEQUENT ADULT Lab Routine [facility] Research Other*[id number] Every 6 Months for 2 Occurrences starting 02/24/2023 until 03/15/2024 Health Maintenance Due Date Last Done Comments [...] as of this encounter Visit Diagnoses Diagnosis [facility] Research Other*[id number] documented in this encounter Care Teams Ambulance Dispatcher Relationship Specialty Start Date End Date Gardenia Fernandez DO [address] [place] [address] PCP - General Family Medicine 12/24/11 documented as of this encounter
--- OUTSIDE RECORDS SUMMARY | 2023-05-27 07:51 | External Medical Summary ---
Author Name Unknown Address Unknown Organization K0G:[facility] [place] [address] [place] [address] Laboratory Report Ordering Provider Test Date Status LEXY PERALES 03/12/2023 12:14:41 Final Observation Date Value Abnormality Reference (Units ) Status Glucose, 2-hr post glucose challenge 03/12/2023 12:14:41 108 70-154 (mg/dL) Final Performing Location [facility] [place] [address] [place] [address]
--- OUTSIDE RECORDS SUMMARY | 2023-05-27 07:52 | External Medical Summary ---
Author Name Unknown Address Unknown Organization : Laboratory Report Ordering Provider Test Date Status LEXY PERALES 01/10/2023 14:02:25 Final Observation Date Value Abnormality Reference (Units ) Status INTERPRETATION 01/10/2023 14:02:25 SEE BELOW Final Screen negative for open NTD . RISK FOR ONTD 01/10/2023 14:02:25 1:1602 Final CALC'D GESTATIONAL AGE 1101/10/2023 14:02:25 19.4 Final AFP, SERUM 01/10/2023 14:02:25 49.4 (ng/mL) Final AFP MOM 01/10/2023 14:02:25 1.33 Final Reference Range:
NTD <2 .50
IDD <1.90
TWINS <4.00
TWINS IDD <3.50
TRIPLETS <4.50
The AFP test result indicates that this patient is
screen negative for open NTD. It should be noted
that normal test results can never guarantee the
of a normal baby and that 2-3% of newborns
have some type of physical or mental defect, many
of which are undetectable through any known
diagnostic technique.
This is a screening test, not a diagnostic test.
This risk assessment report is based in part on
demographic data provided by the ordering
physician. Please notify the laboratory promptly
if any data are incorrect. For assistance with
recalculations, please call your local [facility]
Diagnostics laboratory. For assistance with
interpretation of these results, please contact
your Local [facility] Diagnostics genetic counselor or
call [phone] ([phone]).
Interpretive Cutoffs
Screen Positive for Open NTD:
> or = 2.50 adjusted MOM
> or = 1.90 adjusted MOM for insulin-dependent diabetics
> or = 4.00 adjusted MOM for twins
> or = 3.50 adjusted MOM for twins insulin-dependent diabetics
> or = 4.50 adjusted MOM for triplets
For additional information, please refer to
[email or web address]/faq/KFE88k9
(This link is being provided for
informational/educational purposes only.) DATE OF 01/10/2023 14:02:25 1995 Final COLLECTION DATE 01/10/2023 14:02:25 01/10/2023 Final MATERNAL WEIGHT 01/10/2023 14:02:25 287 (lbs ) Final EST'D DATE OF DELIVERY 01/10/2023 14:02:25 06/03/2023 Final TREMAYNE DETERMINED BY 01/10/2023 14:02:25 LMP Final MOTHER'S ETHNIC ORIGIN 01/10/2023 14:02:25 WHITE Final NUMBER OF FETUSES 01/10/2023 14:02:25 1 Final INSULIN DEPEND DIABETIC 01/10/2023 14:02:25 NO Final REPEAT SPECIMEN 01/10/2023 14:02:25 NO Final HX OF NEURAL TUBE DEFECTS 01/10/2023 14:02:25 NO Final PREV DOWN SYND 01/10/2023 14:02:25 NO Final DONOR EGG 01/10/2023 14:02:25 NO Final DONOR AGE: EGG RETRIEVAL 01/10/2023 14:02:25 NOT GIVEN Final Test performed by [facility]
[address],
[place] [address]

Voucher Examiner: Shreya Florian MD,PHD,KAYLEEN
Test Reported by [facility],
[facility],
[address] [place], [place]
Mika Wang M.D., Ph.D., Director of Laboratories
, [facility] [id number] Performing Location
--- OUTSIDE RECORDS SUMMARY | 2023-05-27 07:52 | External Medical Summary | Summary of Care ---
Author Name Unknown Organization [facility] Address [address] [place] [address] Phone [phone] Care Team Providers Care Eligibility And Occupancy Interviewer Name Role Phone GuycristyGardenia DO Primary Care Provider Reason for Visit * Reason Comments Outpatient Testing Encounter Details Date Type Department Care Team (Late st Contact Info) Description 01/10/2023 2:00 PM EDT Laboratory Laboratory, [facility] [address] [place] [phone] [facility] [address] [place] [address] Supervision of high risk in second trimester Allergies No known active allergiesdocumented as of this encounter (statuses as of 01/10/2023) Medications Medication Sig Dispensed Refills Start Date [...] mouth at bedtime as needed. 0 Active Promethazine HCl 25 MG Oral Tablet (Phenergan)Indication s:Nausea/vomiting in Take 1 Tablet by mouth every 6 hours as needed for Nausea. 30 Tablet 3 10/31/2022 Active Aspirin 81 MG Oral Capsule Take by mouth. 0 Active documented as of this encounter (statuses as of 01/10/2023) Active Problems Problem Noted Date Diagnosed Date [...] 10/31/2022 02:16 PM Last Assessment & Plan: I reviewed the ultrasound with her. The anatomy that was visualized appears unremarkable. The fetus is in the vertex presentation and the amniotic fluid volume is subjectively normal. The biometry is appropriate for the gestational age. I reviewed her low risk noninvasive screen in light of the normal ultrasound findings. 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 If patient [...] assessment of proteinuria (24-hour urine protein or enwsohq-yf-cgayehlthn ratio) and CBC, serum AST/ALT/creatinine. If patient [...] as of this encounter (statuses as of 01/10/2023) Resolved Problems Problem Noted Date Diagnosed Date [...] as of this encounter (statuses as of 01/10/2023) Immunizations Name Administration Dates Next Due COVID-19 mRNA, LNP-s, No Pre serve, 2-Dose Series (Dovetail) 07/01/2020,06/09/2020 COVID-19, LNP-s, No Preserve , Manny-sucrose, [...] money to get more. Never true 01/10/2023 [place] Depression Scale Answer Date Recorded [place] Depression Scale Total 1 05/07/2022 The thought [...] Care Team (Late st Contact Info) Description 02/03/2023 3:00 PM EST Office Visit Equipment Maintenance Supervisor Obstetrics Maternal Medicine, [place] [address] [place] [address] Julio Laureano DO [address] [place] [address] 02/03/2023 3:00 PM EST [facility] [address] [place] [address] 02/07/2023 1:30 PM EST Office Visit Gynecology/Obstetrics Goldie Mustafa [address] [facility] [place] [address] Backer, MEHDI Seals [address] [place] [address] 03/13/2023 1:45 PM EST Office Visit Equipment Maintenance Supervisor Obstetrics Maternal Medicine, Aneta Mustafa [address] [facility] [place] [address] Meeta Pimentel DO [address] [place] [address] 03/13/2023 1:45 PM EST Imaging Maternal Medicine Imaging, Aneta [address] [place] [phone] 04/03/2023 8:00 AM EST Imaging Maternal Medicine Imaging, Aneta [place] [address] Pending Results Name Type Priority Associated Diagnoses Date /Time MATERNAL SERUM AFP Lab Routine Supervision of high risk in second trimester 01/10/2023 2:02 PM EDT Health Maintenance Due Date Last Done Comments [...] Diagnoses Diagnosis Supervision of high risk in second trimester Unspecified high-risk documented in this encounter Care Teams Eligibility And Occupancy Interviewer Relationship Specialty Start Date End Date Gardenia Fernandez DO [address] [place] [address] PCP - General Family Medicine 12/24/11 documented as of this encounter
--- OUTSIDE RECORDS SUMMARY | 2023-05-27 07:52 | External Medical Summary | Summary of Care ---
Author Name Unknown Organization [facility] Address [address] [place] [address] Phone [phone] Care Team Providers Care Terrazzo Journeyman Name Role Phone Rebecca Gardenia Palacio DO Primary Care Provider Reason for Visit * Reason Comments Ultrasound Encounter Details Date Type Department Care Team (Late st Contact Info) Description 02/03/2023 3:00 PM EST Office Visit Pharmacy Aide Obstetrics Maternal Medicine, [place] [address] [place] [address] Julio Laureano DO [address] [place] [address] Chronic hypertension in *; Obesity in , antepartum; 22 weeks gestation of Allergies No known active allergiesdocumented as of this encounter (statuses as of 02/03/2023) Medications Medication Sig Dispensed Refills Start Date [...] as of this encounter (statuses as of 02/03/2023) Active Problems Problem Noted Date Diagnosed Date [...] assessment of proteinuria (24-hour urine protein or nfvolxu-aq-uabvbgwjzr ratio) and CBC, serum AST/ALT/creatinine. If patient [...] assessment of proteinuria (24-hour urine protein or spyqdfa-yk-iyhzbwwcwz ratio) and CBC, serum AST/ALT/creatinine. If patient [...] as of this encounter (statuses as of 02/03/2023) Resolved Problems Problem Noted Date Diagnosed Date [...] as of this encounter (statuses as of 02/03/2023) Immunizations Name Administration Dates Next Due COVID-19 mRNA, LNP-s, No Pre serve, 2-Dose Series (Bondand[employer]i) 07/01/2020,06/09/2020 COVID-19, LNP-s, No Preserve , Manny-sucrose, [...] money to get more. Never true 01/10/2023 [place] Depression Scale Answer Date Recorded [place] Depression Scale Total 1 05/07/2022 The thought [...] Sign Reading Time Taken Comments Blood Pressure 155/73 02/03/2023 3:09 PM EST Pulse - - Temperature - - Respiratory Rate - - Oxygen Saturation - - Inhaled Oxygen Concentration - - Weight - - Height - - Body Mass Index - - documented in this encounter Progress Notes * Julio Laureano DO - 02/03/2023 4:17 PM EST MATERNAL MEDICINE VISIT Fernanda Rojas is at 22w6d who presents to [facility] for an ultrasound. She is being seen today by Maternal- Medicine for the following reasons: Problem List Items Addressed This Visit Obesity in , antepartum She presents for follow-up of growth and completion of anatomy secondary to class II obesity and CHTN on medications. Today's ultrasound notes the following: The estimated weight is appropriate for gestational age in the 60th percentile. The visualized anatomy is unremarkable in appearance. The amniotic fluid amount appears normal. Chronic hypertension in - Primary Other Visit Diagnoses 22 weeks gestation of For full report, please refer to ultrasound report provided separately. RECOMMENDATIONS: Recommend surveillance starting at 32 weeks secondary to CHTN on medications. Recommend follow up ultrasound with [facility] in 4 weeks for growth. Thank you for allowing us to participate in the care of this patient. Please call with any questions. Julio Laureano DO 02/03/2023 4:17 PM documented in this encounter Miscellaneous Notes * Assessment & Plan Note - Julio Laureano DO - 02/03/2023 3:40 PM EST Associated Problem(s): Obesity in , antepartum She presents for follow-up of growth and completion of anatomy secondary to class II obesity and CHTN on medications. Today's ultrasound notes the following: The estimated weight is appropriate for gestational age in the 60th percentile. The visualized anatomy is unremarkable in appearance. The amniotic fluid amount appears normal. documented in this encounter Plan of Treatment Upcoming Encounters Date Type Department Care Team (Late st Contact Info) Description 02/07/2023 1:30 PM EST Office Visit Gynecology/Obstetrics Goldie Mustafa [address] [place] [address] Ilene Anderson CRNP [address] [place] [address] 03/13/2023 1:45 PM EST Office Visit Pharmacy Aide Obstetrics Maternal Medicine, Aneta Mustafa [address] [place] [address] Meeta Pimentel Kulwant Majo, DO [address] [place] [address] 03/13/2023 1:45 PM EST Imaging Maternal Medicine Imaging, Aneta [address] [place] [phone] 04/03/2023 8:00 AM EST Imaging Maternal Medicine Imaging, Aneta [address] [place] [phone] Health Maintenance Due Date Last Done [...] or the puerperium, antepartum condition or complication 22 weeks gestation of state, incidental documented in this encounter Care Teams Terrazzo Journeyman Relationship Specialty Start Date End Date Gardenia Fernandez DO [address] [place] [address] PCP - General Family Medicine 12/24/11 documented as of this encounter
--- OUTSIDE RECORDS SUMMARY | 2023-05-27 07:52 | External Medical Summary | Summary of Care ---
Author Name Unknown Organization [facility] Address [address] [place] [address] Phone [phone] Care Team Providers Care Roll Line Operator Name Role Phone Rebecca Gardenia Palacio DO Primary Care Provider Reason for Visit * Reason Onset Date Comments Referral 10/31/2022 Encounter Details Date Type Department Care Team (Late st Contact Info) Description 10/31/2022 Telephone Gas Maker Obstetrics Maternal Medicine, [place] [address] [place] [address] [place], Nurse Gas Maker [facility] [address] [place] [address] Referral Allergies No known active allergiesdocumented as of this encounter (statuses as of 01/30/2023) Medications Medication Sig Dispensed Refills Start Date [...] for Nausea. 30 Tablet 3 10/31/2022 Active documented as of this encounter (statuses as of 01/30/2023) Active Problems Problem Noted Date Diagnosed Date [...] assessment of proteinuria (24-hour urine protein or sqptwgj-el-xlzkoomnmj ratio) and CBC, serum AST/ALT/creatinine. If patient [...] assessment of proteinuria (24-hour urine protein or ebplqry-xx-rlznhjkyfb ratio) and CBC, serum AST/ALT/creatinine. If patient [...] as of this encounter (statuses as of 01/30/2023) Resolved Problems Problem Noted Date Diagnosed Date [...] as of this encounter (statuses as of 01/30/2023) Immunizations Name Administration Dates Next Due COVID-19 mRNA, LNP-s, No Pre serve, 2-Dose Series ([employer]) 07/01/2020,06/09/2020 COVID-19, LNP-s, No Preserve , Manny-sucrose, Ages 12+ ([employer]) 01/29/2021 Hepatitis B, 0-19 yrs 09/29/2014,08/29/2014 Hepatitis B, 20+ yrs 03/14/2015 Meningococcal MCV4P Conjugat e Vaccine (Menactra) 10/18/2010 PPD 07/21/2013 SEASONAL INFLUENZA, PF, 6 M & Above, IM , (FLULAVAL or FLUZONE) 12/19/2021 Seasonal Influenza Virus Vac cine, Unspecified Formulation [...] money to get more. Never true 01/10/2023 Noble Depression Scale Answer Date Recorded Noble Depression Scale Total 1 05/07/2022 The thought [...] encounter Miscellaneous Notes * Telephone Encounter - Tashia Vallejo OSA - 11/14/2022 10:46 AM EDT Patient called to reschedule her video visit consult that was canceled. Appointment has been rescheduled. * Telephone Encounter - Holley Bustillos OSA - 11/14/2022 9:56 AM EDT Called, no answer, LVM * Telephone Encounter - Tashia Vallejo OSA - 11/14/2022 9:51 AM EDT Called no answer, left VM * Telephone Encounter - Holley Bustillos OSA - 11/12/2022 12:23 PM EDT Called, no answer, LVM and myg message sent * Telephone Encounter - Jud Viveros MED ASSIST - 11/12/2022 10:07 AM EDT Patient cancelled consult 11/12/22, please contact to reschedule. * Telephone Encounter - Tashia Vallejo OSA - 11/05/2022 11:40 AM EDT Appointments scheduled * Telephone Encounter - Jud Viveros, MED ASSIST - 10/31/2022 2:05 PM EDT Estimated Date of Delivery: 06/03/23 Please schedule for 45 MINUTE CONSULT SIMPLE MEDICAL WITH GAME SHOW HOST, in time frame of next available or atpatient's earliest convenience at location [facility] with the indication of CHTN, miscarriage x2, class II obesity. Please schedule anatomy between 19-21 weeks (01/06/23-01/20/23). Referring Provider: MEHDI Montoya documented in this encounter Plan of Treatment Upcoming Encounters Date Type Department Care Team (Late st Contact Info) Description 02/03/2023 3:00 PM EST Office Visit Gas Maker Obstetrics Maternal Medicine, [place] [address] [place] [address] Julio Laureano, DO [address] [place] [address] 02/03/2023 3:00 PM EST Imaging Radiology [facility], [place] [address] [place] [address] 02/07/2023 1:30 PM EST Office Visit Gynecology/Obstetrics Goldie Brewers [address] [facility] [place] [address] Ilene Anderson CRNP [address] [place] [address] 03/13/2023 1:45 PM EST Office Visit Gas Maker Obstetrics Maternal Medicine, [facility] Must[facility] [place] [address] Meeta Pimentel, [address] [place] [address] 03/13/2023 1:45 PM EST Imaging Maternal Medicine Imaging, Aneta Mustafa [facility] [address] [place] [phone] 04/03/2023 8:00 AM EST Imaging Maternal Medicine Imaging, [facility]eta Mustafa [facility] [place] [phone] Health Maintenance Due Date Last Done Comments [...] Not on filedocumented as of this encounter Care Teams Roll Line Operator Relationship Specialty Start Date End Date Gardenia Fernandez DO [address] [place] [address] PCP - General Family Medicine 12/24/11 documented as of this encounter
--- OUTSIDE RECORDS SUMMARY | 2023-05-27 07:52 | External Medical Summary | Summary of Care ---
Author Name Unknown Organization [facility] Address [address] [place] [address] Phone [phone] Care Team Providers Care Sweeper Driver Name Role Phone Rebecca Gardenia Palacio DO Primary Care Provider Reason for Visit * Reason Comments Ultrasound * Evaluate & Treat - Unlimited Visits (Within 10 days (routine)) - Authorized Specialty Diagnoses / Procedures Referred By Marcelino hillman Referred To Contact Obstetrics/Gynecology / Maternal Medicine Diagnoses High-risk in first trimester Obesity in , antepartum Recurrent loss, currently Chronic hypertension in BhaskarerIlene CRNP [address] [place] [address] Referral ID Status Reason Start Date Expiration Date Visits Requested Visits Authorized [id number] Authorized Specialty Services Required 10/31/2022 10/01/2023 [id number] Encounter Details Date Type Department Care Team (Late st Contact Info) Description 01/06/2023 1:30 PM EDT Office Visit Heel Coverer Machine Operator Obstetrics Maternal Medicine, [place] [address] [place] [address] Olayinka Medley MD [address], [place] [id number] Body mass index (BMI) of 40.0 to 44.9 in adult (HCC)*; Obesity in , antepartum; Chronic hypertension in Allergies No known active allergiesdocumented as of this encounter (statuses as of 01/06/2023) Medications Medication Sig Dispensed Refills Start Date [...] as of this encounter (statuses as of 01/06/2023) Active Problems Problem Noted Date Diagnosed Date [...] assessment of proteinuria (24-hour urine protein or nvloqxh-aa-epvjfqfhtq ratio) and CBC, serum AST/ALT/creatinine. If patient [...] assessment of proteinuria (24-hour urine protein or ohbsail-qa-rhnbhvpmkj ratio) and CBC, serum AST/ALT/creatinine. If patient [...] as of this encounter (statuses as of 01/06/2023) Resolved Problems Problem Noted Date Diagnosed Date [...] as of this encounter (statuses as of 01/06/2023) Immunizations Name Administration Dates Next Due COVID-19 mRNA, LNP-s, No Pre serve, 2-Dose Series ([employer]) 07/01/2020,06/09/2020 COVID-19, LNP-s, No Preserve , Manny-sucrose, [...] the money to buy more. Never true 02/09/20 22 Within the past 12 months, t he food you bought just didn't last and you didn't have money to get more. Never true 02/08/2022 Austin Depression Scale Answer Date Recorded Austin Depression Scale Total 1 05/07/2022 The thought [...] Sign Reading Time Taken Comments Blood Pressure 141/75 01/06/2023 1:19 PM EDT Pulse - - Temperature - - Respiratory Rate - - Oxygen Saturation - - Inhaled Oxygen Concentration - - Weight - - Height - - Body Mass Index - - documented in this encounter Progress Notes * Olayinka Medley MD - 01/06/2023 1:18 PM EDT MATERNAL MEDICINE VISIT Fernanda Rojas is at 18w6d who presents to [facility] for an ultrasound and follow-up of her high risk . The patient is currently 18 weeks and 6 days gestation with class 2 obesity and chronic hypertension on labetalol. She comes in for an evaluation of anatomy. She is being seen today by Maternal- Medicine for the following reasons: Problem List Items Addressed This Visit Body mass index (BMI) of 40.0 to 44.9 in adult (HCC) - Primary (Chronic) Relevant Orders [facility] US PREG FOLLOW UP EACH FETUS Obesity in , antepartum I reviewed the ultrasound with her. The anatomy that was visualized appears unremarkable. Thefetus is in the vertex presentation and the amniotic fluid volume is subjectively normal. The fetalbiometry is appropriate for the gestational age. I reviewed her low risk noninvasive screen in light of the normal ultrasound findings. Relevant Orders [facility] US PREG FOLLOW UP EACH FETUS Chronic hypertension in Relevant Orders [facility] US PREG FOLLOW UP EACH FETUS We reviewed today's ultrasound findings. (For full report, please refer to ultrasound report provided separately). Ms. Rojas's questions were answered to her satisfaction. Ms. Rojas was instructed to notify her primary mixer lever operator if she felt regular contractions (approximately every 10 mins), leaking of fluid, vaginal bleeding or if movement decreased. RECOMMENDATIONS: Recommend surveillance starting at 32 weeks secondary to chronic hypertension on labetalol. Recommend follow up ultrasound with [facility] in 4 weeks for growth secondary to chronic hypertension on labetalol. Thank you for allowing us to participate in the care of this patient. Please call with any questions. Olayinka Medley MD 01/06/2023 1:18 PM documented in this encounter Miscellaneous Notes * Assessment & Plan Note - Olayinka Medley MD - 01/06/2023 2:26 PM EDT Associated Problem(s): Obesity in , antepartum I reviewed the ultrasound with her. The anatomy that was visualized appears unremarkable. Thefetus is in the vertex presentation and the amniotic fluid volume is subjectively normal. The fetalbiometry is appropriate for the gestational age. I reviewed her low risk noninvasive screen in light of the normal ultrasound findings. documented in this encounter Plan of Treatment Upcoming Encounters Date Type Department Care Team (Late st Contact Info) Description 01/10/2023 1:45 PM EDT Office Visit Gynecology/Obstetrics [facility] [address] [facility] [place] [address] Ilene Anderson CRNP [address] [place] [address] 02/03/2023 3:00 PM EST Office Visit Heel Coverer Machine Operator Obstetrics Maternal Medicine, [place] [address] [place] [address] Julio Laureano, [address] [place] [address] 02/03/2023 3:00 PM EST Imaging Radiology [facility] [place], [place] [address] [place] [address] 03/13/2023 1:45 PM EST Office Visit Heel Coverer Machine Operator Obstetrics Maternal Medicine, [facility] [address] [facility] [place] [address] Meeta Pimentel, DO [address] [place] [address] 03/13/2023 1:45 PM EST Imaging Maternal Medicine Imaging, Aneta Mustafa [address] [place] [phone] 04/03/2023 8:00 AM EST Imaging Maternal Medicine Imaging, Aneta Mustafa [address] [place] [address] Scheduled Orders Name Type Priority Associated Diagnoses Orde r Schedule [facility] US PREG FOLLOW UP EACH FETUS Medical Imaging Routine Body mass index (BMI) of 40.0 to 44.9 in adult (HCC) Obesity in , antepartum Chronic hypertension in 5 Occurrences starting 01/06/2023 until 06/03/2023 Health Maintenance Due Date Last Done Comments [...] as of this encounter Visit Diagnoses Diagnosis Body mass index (BMI) of 40.0 to 44.9 in adult (HCC)- Primary Obesity in , antepartum Obesity complicating , childbirth, or the puerperium, antepartum condition or complication Chronic hypertension in Benign essential hypertension complicating , childbirth, and the puerperium, unspecified as to episode of care documented in this encounter Care Teams Sweeper Driver Relationship Specialty Start Date End Date Gardenia Fernandez DO [address] [place] [address] PCP - General Family Medicine 12/24/11 documented as of this encounter
--- OUTSIDE RECORDS SUMMARY | 2023-05-27 07:52 | External Medical Summary | Summary of Care ---
Author Name Unknown Organization [facility] Address [address] [place] [address] Phone [phone] Care Team Providers Care Wind Turbine Installer Name Role Phone Rebecca Gardenia Palacio DO Primary Care Provider Reason for Visit * Reason Comments Return Visit Encounter Details Date Type Department Care Team (Late st Contact Info) Description 01/10/2023 1:45 PM EDT Office Visit Gynecology/Obstetric s Goldie Mustafa [address] [facility] [place] [address] BackIlene gonzalez CRNP [address] [address] Supervision of high risk in second trimester*; Obesity in , antepartum; Recurrent loss, [...] assessment of proteinuria (24-hour urine protein or arpasjz-dl-zsluhmylqq ratio) and CBC, serum AST/ALT/creatinine. If patient [...] assessment of proteinuria (24-hour urine protein or egwjizm-if-veruvyqndh ratio) and CBC, serum AST/ALT/creatinine. If patient [...] mRNA, LNP-s, No Pre serve, 2-Dose Series ([employer]) 07/01/2020,06/09/2020 COVID-19, LNP-s, No Preserve , Manny-sucrose, [...] money to get more. Never true 01/10/2023 [place] Depression Scale Answer Date Recorded [place] Depression Scale Total 1 05/07/2022 The thought [...] Sign Reading Time Taken Comments Blood Pressure 142/80 01/10/2023 1:40 PM EDT Pulse - - Temperature - - Respiratory Rate - - Oxygen Saturation - - Inhaled Oxygen Concentration - - Weight 130.6 kg (288 lb) 01/10/2023 1:40 PM EDT Height 182.9 cm (6') 01/10/2023 1:40 PM EDT Body Mass Index 39.06 01/10/2023 1:40 PM EDT documented in this encounter Progress Notes * Ilene Anderson CRNP - 01/10/2023 1:43 PM EDT 19w3d Completed anatomy u/s with MFM. Feeling movement, no cramping/bleeding. BP stable - will continue to monitor, titrate meds if needed. She reports readings of 110s/60s at home and is aware to call the office with elevated BPs. Discussed MSAFP and role in screening for ONTD; she accepts, will complete today. 4 week return MEHDI Comer * Ivonne Conte LPN - 01/10/2023 1:40 PM EDT 19w3d Denies any issues documented in this encounter Plan of Treatment Upcoming Encounters Date Type Department Care Team (Late st Contact Info) Description 02/03/2023 3:00 PM EST Office Visit In Home Sales Consultant Obstetrics Maternal Medicine, [place] [address] [place] [address] Julio Laureano, [address] [place] [address] 02/03/2023 3:00 PM EST Imaging Radiology [facility] [address] [place] [address] 02/07/2023 1:30 PM EST Office Visit Gynecology/Obstetrics [facility] [address] [place] [address] Ilene Anderson CRNP [address] [place] [address] 03/13/2023 1:45 PM EST Office Visit In Home Sales Consultant Obstetrics Maternal Medicine, [facility]eta Brewers [facility] [place] [address] Meeta Pimentel, DO [address] [facility] [place] [address] 03/13/2023 1:45 PM EST Imaging Maternal Medicine Imaging, Aneta Brewer[address] [place] [phone] 04/03/2023 8:00 AM EST Imaging Maternal Medicine Imaging, [facility]eta [facility] [place] [phone] Pending Results Name Type Priority Associated Diagnoses Date /Time MATERNAL SERUM AFP Lab Routine Supervision of high risk in second trimester 01/10/2023 2:02 PM EDT Scheduled Orders Name Type Priority Associated Diagnoses Orde r Schedule MATERNAL SERUM AFP Lab Routine Supervision of high risk in second trimester Expected: 01/10/2023, Expires: 01/11/2024 Health Maintenance Due Date Last Done Comments [...] Diagnosis Supervision of high risk in second trimester- Primary Unspecified high-risk Obesity in , antepartum Obesity complicating , childbirth, or the puerperium, antepartum condition or complication Recurrent loss, currently Recurrent loss, unspecified as to episode of care or not applicable Chronic hypertension in Benign essential hypertension complicating , childbirth, and the puerperium, unspecified as to episode of care documented in this encounter Care Teams Wind Turbine Installer Relationship Specialty Start Date End Date Gardenia Fernandez DO [address] [place] [address] PCP - General Family Medicine 12/24/11 documented as of this encounter
--- OUTSIDE RECORDS SUMMARY | 2023-05-27 07:53 | External Medical Summary | Summary of Care ---
Author Name Unknown Organization [facility] Address [address] [place] [address] Phone [phone] Care Team Providers Care Piece Dye Worker Name Role Phone GyucristyGardenia DO Primary Care Provider Reason for Visit * Reason Comments Outpatient Testing Encounter Details Date Type Department Care Team Description 11/29/2022 Laboratory Laboratory, [facility] [address] [place] [address] [facility] [address] [place] [address] Glucose intolerance of Allergies No known active allergiesdocumented as of this encounter (statuses as of 11/29/2022) Medications Medication Sig Dispensed Refills Start Date [...] as of this encounter (statuses as of 11/29/2022) Active Problems Problem Noted Date , supervision, high-risk 2022 Obesity in , antepartum 023 Overview: Pre gravid BMI: 39.3 Class 2 obesity Lab Results Component Value Date/Time 50-G GESTATIONAL GLUCOSE, 1 HOUR - [facility] 131 (H) 11/15/2022 02:27 PM HEMOGLOBIN A1C - [facility] 5.4 09/05/2021 09:31 AM Baseline Preeclampsia Labs Lab Results Component Value Date/Time PLATELET AUTO - [facility] 263 10/31/2022 02:26 PM CREATININE - [facility] 0.6 10/31/2022 02:26 PM AST - [facility] 15 10/31/2022 02:26 PM ALT - [facility] 20 10/31/2022 02:26 PM PROTEIN/ CREATININE RATIO, URINE - [facility] 113 10/31/2022 02:16 PM Last Assessment & Plan: CONSIDERATIONS: Discussed obstetrical risks associated with class II obesity (pre- BMI of 35 to 39.9) Reviewed that the accuracy of ultrasound at diagnosing anomalies is significantly decreased for women with an increased BMI. RECOMMENDATIONS: Recommend restricting weight gain during to 11-20 pounds. Patient should be referred for a nutrition consult. Recommend evaluation for signs and symptoms (snoring, excessive daytime sleepiness witnessed apnea or unexplained hypoxia) of obstructive sleep apnea. If any of these are present, referral to Sleep Medicine specialist for further evaluation should be considered. Recommend performing gestational diabetes mellitus screen now (if not performed at first visit) and repeat again at 26-28 weeks if early screen is normal. Recommend Maternal- Medicine ultrasound for anatomy at 20 weeks and for growth every 4 weeks thereafter. Recurrent loss, currently preg nant 10/31/2022 Overview: Miscarriages x 2: Nov 2021 and Feb 2022 Both within first trimester Chronic hypertension in 2022 Overview: Hypertension diagnosed in August 2021 Labetalol 200 mg PO BID Checking daily BP at home, running 110-120's / 80's Obtain baseline lab work JERICA (if not already done) with assessment of proteinuria (24-hour urine protein or xjbewjo-ej-mfeehhnozg ratio) and CBC, serum AST/ALT/creatinine. If patient [...] assessment of proteinuria (24-hour urine protein or ggrezfr-lo-brzipptpro ratio) and CBC, serum AST/ALT/creatinine. If patient [...] (BMI) of 40.0 to 44.9 in adult 12/17/2021 Overview: Per Obesity protocol Estimated Date of Delivery Comme nts Yes 06/03/2023 Based on last me nstrual period of 08/27/2022 documented as of this encounter (statuses as of 11/29/2022) Resolved Problems Problem Noted Date Resolved Date Miscarriage 11/14/2022 11/14/2022 Overview: Miscarriages x2 : 11/2021 and Both within first trimester Mar 2022: APS & Lupus anticoagulant testing:negative Chronic hypertension in 02/08/2022 02/08/2022 Overview: Labetalol Obesity in , antepartum 02/08/2022 04/10/2022 Overview: Class 3 Early GTT, preE labs, growth q4 wks Supervision of high-risk , unspecified trimester 10/25/2021 04/10/2022 Obesity, Class III, BMI 40-49.9 (morbid obesity) 10/25/2021 11/27/2021 Chronic hypertension in 10/25/2021 04/10/2022 Overview: Weekly NSTs 32 weeks Body mass index (BMI) of 40.0 to 44.9 in adult 0 10/15/2021 11/22/2021 Overview: Per Obesity protocol documented as of this encounter (statuses as of 11/29/2022) Immunizations Name Administration Dates Next Due COVID-19 mRNA, LNP-s, No Pre serve, 2-Dose Series ([employer]) 07/01/2020,06/09/2020 COVID-19, LNP-s, No Preserve , Manny-sucrose, Ages 12+ ([employer]) 01/29/2021 Hepatitis B, 0-19 yrs 09/29/2014,08/29/2014 Hepatitis B, 20+ yrs 03/14/2015 Meningococcal MCV4P Conjugat e Vaccine (Menactra) 10/18/2010 PPD 07/21/2013 Seasonal Influenza Virus Vac cine, Unspecified Formulation 11/30/2019 Seasonal Influenza, PF, 6 mo ns & Above, IM , (Flulaval) 12/19/2021 Seasonal Influenza, Quadriva lent, No Preserve, IM [...] once or twice a month 1-2 drinks Alcohol Habits Answer Date Recorded How often do you have a drink containing alcohol ? Monthly or less 02/24/2019 How many drinks containing a lcohol do you have on a typical day when you are drinking? Not asked How often do you have six or more drinks on one occasion? Not asked Food Insecurity Answer Date Recorded Within the past 12 months, y ou worried that your food would run out before you got money to buy more. Never true 02/08/2022 Within the past 12 months, t he food you bought just didn't last and you didn't have money to get more. Never true 02/08/2022 Estimated Date of Delivery Comme nts Yes 06/03/2023 Based on last me nstrual period of 08/27/2022 Sex Assigned at Date Recorded Female 08/27/2021 9:03 PM E DT Job Start Date Occupation Industry Not on file Not on file Not on file documented as of this encounter Plan of Treatment Upcoming Encounters Date Type Specialty Care Team Description 12/13/2022 Office Visit Gynecology Obstetrics Madisyn Marino CRNP [address] [place] [address] 01/06/2023 Office Visit Maternal Medicine Olayinka Medley MD [address] [place] [address] Pending Results Name Type Priority Associated Diagnoses Date /Time GESTATIONAL GLUCOSE TOLERANCE, 3 HOUR Lab Routine Glucose intolerance of 11/29/2022 9:05 AM EDT 100-G GESTATIONAL GLUCOSE, 3 HOUR Lab Routine Glucose intolerance of 11/29/2022 12:05 PM EDT Health Maintenance Due Date Last Done Comments COVID-19 Vaccine (4 - Pfizer series) 03/26/2021 01/29/2021, 07/01/2020, 06/09/2020 Depression Screening 10/05/2022 10/05/2021 Influenza Vaccine (FLU shot) (#1) 2022 12/19/2021, 12/28/2020, 11/30/2019, Additional history exists GFR 11/01/2023 10/31/2022, 12/0 04/2021, 11/15/2021, Additional history exists Pap Smear 10/31/2025 10/31/2022, 11/09, 12/20/2016 DTaP,Tdap,and Td Vaccines (3 - Td or Tdap) 05/10/2026 05/10/2016, 07/23/2013 GARDASIL-HPV IMMUNIZATION SERIES Addressed 01/20/2008, 05/13/2007, 03/10/2007 Overridden with the intention of not completing the topic MENINGOCOCCAL (MENACTRA/MENVEO) Completed 10/18/2010 Hepatitis B Completed 03/14/2015, 09/08, 08/29/2014 Hepatitis C Screening Completed 10/31/2022 , 10/31/2022, 10/31/2022, Additional history exists Pneumococcal Vaccine: Pediatrics (0 to 5 Years) and At-Risk Patients (6 to 64 Years) Aged Out No longer eligible based on patient's age to complete this topic documented as of this encounter Medical Devices Not on filedocumented as of this encounter Procedures Procedure Name Priority Date/Time Associated Diagnosis Comments 100-G GESTATIONAL GLUCOSE, 2 HOUR Routine 11/29/2022 11:10 AM EDT Glucose intolerance of 100-G GESTATIONAL GLUCOSE, 1 HOUR Routine 11/29/2022 10:06 AM EDT Glucose intolerance of 100-G GESTATIONAL GLUCOSE, FASTING Routine 11/29/2022 9:05 AM EDT Glucose intolerance of documented in this encounter Results * (ABNORMAL) 100-G GESTATIONAL GLUCOSE, 2 HOUR (11/29/2022 11:10 AM EDT) 100-g Gestational Glucose, 2 Hour 63(L) 70 - 154 mg/dL 11/29/2022 12:09 PM EDT [facility] Blood Venous blood specimen / Unknown Venipuncture / Unknown 11/29/2022 11:10 AM EDT 11/29/2022 11:10 AM EDT Ilene BERTRANDNP [facility] [place] [address] * 100-G GESTATIONAL GLUCOSE, 1 HOUR (11/29/2022 10:06 AM EDT) 100-g Gestational Glucose, 1 Hour 173 70 - 179 mg/dL 11/29/2022 11:02 AM EDT [facility]10 Blood Venous blood specimen / Unknown Venipuncture / Unknown 11/29/2022 10:06 AM EDT 11/29/2022 10:06 AM EDT Ilene BERTRANDNP LAB B[facility] [address] [place] [address] * (ABNORMAL) 100-G GESTATIONAL GLUCOSE, FASTING (11/29/2022 9:05 AM EDT) 100-g Gestational Glucose, Fasting 106(H) 70 - 94 mg/dL 11/29/2022 9:55 AM EDT [facility]10 Blood Venous blood specimen / Unknown Venipuncture / Unknown 11/29/2022 9:05 AM EDT 11/29/2022 9:05 AM EDT Narrative [facility] - 11/29/2022 9:55 AM EDT Based on ACOG guideline, gestational diabetes mellitus is diagnosed when any of the following is met: Fasting is greater than or equal to 95 mg/dL 1 hour is greater than or equal to 180 mg/dL 2 hour is greater than or equal to 155 mg/dL 3 hour is greater than or equal to 140 mg/dL Ilene Sadler Backer [employer]INDER [employer]ACHINE [facility] [address] documented in this encounter Visit Diagnoses Diagnosis Glucose intolerance of Abnormal maternal glucose tolerance, complicating , childbirth, or the puerperium, unspecified as to episode of care documented in this encounter Care Teams Piece Dye Worker Relationship Specialty Start Date End Date Gardenia Fernandez DO [address] [place] [address] PCP - General Family Medicine 12/24/11 documented as of this encounter
--- OUTSIDE RECORDS SUMMARY | 2023-05-27 07:53 | External Medical Summary ---
Author Name Unknown Address Unknown Organization [facility] - [address] [place] [id number] Laboratory Report Ordering Provider Test Date Status LEXY PERALES 11/29/2022 12:05:05 Final Observation Date Value Abnormality Reference (Units ) Status Glucose [Mass/volume] in Serum or Plasma --3 hours post dose glucose 11/29/2022 12:05:05 63 Below low normal 70-139 (mg/dL) Final Performing Location [facility] 0 - [address] [place] [id number]
--- OUTSIDE RECORDS SUMMARY | 2023-05-27 07:53 | External Medical Summary ---
Author Name Unknown Address Unknown Organization [facility] - [address] [place] [id number] Laboratory Report Ordering Provider Test Date Status LEXY PERALES 11/29/2022 10:06:08 Final Observation Date Value Abnormality Reference (Units ) Status Glucose [Mass/volume] in Serum or Plasma --1 hour post dose glucose 11/29/2022 10:06:08 173 70-179 (mg/dL) Final Performing Location [facility] 0 - [address] [place] [id number]
--- OUTSIDE RECORDS SUMMARY | 2023-05-27 07:53 | External Medical Summary ---
Author Name Unknown Address Unknown Organization [facility] [address] [place] [id number] Laboratory Report Ordering Provider Test Date Status LEXY PERALES 11/29/2022 11:10:51 Final Observation Date Value Abnormality Reference (Units ) Status Glucose, 2-hr post glucose challenge 11/29/2022 11:10:51 63 Below low normal 70-154 (mg/dL) Final Performing Location LAB[facility]ORY [facility] [address] - [address] [place] [id number]
--- OUTSIDE RECORDS SUMMARY | 2023-05-27 07:53 | External Medical Summary | Summary of Care ---
Author Name Unknown Organization [facility] Address [address] [place] [address] Phone [phone] Care Team Providers Care Rat Farmer Name Role Phone GuycristyGardenia DO Primary Care Provider Reason for Visit * Reason Onset Date Comments Test Results 11/28/2022 Encounter Details Date Type Department Care Team Description 11/28/2022 Telephone Gynecology/Obstetrics Nolanjules Mustafa [address] [place] [address] Dalila Dempsey PA-C [address] [facility] [place] [address] Test Results Allergies No known active allergiesdocumented as of this encounter (statuses as of 12/03/2022) Medications Medication Sig Dispensed Refills Start Date [...] as of this encounter (statuses as of 12/03/2022) Active Problems Problem Noted Date , supervision, [...] assessment of proteinuria (24-hour urine protein or edqifqo-jb-venlqzzrny ratio) and CBC, serum AST/ALT/creatinine. If patient [...] assessment of proteinuria (24-hour urine protein or szyemkc-xt-ouovmnsjmp ratio) and CBC, serum AST/ALT/creatinine. If patient [...] as of this encounter (statuses as of 12/03/2022) Resolved Problems Problem Noted Date Resolved Date [...] as of this encounter (statuses as of 12/03/2022) Immunizations Name Administration Dates Next Due COVID-19 mRNA, LNP-s, No Pre serve, 2-Dose Series ([employer]) 07/01/2020,06/09/2020 COVID-19, LNP-s, No Preserve , Manny-sucrose, [...] encounter Miscellaneous Notes * Telephone Encounter - Dalila Dempsey PA-C - 11/28/2022 8:15 AM EDT Low risk qnatal. She is having baby boy if she'd like to know. Please notify. Dalila Dempsey PA-C documented in this encounter Plan of Treatment Upcoming Encounters Date Type Specialty Care Team Description 12/13/2022 Office Visit Gynecology Obstetrics Madisyn Marino CRNP [address] [place] [address] 01/06/2023 Office Visit Maternal Medicine Olayinka Medley MD [address] [facility] [place] [address] Health Maintenance Due Date Last Done Comments COVID-19 Vaccine (4 - Pfizer series) 03/26/2021 01/29/2021, 07/01/2020, 06/09/2020 Depression Screening 10/05/2022 10/05/2021 Influenza Vaccine (FLU shot) (#1) 2022 12/19/2021, 12/28/2020, 11/30/2019, Additional history exists GFR 11/01/2023 10/31/2022, 1204/2021, 11/15/2021, Additional history [...] filedocumented as of this encounter Care Teams Rat Farmer Relationship Specialty Start Date End Date Gardenia Fernandez DO [address] [place] [address] PCP - General Family Medicine 10/16/12 documented as of this encounter
--- OUTSIDE RECORDS SUMMARY | 2023-05-27 07:53 | External Medical Summary ---
Author Name Unknown Address Unknown Organization [facility] - [address] [place] [id number] Laboratory Report Ordering Provider Test Date Status LEXY PERALES 11/29/2022 09:05:43 Final Based on ACOG guideline, ges tational [...] Abnormality Reference (Units ) Status Glucose, fasting 11/29/2022 09:05:43 106 Above high no rmal 70-94 (mg/dL) Final Performing Location [facility] 0 - [address] [place] [id number]
--- OUTSIDE RECORDS SUMMARY | 2023-05-27 07:53 | External Medical Summary | Summary of Care ---
Author Name Unknown Organization [facility] Address [address] [place] [address] Phone [phone] Care Team Providers Care Rn Discharge Name Role Phone Rebecca Gardenia Palacio DO Primary Care Provider Reason for Visit * Reason Onset Date Comments Return Visit Medication Administration 12/13/2022 Flu an d/or Pneumo Inj Encounter Details Date Type Department Care Team Description 12/13/2022 [facility] [address] [place] [address] Madisyn Marino CRNP [address] [facility] [place] [address] Supervision of high risk in second trimester*; Obesity in , antepartum; Recurrent loss, currently ; Chronic hypertension in ; Need for prophylactic vaccination and inoculation against influenza Allergies No known active allergiesdocumented as of this encounter (statuses as of 12/13/2022) Medications Medication Sig Dispensed Refills Start Date [...] as of this encounter (statuses as of 12/13/2022) Active Problems Problem Noted Date , supervision, [...] assessment of proteinuria (24-hour urine protein or rekdbnq-fw-vqqftzsrbu ratio) and CBC, serum AST/ALT/creatinine. If patient [...] assessment of proteinuria (24-hour urine protein or bpeyuhr-ov-hclbecvhfj ratio) and CBC, serum AST/ALT/creatinine. If patient [...] as of this encounter (statuses as of 12/13/2022) Resolved Problems Problem Noted Date Resolved Date [...] as of this encounter (statuses as of 12/13/2022) Immunizations Name Administration Dates Next Due COVID-19 mRNA, LNP-s, No Pre serve, 2-Dose Series ([employer]) 07/01/2020,06/09/2020 COVID-19, LNP-s, No Preserve , Manny-sucrose, Ages 12+ ([employer]) 01/29/2021 Hepatitis B, 0-19 yrs 09/29/2014,08/29/2014 Hepatitis [...] Sign Reading Time Taken Comments Blood Pressure 132/72 12/13/2022 2:19 PM EDT Pulse - - Temperature - - Respiratory Rate - - Oxygen Saturation - - Inhaled Oxygen Concentration - - Weight 128.8 kg (284 lb) 12/13/2022 2:19 PM EDT Height - - Body Mass Index 38.52 11/15/2022 1:31 PM EDT documented in this encounter Progress Notes * MEHDI Heath - 12/13/2022 2:36 PM EDT 15w3d No concerns. Hasn't felt FM yet. Nausea significantly improved. Has started baby asprin. Taking labetalol as directed. Has anatomy u/s with MFM. MEHDI Heath documented in this encounter Plan of Treatment Upcoming Encounters Date Type Specialty Care Team Description 01/06/2023 Office Visit Maternal Medicine Olayinka Medley MD [address] [facility] [place] [address] 01/10/2023 Office Visit Gynecology Obstetrics Backer, MEHDI Seals [address] [facility] [place] [address] Health Maintenance Due Date Last Done Comments [...] as to episode of care Need for prophylactic vaccination and inoculation against influenza documented in this encounter Care Teams Rn Discharge Relationship Specialty Start Date End Date Gardenia Fernandez DO [address] [place] [address] PCP - General Family Medicine 12/24/11 documented as of this encounter
[2023-05-27] MEDS ORDERED: OXYTOCIN 30 UNITS/NSS 30 UNITS/500 ML BAG IV PRN (09:33)
[2023-05-27] MEDS ORDERED: LIDOCAINE 1% LOCAL 20 ML VIAL INFIL PRN (09:33)
--- NOTE | 2023-05-27 09:57 | History & Physical Report ---
Date of Service May 27, 2023 Assessment & Plan (1) Chronic hypertension affecting : Plan: IOL with Cervidil for cervical ripening planned Admission and Anticipated Discharge Date Admission Date: May 27, 2023 History of Present Illness Chief Complaint: chronic hypertension in 39 weeks Primary Care Provider: Gardenia Fernandez, DO 27 F P0020 at 39 weeks admitted to L&D for IOL for chronic hypertension. Her BP has been well controlled throughout her with Labetalol 200 mg PO bid. Her GBS is positive. Denies any headaches, leakage of fluid, swelling in legs, visual changes. Allergies Allergy/AdvReac Type Severity Reaction Status Date / Time No Known Allergies Allergy Mild Unverified 11/15/21 15:33 Home Medications Medication Instructions Recorded Confirmed Type labetalol 100 mg tablet 100 mg PO BID 11/15/21 05/27/23 History aspirin 81 mg capsule 81 mg PO DAILY 05/27/23 05/27/23 History vits no.124-ferrous fum 1 tab PO DAILY 05/27/23 05/27/23 History 27 mg iron-folic acid 800 mcg tablet ( Vitamin) Patient History Medical History Chronic hypertension Incomplete COVID-19 11/09/21 No pertinent past medical history Spontaneous in first trimester Surgical History H/O dilation and curettage Family History Other Incomplete Social History Smoking Status: Never smoker Hx Alcohol Use: No Hx Substance Use: No Preferred Language: Dominican Communication Ability: Effective Associate Professor Of Theatre Required: No Beliefs That Will Affect Care: None marital status: Current Living Situation: Spouse Other Information That Helps Us Care for You: No Feels Safe at Home: Yes Safety Concerns: Feels Safe At This Time Assistive Devices: None OB History Chronic hypertension miscarriage x2 DISABILITY SPECIALIST History D&E Review of Systems All systems reviewed & are unremarkable except as noted in HPI & below Physical Exam Constitutional: WD/WN, vitals as above Eyes: PERRL, conjunctivae normal, anicteric sclerae Respiratory: normal respiratory effort, lungs clear to auscultation Cardiovascular: Rate/Rhythm: regular rate and regular rhythm Gastrointestinal (Abdomen): Inspection/Auscultation: abdomen normal to inspection Musculoskeletal: Extremities: extremities normal to inspection Neurologic: patellar DTR's 2+ bilat, sensation intact Psychiatric: A+Ox3, euthymic affect Genitourinary: OB Exam Abdomen: + fundal height and + vertex Manual OB Exam: + cervical dilation 1 cm, + cervical effacement 50% and + station high OB Exam Monitor Tracing: + external FHT monitor used, + external uterine monitor used, + category I and + normal FHT variability Results & Data Vital Signs (Past 12 Hours) Vital Signs Temp Pulse Resp BP 05/27/23 08:30 20 05/27/23 08:30 36.8 C 20 05/27/23 08:20 36.8 C 20 05/27/23 08:07 113 H 132/80
[2023-05-27 10:08] LABS: Basophils # (auto) 0.06 K/uL (0.00-0.20); Basophils % (auto) 0.5 %; Eosinophils # (auto) 0.14 K/uL (0.00-0.50); Eosinophils % (auto) 1.2 %; Hematocrit (blood only) 37.2 % (37.0-47.0); Hemoglobin 12.9 g/dl (12.0-16.0); Immature Granulocytes # (auto) 0.03 K/uL (0.01-0.20); Immature Granulocytes % (auto) 0.3 %; Lymphocytes # (auto) 2.28 K/uL (1.20-3.40); Lymphocytes % (auto) 19.9 %; Mean Corpuscular Hemoglobin 30.6 pg (25.0-34.0); Mean Corpuscular Hgb Conc 34.7 g/dL (32.0-36.0); Mean Corpuscular Volume 88.2 fL (80.0-100.0); Mean Platelet Volume 10.9 fL (9.4-12.4); Monocytes # (auto) 0.76 K/uL (0.11-0.59); Monocytes % (auto) 6.6 %; Neutrophils # (auto) 8.17 K/uL (1.40-6.50); Neutrophils % (auto) 71.5 %; Platelet Count 217 K/uL (130-400); RDW Coefficient of Variation 13.2 % (11.5-14.5); RDW Standard Deviation 42.4 fL (36.4-46.3); Red Blood Count 4.22 M/uL (4.20-5.40); White Blood Count 11.44 K/ul (4.8-10.8)
[2023-05-27 10:19] LABS: Albumin Globulin Ratio 1.2 (0.9-2); Albumin Level 3.7 gm/dl (3.4-5.0); BUN Creatinine Ratio 14.1 (10-20); Bilirubin Direct 0.1 mg/dl (0-0.2); Bilirubin,Total 0.4 mg/dl (0.2-1.0); Calcium 9.3 mg/dl (8.6-10.3); Creatinine Clr Calc Pharmacy 200.1 ml/min; Est GFR (African American) 140.7 ml/min; Est GFR (Non-African American) 121.4 ml/min; Potassium 3.9 mmol/L (3.5-5.1); Total Protein 6.7 gm/dl (6.0-8.3); Uric Acid 4.1 mg/dl (2.6-7.2)
[2023-05-27] MEDS: DINOPROSTONE 10 MG INSERT PV ONE (10:39)
--- NOTE | 2023-05-27 10:48 | Labor Progress Brief Note ---
Date of Service May 27, 2023 Assessment & Plan Admission and Anticipated Discharge Date Admission Date: May 27, 2023 Physical Exam Genitourinary: OB Exam Monitor Tracing: + external FHT monitor used, + external uterine monitor used, + category I and + normal FHT variability Cervidil 10 mg placed vaginally Results & Data Vital Signs (Past 12 Hours) Vital Signs Temp Pulse Resp BP 05/27/23 08:30 20 05/27/23 08:30 36.8 C 20 05/27/23 08:20 36.8 C 20 05/27/23 08:07 113 H 132/80
[2023-05-27 15:24] LABS: Total Protein Urine Random 8.4 mg/dl (0-11.9)
[2023-05-27 15:30] LABS: Creatinine Urine Random 143.2 mg/dl; Protein Creatinine Ratio Urine 0.1 (0-0.2)
[2023-05-27] MEDS: LABETALOL HCL 100 MG TAB PO SCH (20:48)
--- NOTE | 2023-05-27 22:51 | Labor Progress Brief Note ---
Date of Service May 27, 2023 Assessment & Plan Admission and Anticipated Discharge Date Admission Date: May 27, 2023 Physical Exam Genitourinary: OB Exam Abdomen: + estimated weight (8 lbs.) Manual OB Exam: + cervical dilation 3 cm, + cervical effacement 80% and + station (Cervidil pulled from vagina) -2 OB Exam Monitor Tracing: + external FHT monitor used, + external uterine monitor used, + category I and + normal FHT variability Will start Oxytocin Results & Data Vital Signs (Past 12 Hours) Vital Signs Temp Pulse Resp BP 05/27/23 18:55 18 05/27/23 18:55 36.5 C 18 05/27/23 18:55 20 05/27/23 18:55 94 H 20 125/80 05/27/23 18:30 20 05/27/23 18:30 20 05/27/23 16:30 93 H 133/82 05/27/23 16:28 20 05/27/23 16:28 36.5 C 20 05/27/23 14:22 20 05/27/23 14:22 20 05/27/23 13:57 102 H 129/79 05/27/23 12:00 16 05/27/23 12:00 16 05/27/23 11:30 16 05/27/23 11:30 16 05/27/23 11:13 36.8 C 18 05/27/23 11:13 91 H 113/70 05/27/23 11:00 16 05/27/23 11:00 16
[2023-05-27] MEDS: PENICILLIN GK 6 MU in DEXTROSE 5% 250 ML IV ONE (23:02)
[2023-05-27] MEDS: LACTATED RINGER'S 1,000 ML IV PRN (23:02)
[2023-05-28] MEDS: PENICILLIN GK 3 MU in DEXTROSE 5% 100 ML IV PRN (03:05)
[2023-05-28] MEDS: OXYTOCIN 30 UNITS/NSS 30 UNITS/500 ML BAG IV PRN (07:30)
--- NOTE | 2023-05-28 08:40 | Obstetrical Progress Note ---
Date of Service May 28, 2023 Assessment & Plan Admission and Anticipated Discharge Date Admission Date: May 27, 2023 Subjective Patient is seen and examined She is known to me from 2020 when she had suction D&C for incomplete SAB IOL since yesterday for CHT On low dose Oxytocin, at 3 miu/min No pain for now VE; 4-5 cm/ 505/ -2, FHR categ I Continue to monitor and increase Oxytocin per protocol Epidural when she desires Results & Data Vital Signs (Past 12 Hours) Vital Signs Temp Pulse Resp BP 05/28/23 07:37 82 126/71 05/28/23 07:30 36.4 C L 05/28/23 07:30 36.4 C L 05/28/23 03:21 36.5 C 72 18 113/58 L 05/28/23 00:18 36.8 C 76 18 110/56 L
[2023-05-28] MEDS ORDERED: NALBUPHINE HCL 5 MG in SYRINGE 0 ML IV PRN (09:25)
[2023-05-28] MEDS ORDERED: ROPIVACAINE 0.5% PF 5 MG/ML 20 ML VIAL EPI PRN (09:25)
[2023-05-28] MEDS ORDERED: diphenhydrAMINE 50 MG/ML VIAL IV PRN (09:25)
[2023-05-28] MEDS ORDERED: ONDANSETRON INJ 2 MG/ML 2 ML VIAL IV PRN (09:25)
[2023-05-28] MEDS ORDERED: NALOXONE HCL 0.4 MG/1 ML VIAL/CARP IV PRN (09:25)
[2023-05-28] MEDS ORDERED: NALOXONE HCL 1 MG in SODIUM CHLORIDE 0.9% 1,000 ML IV PRN (09:25)
[2023-05-28] MEDS ORDERED: SODIUM CHLORIDE 0.9% PF INJ 10 ML VIAL EPI PRN (09:25)
[2023-05-28] MEDS ORDERED: BUPIVACAINE 0.25% PF 30 ML VIAL EPI PRN (09:25)
[2023-05-28] MEDS ORDERED: LIDOCAINE 2% MPF LOCAL 5 ML VIAL EPI PRN (09:25)
[2023-05-28] MEDS ORDERED: ePHEDrine sulfate 50 MG/ML AMP IV PRN (09:25)
--- NOTE | 2023-05-28 09:29 | Anesthesiology Consultation ---
Date of Service May 28, 2023 Assessment & Plan ASA ASA2 Proposed Anesthesia Anesthesia Type: Labor Epidural Risk / Benefits Reviewed With: PT / POA / Parent / Guardian, Accepts Plan and Informed Consent Obtained History Height/Weight Height: 6 ft Weight: 132.449 kg Allergies Allergy/AdvReac Type Severity Reaction Status Date / Time No Known Allergies Allergy Mild Unverified 11/15/21 15:33 Medications Home Medications Medication Instructions Recorded Confirmed Last Taken labetalol 100 mg tablet 100 mg PO BID 11/15/21 05/27/23 05/27/23 aspirin 81 mg capsule 81 mg PO DAILY 05/27/23 05/27/23 05/27/23 vits no.124-ferrous fum 1 tab PO DAILY 05/27/23 05/27/23 05/27/23 27 mg iron-folic acid 800 mcg tablet ( Vitamin) Active Medications Generic Name Dose Route Start Last Admin Trade Name Freq PRN Reason Stop Dose Admin Fentanyl/Bupivacaine/Sodium Chlor 100 ml 05/28/23 09:25 05/28/23 09:51 Fentanyl 2 Mcg/Ml Bupivacaine 0.125%-Nss 100ml Bag EPI 05/29/23 09:24 100 ml PRN PRN Administration Pain R/T Labor Protocol Lactated Ringer's 1,000 mls @ 125 mls/hr 05/27/23 09:33 05/28/23 10:02 Lr IV 05/29/23 09:32 125 mls/hr .Q8H PRN Administration L&D Protocol Protocol Penicillin G Potassium 3 mu/ 106 mls @ 100 mls/hr 05/27/23 12:33 05/28/23 07:08 Dextrose IV 06/06/23 12:32 100 mls/hr Q4H PRN Administration GBS(+) Until Delivery Oxytocin 30 units in 500 mls @ 5 mls/hr 05/27/23 22:52 05/28/23 09:07 Pitocin 30 Units/Nss IV 05/29/23 22:51 0.3 units/hr .Q24H PRN 5 mls/hr Labor Induction/Augmentation Titration Protocol 0.3 UNITS/HR Labetalol HCl 100 mg 05/27/23 21:00 05/28/23 09:06 Labetalol Hcl 100 Mg Tab PO 06/26/23 20:59 100 mg BID MENA Administration Past Medical History Medical History Chronic hypertension Incomplete COVID-19 11/09/21 No pertinent past medical history Spontaneous in first trimester Exercise / Class Metabolic Activity II 4-5 Yardwork/Stairs/Walk up hill Past Family History Family History Other Incomplete Past Surgical History Surgical History H/O dilation and curettage Past Anesthesia History No Hx of Anesthesia Complications and No Family Hx of Anesthesia Complications History of PONV No Hx of PONV and No Hx of Motion Sickness Social History Smoking Status: Never smoker Hx Alcohol Use: No Hx Substance Use: No substance use type: does not use Review of Systems denies fever/cough/ colds/ chest pain/ SOB/ BECKA denies BECKA Physical Exam Vital Signs Last Vital Signs Temp 36.4 C L 05/28/23 07:30 Pulse 81 05/28/23 10:06 Resp 18 05/28/23 03:21 BP 125/69 05/28/23 10:06 Pulse Ox 96 05/28/23 10:02 ENMT Mouth: no TMJ abnormality and no dentition abnormality Thyromental Distance: > or= 3.5 Finger Breadths Mallampati Class: II Neck neck extension not limited Respiratory normal respiratory effort; no respiratory distress Auscultation: lungs clear to auscultation bilaterally Cardiovascular Rate/Rhythm: regular rate and regular rhythm Neurologic moves all extremities Psychiatric Orientation: alert and oriented x 3 Testing Laboratory Results 05/27/23 09:44 05/27/23 09:44
[2023-05-28] MEDS: fentANYL 2 MCG/ML BUPIVacaine 0.125%-NSS 100ML BAG EPI PRN (09:51)
[2023-05-28] MEDS: fentaNYL citrate PF 100 MCG/2 ML VIAL EPI PRN (10:07)
[2023-05-28] MEDS: BUPIVACAINE 0.25% PF 30 ML VIAL EPI STA (10:09)
[2023-05-28] MEDS: LIDOCAINE 2%/EPINEPHRINE 1:200,000 20 ML PF EPI STA (10:10)
[2023-05-28] MEDS: fentANYL 2 MCG/ML BUPIVacaine 0.125%-NSS 100ML BAG ONE (10:11)
[2023-05-28] MEDS: BUPIVACAINE 0.25% PF 30 ML VIAL ONE ×2 (10:11→13:30)
[2023-05-28] MEDS: LIDOCAINE 2%/EPINEPHRINE 1:200,000 20 ML PF ONE ×2 (10:11→13:29)
[2023-05-28] MEDS: fentaNYL citrate PF 100 MCG/2 ML VIAL EPI STA (10:11)
[2023-05-28] MEDS: SODIUM CHLORIDE 0.9% PF INJ 10 ML VIAL ONE ×2 (10:11→14:52)
[2023-05-28] MEDS: fentaNYL citrate PF 100 MCG/2 ML VIAL ONE ×2 (10:11→13:30)
[2023-05-28] MEDS: SODIUM CHLORIDE 0.9% PF INJ 10 ML VIAL EPI STA (10:12)
[2023-05-28] MEDS ORDERED: NURSING L&D Epidural Breakthrough Pain Update ONE (12:28)
--- NOTE | 2023-05-28 13:55 | Obstetrical Progress Note ---
Date of Service May 28, 2023 Assessment & Plan Admission and Anticipated Discharge Date Admission Date: May 27, 2023 Subjective Patient got epidural 2nd time to get comfortable. VSS Afebrile VE; 5-6 CM/ 80%/-1, bulging bag, AROM'ed, no fluid, bloody mucus only FHR categ I [place]: ctxs q2-3 min, Oxytocin is at 9 miu/min Continue to monitor closely Results & Data Vital Signs (Past 12 Hours) Vital Signs Temp Pulse Resp BP Pulse Ox 05/28/23 13:47 89 114/67 97 05/28/23 13:43 83 123/73 05/28/23 13:42 86 98 05/28/23 13:37 81 97 05/28/23 13:34 77 126/71 05/28/23 13:32 87 97 05/28/23 13:31 74 125/71 05/28/23 13:28 74 132/74 05/28/23 13:27 77 97 05/28/23 13:26 73 140/80 05/28/23 13:22 83 95 05/28/23 13:17 80 98 05/28/23 13:14 72 131/76 05/28/23 13:12 91 H 98 05/28/23 13:07 79 99 05/28/23 13:02 85 98 05/28/23 13:00 67 119/64 05/28/23 12:57 68 97 05/28/23 12:52 74 98 05/28/23 12:47 79 97 05/28/23 12:44 77 145/74 H 05/28/23 12:42 67 96 05/28/23 12:37 75 98 05/28/23 12:32 85 97 05/28/23 12:30 78 169/94 H 05/28/23 12:27 70 96 05/28/23 12:22 73 98 05/28/23 12:17 73 96 05/28/23 12:14 70 140/76 05/28/23 12:12 77 97 05/28/23 12:07 80 96 05/28/23 12:02 77 97 05/28/23 12:00 79 140/73 05/28/23 11:57 78 96 05/28/23 11:52 72 96 05/28/23 11:47 71 95 05/28/23 11:46 70 132/66 05/28/23 11:42 70 96 05/28/23 11:37 71 95 05/28/23 11:32 66 95 05/28/23 11:30 72 133/71 05/28/23 11:27 67 95 05/28/23 11:22 73 96 05/28/23 11:17 72 96 05/28/23 11:15 81 135/76 05/28/23 11:12 82 96 05/28/23 11:07 73 96 05/28/23 11:02 81 95 05/28/23 11:00 36.5 C 75 136/65 05/28/23 10:57 71 96 05/28/23 10:52 76 96 05/28/23 10:47 74 96 05/28/23 10:45 75 132/74 05/28/23 10:44 77 94 05/28/23 10:42 82 95 05/28/23 10:37 71 96 05/28/23 10:32 79 97 05/28/23 10:29 75 128/74 05/28/23 10:27 80 96 05/28/23 10:23 76 125/61 05/28/23 10:22 77 96 05/28/23 10:18 78 115/63 05/28/23 10:17 79 97 05/28/23 10:12 79 97 05/28/23 10:07 81 96 05/28/23 10:06 81 125/69 05/28/23 10:03 81 117/64 05/28/23 10:02 76 96 05/28/23 09:59 79 116/63 05/28/23 09:57 105 H 97 05/28/23 09:52 86 96 05/28/23 09:47 96 H 97 05/28/23 07:37 82 126/71 05/28/23 07:30 36.4 C L 05/28/23 07:30 36.4 C L 05/28/23 03:21 36.5 C 72 18 113/58 L
--- NOTE | 2023-05-28 14:35 | Communication Note ---
Date of Service: May 28, 2023 ot c/o all over pain. I decided to replace the epidural because she is distant from delivery. catheter removed with tip intact. l3-l4 interspace identified. sterile prep/drape/gloves. 2% lido infiltrated. 18 g touey advanced to rk with air. easy catheter thread. 4 cc of 2% lido with epi test dose. negative IV/IT. divided dosed with 100 mcg of fentanyl and 5 cc of 0.25% bupivicaine. vss. pt report improved pain control
[2023-05-28 14:39] LABS: Basophils # (auto) 0.08 K/uL (0.00-0.20); Basophils % (auto) 0.6 %; Eosinophils # (auto) 0.04 K/uL (0.00-0.50); Eosinophils % (auto) 0.3 %; Hematocrit (blood only) 39.4 % (37.0-47.0); Hemoglobin 13.4 g/dl (12.0-16.0); Immature Granulocytes # (auto) 0.05 K/uL (0.01-0.20); Immature Granulocytes % (auto) 0.4 %; Lymphocytes # (auto) 1.36 K/uL (1.20-3.40); Lymphocytes % (auto) 10.1 %; Mean Corpuscular Hemoglobin 30.7 pg (25.0-34.0); Mean Corpuscular Volume 90.2 fL (80.0-100.0); Mean Platelet Volume 10.8 fL (9.4-12.4); Monocytes # (auto) 0.49 K/uL (0.11-0.59); Monocytes % (auto) 3.6 %; Neutrophils # (auto) 11.44 K/uL (1.40-6.50); Platelet Count 241 K/uL (130-400); RDW Standard Deviation 42.8 fL (36.4-46.3); Red Blood Count 4.37 M/uL (4.20-5.40); White Blood Count 13.46 K/ul (4.8-10.8)
[2023-05-28] MEDS: ePHEDrine sulfate 50 MG/ML AMP ONE ×2 (14:51→14:52)
[2023-05-28 15:51] LABS: Fibrinogen 556 mg/dl (184-400); INR 0.9 (0.9-1.1); Partial Thromboplastin Time 29 Seconds (21-31); Prothrombin Time 10.1 Seconds (9.0-12.0)
[2023-05-28] MEDS ORDERED: HYDROCORTISONE ACETATE 25 MG SUPP PR PRN (17:41)
[2023-05-28] MEDS ORDERED: OXYTOCIN 30 UNITS/NSS 30 UNITS/500 ML BAG IV PRN (17:41)
[2023-05-28] MEDS ORDERED: bisacodyL 10 MG SUPP PR PRN (17:41)
[2023-05-28] MEDS ORDERED: oxyCODONE/ACETAMINOPHEN 5mg/325mg TAB PO PRN (17:41)
--- NOTE | 2023-05-28 17:44 | Delivery Summary ---
Vaginal Delivery Summary Date of Service May 28, 2023 Vaginal Delivery Summary Patient was found to be fully dilated and desired to push. She pushed with one contraction only and delivered the head and then shoulders with minimal traction. The baby was handed off to the mother. The cord was clampedx2 and cut at 1 minute. The vagina and perineum were checked and found to have small 2nd degree perineal laceration. Rectal exam was done and noted good sphincter tone. The gloves were changes. The vaginal mucosa was repaired with 2/0 vicryl and skin on subcuticular fashion. The placenta was delivered spontaneously as intact and complete. The uterus was explored and found to be empty. EBL was 300 ml. The fundus was firm. The baby was a viable male , Apgars 8/9, the weight is pending. The mother and the baby tolerated the procedure well. No complications happened and I was present during whole procedure.
--- NOTE | 2023-05-28 18:29 | Anesthesia Procedure Note ---
Date of Service May 28, 2023 Anesthesia Post Epidural Note Vital Signs Vital Signs: Temp Pulse Resp BP Pulse Ox 36.6 C 110 H 18 146/66 H 98 05/28/23 15:07 05/28/23 18:14 05/28/23 03:21 05/28/23 18:14 05/28/23 17:03 Notes Mental Status: alert / awake / arousable and participated in evaluation Nausea / Vomiting: adequately controlled Pain: adequately controlled Airway Patency, RR, SpO2: stable & adequate BP & HR: stable & adequate Hydration State: stable & adequate Neuraxial Anesthesia: was administered and sensory block resolved Anesthetic Complications: no major complications apparent and Pt Satisfied with anesthetic care Epidural: Removed without complications and With tip intact
[2023-05-28] MEDS: DIPHTHER/TETAN/PERTUS Vaccine (Tdap, Adol/Adult) 0.5mL IM ONE (20:22)
[2023-05-28] MEDS: MEASLES, MUMPS & RUBELLA VIRUS VACCINE (MMR) 0.5ML VIAL SQ ONE (20:23)
[2023-05-28] MEDS: IBUPROFEN 600 MG TAB PO PRN (20:57)
[2023-05-28] MEDS: DOCUSATE SODIUM 100 MG CAP PO SCH (20:57)
[2023-05-28] MEDS: BENZOCAINE 20% SPRY 85 APPLN/85 GM CAN EXT PRN (20:58)
[2023-05-29 06:49] LABS: Hematocrit (blood only) 33.7 % (37.0-47.0); Hemoglobin 11.5 g/dl (12.0-16.0); Mean Corpuscular Hemoglobin 30.4 pg (25.0-34.0); Mean Corpuscular Hgb Conc 34.1 g/dL (32.0-36.0); Mean Corpuscular Volume 89.2 fL (80.0-100.0); Mean Platelet Volume 10.7 fL (9.4-12.4); Platelet Count 194 K/uL (130-400); RDW Standard Deviation 42.4 fL (36.4-46.3); Red Blood Count 3.78 M/uL (4.20-5.40); White Blood Count 12.81 K/ul (4.8-10.8)
[2023-05-29] MEDS: ACETAMINOPHEN 325 MG TAB PO PRN (08:04)
[2023-05-29] MEDS: FERROUS SULFATE 325 MG TAB PO SCH (08:05)
[2023-05-29] MEDS: PRENATAL VITAMIN 1 TAB PO SCH (08:05)
--- NOTE | 2023-05-29 11:58 | Obstetrical Progress Note ---
Date of Service May 29, 2023 Assessment & Plan Admission and Anticipated Discharge Date Admission Date: May 27, 2023 Subjective Patient is seen and examined. She feels well, no complaints. Ambulating without dizziness Voiding without difficulty Tolerating regular diet with out N&V Bleeding is minimal No fever/ chills/ CP/ SOB/ N&V/ Leg pain Breast feeding without problems Lab Results 05/27/23 05/27/23 05/28/23 Range/Units 09:44 Unknown 14:06 WBC 11.44 H 13.46 H (4.8-10.8) K/ul RBC 4.22 4.37 (4.20-5.40) M/uL Hgb 12.9 13.4 (12.0-16.0) g/dl Hct 37.2 39.4 (37.0-47.0) % MCV 88.2 90.2 (80.0-100.0) fL MCH 30.6 30.7 (25.0-34.0) pg MCHC 34.7 34.0 (32.0-36.0) g/dL RDW Std Deviation 42.4 42.8 (36.4-46.3) fL RDW Coeff of [place] 13.2 13.0 (11.5-14.5) % Plt Count 217 241 (130-400) K/uL MPV 10.9 10.8 (9.4-12.4) fL Immature Gran % (Auto) 0.3 0.4 % Neut % (Auto) 71.5 85.0 % Lymph % (Auto) 19.9 10.1 % [place] % (Auto) 6.6 3.6 % Eos % (Auto) 1.2 0.3 % Baso % (Auto) 0.5 0.6 % Neut # (Auto) 8.17 H 11.44 H (1.40-6.50) K/uL Lymph # (Auto) 2.28 1.36 (1.20-3.40) K/uL [place] # (Auto) 0.76 H 0.49 (0.11-0.59) K/uL Eos # (Auto) 0.14 0.04 (0.00-0.50) K/uL Baso # (Auto) 0.06 0.08 (0.00-0.20) K/uL Immature Gran # (Auto) 0.03 0.05 (0.01-0.20) K/uL PT 10.1 (9.0-12.0) Seconds INR 0.9 (0.9-1.1) APTT 29 (21-31) Seconds PTT Ratio 1.0 Fibrinogen 556 H (184-400) mg/dl Sodium 134 L (136-145) mmol/L Potassium 3.9 (3.5-5.1) mmol/L Chloride 106 (98-107) mmol/L Carbon Dioxide 21 (21-32) mmol/L Anion Gap 7 (3-11) BUN 9 (6-23) mg/dl Creatinine 0.64 (0.6-1.2) mg/dl Est Cr Clr Drug Dosing 200.1 ml/min Est GFR ( Amer) 140.7 ml/min Est GFR (Non-Af Amer) 121.4 ml/min BUN/Creatinine Ratio 14.1 (10-20) Glucose 69 L (70-99(Fasting)) mg/dl Uric Acid 4.1 (2.6-7.2) mg/dl Calcium 9.3 (8.6-10.3) mg/dl Total Bilirubin 0.4 (0.2-1.0) mg/dl Direct Bilirubin 0.1 (0-0.2) mg/dl AST 15 (13-39) U/L ALT 15 (7-52) U/L Alkaline Phosphatase 93 (34-104) U/L Lactate Dehydrogenase 133 (86-244) U/L Total Protein 6.7 (6.0-8.3) gm/dl Albumin 3.7 (3.4-5.0) gm/dl Globulin 3.0 (2.5-4.0) gm/dl Albumin/Globulin Ratio 1.2 (0.9-2) Ur Random Creatinine 143.2 mg/dl U Random Total Protein 8.4 (0-11.9) mg/dl Protein/Creatinin Ratio 0.1 (0-0.2) 05/29/23 Range/Units 06:09 WBC 12.81 H (4.8-10.8) K/ul RBC 3.78 L (4.20-5.40) M/uL Hgb 11.5 L (12.0-16.0) g/dl Hct 33.7 L (37.0-47.0) % MCV 89.2 (80.0-100.0) fL MCH 30.4 (25.0-34.0) pg MCHC 34.1 (32.0-36.0) g/dL RDW Std Deviation 42.4 (36.4-46.3) fL RDW Coeff of [place] 13.0 (11.5-14.5) % Plt Count 194 (130-400) K/uL MPV 10.7 (9.4-12.4) fL Immature Gran % (Auto) % Neut % (Auto) % Lymph % (Auto) % [place] % (Auto) % Eos % (Auto) % Baso % (Auto) % Neut # (Auto) (1.40-6.50) K/uL Lymph # (Auto) (1.20-3.40) K/uL [place] # (Auto) (0.11-0.59) K/uL Eos # (Auto) (0.00-0.50) K/uL Baso # (Auto) (0.00-0.20) K/uL Immature Gran # (Auto) (0.01-0.20) K/uL PT (9.0-12.0) Seconds INR (0.9-1.1) APTT (21-31) Seconds PTT Ratio Fibrinogen (184-400) mg/dl Sodium (136-145) mmol/L Potassium (3.5-5.1) mmol/L Chloride (98-107) mmol/L Carbon Dioxide (21-32) mmol/L Anion Gap (3-11) BUN (6-23) mg/dl Creatinine (0.6-1.2) mg/dl Est Cr Clr Drug Dosing ml/min Est GFR ( Amer) ml/min Est GFR (Non-Af Amer) ml/min BUN/Creatinine Ratio (10-20) Glucose (70-99(Fasting)) mg/dl Uric Acid (2.6-7.2) mg/dl Calcium (8.6-10.3) mg/dl Total Bilirubin (0.2-1.0) mg/dl Direct Bilirubin (0-0.2) mg/dl AST (13-39) U/L ALT (7-52) U/L Alkaline Phosphatase (34-104) U/L Lactate Dehydrogenase (86-244) U/L Total Protein (6.0-8.3) gm/dl Albumin (3.4-5.0) gm/dl Globulin (2.5-4.0) gm/dl Albumin/Globulin Ratio (0.9-2) Ur Random Creatinine mg/dl U Random Total Protein (0-11.9) mg/dl Protein/Creatinin Ratio (0-0.2) Vital Signs Temp Pulse Pulse Resp BP BP Pulse Ox 05/29/23 08:00 36.6 C 81 20 116/72 05/29/23 03:30 36.5 C 81 18 117/69 05/28/23 23:20 36.5 C 80 18 125/70 05/28/23 19:45 36.8 C 130 H 18 112/63 05/28/23 19:13 36.6 C 130 H 18 112/63 05/28/23 18:58 125 H 108/59 L 05/28/23 18:44 116 H 130/77 05/28/23 18:33 120 H 132/60 05/28/23 18:29 123 H 172/70 H 05/28/23 18:14 110 H 146/66 H 05/28/23 17:58 102 H 139/65 05/28/23 17:43 98 H 134/62 05/28/23 17:28 100 H 143/63 H 05/28/23 17:13 109 H 137/70 05/28/23 17:03 141 H 98 05/28/23 17:00 108 H 149/86 H 05/28/23 16:58 115 H 97 05/28/23 16:53 122 H 97 05/28/23 16:51 120 H 93 05/28/23 16:48 87 97 05/28/23 16:43 91 H 131/74 96 05/28/23 16:38 89 96 05/28/23 16:33 91 H 96 05/28/23 16:28 88 123/72 96 05/28/23 16:23 79 96 05/28/23 16:18 81 96 05/28/23 16:13 84 134/75 97 05/28/23 16:08 86 95 05/28/23 16:04 91 H 93 05/28/23 16:03 88 97 05/28/23 15:59 73 127/73 05/28/23 15:58 76 97 05/28/23 15:53 72 96 05/28/23 15:48 69 96 05/28/23 15:44 73 125/68 05/28/23 15:43 80 96 05/28/23 15:39 75 92 05/28/23 15:38 75 97 05/28/23 15:33 76 97 05/28/23 15:28 73 125/69 97 05/28/23 15:23 98 05/28/23 15:23 75 03 15:23 73 132/70 05/28/23 15:18 65 96 05/28/23 15:17 63 122/66 05/28/23 15:13 69 98 05/28/23 15:12 68 128/71 05/28/23 15:08 77 98 05/28/23 15:07 36.6 C 83 125/80 91 05/28/23 15:03 81 97 05/28/23 15:02 80 127/76 05/28/23 15:01 84 92 05/28/23 14:58 99 05/28/23 14:58 82 05/28/23 14:58 84 117/71 05/28/23 14:53 83 98 05/28/23 14:52 86 115/69 05/28/23 14:48 79 98 05/28/23 14:47 81 123/71 05/28/23 14:45 80 94 05/28/23 14:43 96 05/28/23 14:43 74 05/28/23 14:43 78 120/72 05/28/23 14:38 93 H 116/67 95 05/28/23 14:37 89 111/63 05/28/23 14:33 70 96 05/28/23 14:32 100 H 119/67 05/28/23 14:28 97 05/28/23 14:28 70 03 14:28 71 117/64 05/28/23 14:23 97 05/28/23 14:23 90 05/28/23 14:23 95 H 111/71 05/28/23 14:18 98 05/28/23 14:18 93 H 05/28/23 14:18 96 H 118/65 05/28/23 14:13 87 97 05/28/23 14:12 81 115/65 05/28/23 14:09 96 H 94 05/28/23 14:07 82 98 05/28/23 14:03 77 107/64 05/28/23 14:02 76 96 05/28/23 13:57 98 05/28/23 13:57 75 05/28/23 13:57 82 113/65 05/28/23 13:53 82 111/69 05/28/23 13:52 80 97 05/28/23 13:47 89 114/67 97 05/28/23 13:43 83 123/73 05/28/23 13:42 86 98 05/28/23 13:37 81 97 05/28/23 13:34 77 126/71 05/28/23 13:32 87 97 05/28/23 13:31 74 125/71 05/28/23 13:28 74 132/74 05/28/23 13:27 77 97 05/28/23 13:26 73 140/80 05/28/23 13:22 83 95 05/28/23 13:17 80 98 05/28/23 13:14 72 131/76 05/28/23 13:12 91 H 98 05/28/23 13:07 79 99 05/28/23 13:02 85 98 05/28/23 13:00 67 119/64 05/28/23 12:57 68 97 05/28/23 12:52 74 98 05/28/23 12:47 79 97 05/28/23 12:44 77 145/74 H 05/28/23 12:42 67 96 05/28/23 12:37 75 98 05/28/23 12:32 85 97 05/28/23 12:30 78 169/94 H 05/28/23 12:27 70 96 05/28/23 12:22 73 98 05/28/23 12:17 73 96 05/28/23 12:14 70 140/76 05/28/23 12:12 77 97 05/28/23 12:07 80 96 05/28/23 12:02 77 97 05/28/23 12:00 79 140/73 O2 Del Method 05/29/23 08:00 Room Air 05/29/23 03:30 05/28/23 23:20 05/28/23 19:45 05/28/23 19:13 05/28/23 18:58 05/28/23 18:44 05/28/23 18:33 05/28/23 18:29 05/28/23 18:14 05/28/23 17:58 05/28/23 17:43 05/28/23 17:28 05/28/23 17:13 05/28/23 17:03 05/28/23 17:00 05/28/23 16:58 05/28/23 16:53 05/28/23 16:51 05/28/23 16:48 05/28/23 16:43 05/28/23 16:38 05/28/23 16:33 05/28/23 16:28 05/28/23 16:23 05/28/23 16:18 05/28/23 16:13 05/28/23 16:08 05/28/23 16:04 05/28/23 16:03 05/28/23 15:59 05/28/23 15:58 05/28/23 15:53 05/28/23 15:48 05/28/23 15:44 05/28/23 15:43 05/28/23 15:39 05/28/23 15:38 05/28/23 15:33 05/28/23 15:28 05/28/23 15:23 05/28/23 15:23 05/28/23 15:23 05/28/23 15:18 05/28/23 15:17 05/28/23 15:13 05/28/23 15:12 05/28/23 15:08 05/28/23 15:07 05/28/23 15:03 05/28/23 15:02 05/28/23 15:01 05/28/23 14:58 05/28/23 14:58 05/28/23 14:58 05/28/23 14:53 05/28/23 14:52 05/28/23 14:48 05/28/23 14:47 05/28/23 14:45 05/28/23 14:43 05/28/23 14:43 05/28/23 14:43 05/28/23 14:38 05/28/23 14:37 05/28/23 14:33 05/28/23 14:32 05/28/23 14:28 05/28/23 14:28 05/28/23 14:28 05/28/23 14:23 05/28/23 14:23 05/28/23 14:23 05/28/23 14:18 05/28/23 14:18 05/28/23 14:18 05/28/23 14:13 05/28/23 14:12 05/28/23 14:09 05/28/23 14:07 05/28/23 14:03 05/28/23 14:02 05/28/23 13:57 05/28/23 13:57 05/28/23 13:57 05/28/23 13:53 05/28/23 13:52 05/28/23 13:47 05/28/23 13:43 05/28/23 13:42 05/28/23 13:37 05/28/23 13:34 05/28/23 13:32 05/28/23 13:31 05/28/23 13:28 05/28/23 13:27 05/28/23 13:26 05/28/23 13:22 05/28/23 13:17 05/28/23 13:14 05/28/23 13:12 05/28/23 13:07 05/28/23 13:02 05/28/23 13:00 05/28/23 12:57 05/28/23 12:52 05/28/23 12:47 05/28/23 12:44 05/28/23 12:42 05/28/23 12:37 05/28/23 12:32 05/28/23 12:30 05/28/23 12:27 05/28/23 12:22 05/28/23 12:17 05/28/23 12:14 05/28/23 12:12 05/28/23 12:07 05/28/23 12:02 05/28/23 12:00 Intake and Output 05/28/23 05/29/23 05/29/23 22:59 06:59 14:59 Intake Total 1557.316 / 2176.333 Output Total 850 / 1150 Balance 707.316 / 1026.333 Intake: IV 1557.316 / 2176.333 Lactated Ringer's 1,000 ml @ 1000 / 1358.333 125 mls/hr IV .Q8H PRN Rx#: [id number] Oxytocin 30 Units/Nss 30 units 451.316 / 500.000 In 500 ml @ 1.14 UNITS/HR 19 mls/hr IV .Q24H PRN Rx#: [id number] Penicillin Gk 3 mu In Dextrose 106 / 318 5% 100 ml @ 100 mls/hr IV Q4H PRN Rx#:[id number] Output: Urine 650 / 950 Urine Amount (Catheter) 200 / 200 Straight 200 / 200 PE: General: Alert, orientedx3, NAD Abd: soft, NT, fundus firm, below Umbilicus Perineum intact, Lochia rubra minimal Ext; NT, no edema AP: 27 yo s/p , ppd# 1 VSS Afebrile doing well Continue routine care All questions were answered D/C home tomorrow Results & Data Vital Signs (Past 12 Hours) Vital Signs Temp Pulse Resp BP O2 Del Method 05/29/23 08:00 36.6 C 81 20 116/72 Room Air 05/29/23 03:30 36.5 C 81 18 117/69
[2023-05-29] MEDS: bisacodyL 5 MG TABEC PO SCH (20:47)
[2023-05-30 06:12] LABS: Hematocrit (blood only) 31.3 % (37.0-47.0); Hemoglobin 10.9 g/dl (12.0-16.0)
--- NOTE | 2023-05-30 08:44 | Obstetrical Progress Note ---
Date of Service May 30, 2023 Assessment & Plan Admission and Anticipated Discharge Date Admission Date: May 27, 2023 Supervising Physician Co-Signing Physician Notes Rolly Weston MD Results & Data Vital Signs (Past 12 Hours) Vital Signs Temp Pulse Resp BP Pulse Ox O2 Del Method 05/30/23 07:53 36.5 C 66 16 108/75 98 Room Air 05/29/23 23:05 36.4 C L 73 18 113/72 97 Room Air 05/29/23 20:45 36.4 C L 85 18 126/82 99 Room Air
== END 2023-05-30 11:35 | disposition home or self-care (01) | DRG 806 ==
LOC: 4S1 07:38 → 4E2 05-28 20:00